=== PATIENT | male | born 1960 | race African-American/Black ===

== ENCOUNTER 2017-09-27 11:36 | Inpatient (IN) | payer OTHER ==
[2017-09-27 12:52] VITALS: BMI 23.9
--- NOTE | 2017-09-27 15:30 | HP ---
CIWA Score - CIWA Score Nausea/Vomitin Muscle Tremors: 3 Anxiety: 3 Agitation: 3 Paroxysmal Sweats: 2 Orientation: 0-Oriented Tacttile Disturbances: 1-Very Mild Itch/Numbness Auditory Disturbances: 1-Very Mild Visual Disturbances: 0-None Headache: 2-Mild CIWA-Ar Total Score: 18 Admission ROS S - [facility] Chief Complaint: i need help to stop drinking alcohol and cocaine Allergies/Adverse Reactions: Allergies Allergy/AdvReac Type Severity Reaction Status Date / Time meloxicam [From Mobic] Allergy Severe Hives Verified 09/27/17 15:20 tramadol HCl [From Ultram] Allergy Severe Rash Verified 09/27/17 15:20 chlordiazepoxide Allergy Unknown Rash Verified 09/27/17 15:20 tuna Allergy Mild scratchy Uncoded 09/27/17 15:20 throat, nausea LIVER Allergy Unknown Rash Uncoded 11/13/15 16:17 History of Present Illness: this 57 years old male with alcohol dependence and cocaine,seeking detox, withdrawal symptom,last treatment in 01/22 unknown facility asthma old injury of right knee ambulation with cane hypertension type 2 dm no med anxiety,depression,insomnia bph Exam Limitations: No Limitations - Ebola screening Have you traveled outside of the country in the last 21 days: No Have you been sick,other than usual withdrawal symptoms: No - Review of Systems Constitutional: Loss of Appetite, Malaise, Night Sweats, Changes in sleep, Weakness, Unintentional Wgt. Loss EENT: reports: Tearing, Nose Congestion, Other (hard of hearing both) Respiratory: reports: No Symptoms reported (history of asthma) Cardiac: reports: No Symptoms Reported GI: reports: Diarrhea, Nausea, Vomiting, Abdominal cramping : reports: No Symptoms Reported, Other (turp) Musculoskeletal: reports: Back Pain, Joint Pain, Muscle Pain Integumentary: reports: Dryness Neuro: reports: Headache, Tremors Endocrine: reports: No Symptoms Reported Hematology: reports: No Symptoms Reported Psychiatric: reports: Agitated, Anxious, Depressed Patient History - Patient Medical History Hx Anemia: Yes (SUPPLEMENTS IN THE PAST) Hx Asthma: Yes Hx Chronic Obstructive Pulmonary Disease (COPD): No Hx Cancer: No Hx Cardiac Disorders: No Hx Congestive Heart Failure: No Hx Hypertension: Yes (no med) Hx Hypercholesterolemia: Yes (no medication--CHOLESTEROL IS LOW NOW) Hx Pacemaker: No HX Cerebrovascular Accident: No Hx Seizures: No Hx Dementia: No Hx Diabetes: No Hx Gastrointestinal Disorders: No Hx Liver Disease: Yes (hep b) Hx Genitourinary Disorders: No Hx Sexually Transmitted Disorders: No Hx Renal Disease (ESRD): No Hx Thyroid Disease: No Hx Human Immunodeficiency Virus (HIV): No (NEGATIVE HX 2014) Hx Hepatitis C: No (postivie hep B) Hx Depression: Yes (anxiety) Hx Suicide Attempt: No Hx Bipolar Disorder: No Hx Schizophrenia: No Other Medical History: no suicidal,no homicidal - Patient Surgical History Past Surgical History: Yes Hx Neurologic Surgery: No Hx Cataract Extraction: No Hx Cardiac Surgery: No Hx Lung Surgery: No Hx Breast Surgery: No Hx Breast Biopsy: No Hx Abdominal Surgery: No Hx Appendectomy: No Hx Cholecystectomy: No Hx Genitourinary Surgery: No Hx Section: No Hx Orthopedic Surgery: No Other Surgical History: ORAL SX. TO WIRE JAW-/,EXCISIONAL BX. OF LYMPH NODE LT. SIDE OF NECK Anesthesia Reaction: No - PPD History Previous Implant?: Yes Documented Results: Positive w/o proof Implanted On Prior [facility] Admission?: No Results: hx positive PPD PPD to be Administered?: No - Smoking Cessation Smoking history: Current every day smoker Have you smoked in the past 12 months: Yes Aproximately how many cigarettes per day: 3 Cigars Per Day: 0 Hx Chewing Tobacco Use: No Initiated information on smoking cessation: Yes 'Breaking Loose' booklet given: 09/27/17 - Substance & Tx. History Hx Alcohol Use: Yes Hx Substance Use: Yes Substance Use Type: Alcohol, Cocaine Hx Substance Use Treatment: Yes (in 01/22) Family Disease History - Family Disease History Family Disease History: Heart Disease: Mother (HTN, gallstones), Other: Father ( ALCOHOLISM) Admission Physical Exam S - Vital Signs Vital Signs: Vital Signs - 24 hr 09/27/17 12:51 Temperature 97.1 F L Pulse Rate 57 L Respiratory 18 Rate Blood Pressure 118/75 - Physical General Appearance: Yes: Moderate Distress, Tremorous, Irritable, Sweating, Anxious HEENTM: Yes: Normal ENT Inspection, HELEN, Pharynx Normal, Other (hard of hearing ) Respiratory: Yes: Within Normal Limits, Lungs Clear, Normal Breath Sounds Neck: Yes: Within Normal Limits, Supple, Trachea in good position Breast: Yes: Within Normal Limits Cardiology: Yes: Within Normal Limits, Regular Rhythm, Regular Rate, S1, S2 Abdominal: Yes: Within Normal Limits, Normal Bowel Sounds, Non Tender, Flat, Soft Genitourinary: Yes: Within Normal Limits Back: Yes: Muscle Spasm Musculoskeletal: Yes: Back pain, Joint Stiffness (pain in the right knee ambulation with cane), Muscle Pain Extremities: Yes: Tremors Neurological: Yes: crepe box tender II-XII NML intact, Fully Oriented, Alert, Motor Strength 5/5 Integumentary: Yes: Dry Lymphatic: Yes: Within Normal Limits - Diagnostic (1) Alcohol dependence with uncomplicated withdrawal Current Visit: No Status: Chronic (2) BPH (benign prostatic hyperplasia) Current Visit: No Status: Chronic (3) Cocaine dependence Current Visit: No Status: Chronic (4) Nicotine dependence Current Visit: No Status: Chronic Qualifiers: Nicotine product type: cigarettes Substance use status: uncomplicated Qualified Code(s): F17.210 - Nicotine dependence, cigarettes, uncomplicated (5) PPD positive, treated Current Visit: No Status: Chronic (6) Bipolar 1 disorder Current Visit: No Status: Suspected (7) Ambulates with cane Current Visit: Yes Status: Acute Cleared for Admission [facility] - Detox or Rehab [facility] Level of Care: Medically Managed Detox Regimen/Protocol: Valium [facility] Breath Alcohol Content Breath Alcohol Content: 0 Urine Drug Screen - Results Drug Screen Negative: No Urine Drug Screen Results: ARLENE-Cocaine
[2017-09-27] MEDS ORDERED: P-EPHED 60MG/TRIPROLIDI 2.5MG TABLET PO PRN (15:42)
[2017-09-27] MEDS ORDERED: ACETAMINOPHEN 325 MG TABLET (FP) PO PRN (15:42)
[2017-09-27] MEDS ORDERED: LOPERAMIDE HCL 2 MG CAPSULE PO PRN (15:42)
[2017-09-27] MEDS ORDERED: MENTHOL/PHENOL 1 EACH UD MM PRN (15:42)
[2017-09-27] MEDS ORDERED: guaiFENesin/D-METHORPHAN HB 10 ML UNIT-DOSE CUPS PO PRN (15:42)
[2017-09-27] MEDS ORDERED: MAGNESIUM CITRATE 300 ML BOTTLE PO PRN (15:42)
[2017-09-27] MEDS ORDERED: diazePAM 5 MG TABLET PO PRN (15:42)
[2017-09-27] MEDS ORDERED: MAGNESIUM HYDROX 2400MG/30ML ORAL SUSPENSION 30 ML CUP PO PRN (15:42)
[2017-09-27] MEDS ORDERED: MAG HYDROX/AL HYDROX/SIMETH 30 ML UNIT-DOSE CUP PO PRN (15:42)
[2017-09-27] MEDS ORDERED: ALBUTEROL SO4 8 GM HFA INHALER IH PRN (15:46)
[2017-09-27] MEDS ORDERED: diazePAM 5 MG TABLET PO ONE (16:30)
[2017-09-27] MEDS ORDERED: MELATONIN 5 MG TABLETS PO PRN (22:00)
[2017-09-27] MEDS: THIAMINE HCL 100 MG TABLET (FP) PO SCH (22:09)
[2017-09-27] MEDS: diazePAM 5 MG TABLET PO SCH (22:09)
[2017-09-27 23:25] LABS: URINE APPEARANCE CLEAR; URINE BILIRUBIN NEGATIVE (<2.0 mg/dL); URINE COLOR YELLOW; URINE GLUCOSE (UA) NEGATIVE (NEGATIVE); URINE KETONE NEGATIVE (NEGATIVE); URINE LEUK ESTERASE NEGATIVE (NEGATIVE); URINE NITRITE NEGATIVE (NEGATIVE); URINE PROTEIN NEGATIVE (NEGATIVE); URINE UROBILINOGEN NEGATIVE mg/dL (0.2-1.0)
[2017-09-28] MEDS: diazePAM 5 MG TABLET PO SCH ×3 (06:02→22:07)
[2017-09-28 10:23] LABS: HEMATOCRIT 40.1 % (35.4-49); HEMOGLOBIN 13.6 GM/dL (11.7-16.9); MCH 31.8 pg (25.7-33.7); MEAN CELL VOLUME 93.5 fl (80-96); MEAN PLT VOLUME 8.7 fl (7.5-11.1); PLATELET COUNT 244 K/MM3 (134-434); RBC 4.29 M/mm3 (4.00-5.60); RDW 12.3 % (11.9-15.9); WHITE BLOOD COUNT 5.6 K/mm3 (4.0-10.0)
[2017-09-28 10:32] LABS: ALBUMIN 3.4 g/dl (3.4-5.0); ANION GAP 10 MMOL/L (8-16); BLOOD UREA NITROGEN 15 mg/dL (7-18); CALCIUM 8.4 mg/dL (8.5-10.1); CHLORIDE 105 mmol/L (98-107); CO2 27 mmol/L (21-32); GLUCOSE,RANDOM 170 mg/dL (74-106); POTASSIUM 3.9 mmol/L (3.5-5.1); SODIUM 142 mmol/L (136-145)
[2017-09-28 10:36] LABS: ALK PHOS 51 U/L (45-117); BILIRUBIN,TOTAL 0.2 mg/dL (0.2-1.0); CREATININE 1.2 mg/dL (0.7-1.3); SGOT/AST 11 U/L (15-37); SGPT/ALT 29 U/L (12-78); TOT PROT 6.3 g/dl (6.4-8.2)
[2017-09-28] MEDS: PRENATAL VITAMINS W/ FOLIC ACID TABLET (FP) PO SCH (10:41)
--- NOTE | 2017-09-28 11:00 | CONSULT ---
[facility] Psychiatric Consult - Data Date of interview: 09/28/17 Admission source: [facility] Identifying data: Patient is a 57 year old male, father of approximately 50 children, homeless, and currently not receiving financial assistance. This is one of multiple admissions for patient. Pt. admitted to for alcohol and cocaine dependence. Substance Abuse History: Smoking Cessation. Smoking history: Current every day smoker. Have you smoked in the past 12 months: Yes. Aproximately how many cigarettes per day: 3. Cigars Per Day: 0. Hx Chewing Tobacco Use: No. Initiated information on smoking cessation: Yes. 'Breaking Loose' booklet given : 09/27/17. - Substance & Tx. History. Hx Alcohol Use: Yes. Hx Substance Use : Yes. Substance Use Type: Alcohol, Cocaine. Hx Substance Use Treatment: Yes ( in 01/22) Medical History: anemia, asthma, hypertension, Hep B, hypercholesterolemia, ORAL SX. TO WIRE JAW-/,EXCISIONAL BX. OF LYMPH NODE LT. SIDE OF NECK Psychiatric History: Patient denies h/o psychiatric hospitalization. Pt. unable to provide a clear cohesive psychiatric history. Pt has received psychiatric service during his incarceration of 17 years. States he was prescribed vistaril and seroquel. Most recent [place] was [place] at [place] last year. States he continues to receive seroquel 50mg. As per pharmacy claims patient is prescribed seroquel 50mg BID + Abilify 10mg. Pt. refuses to restart abilify. Pt. denies h/o suicide attempt. Physical/Sexual Abuse/Trauma History: denies. Mental Status Exam - Mental Status Exam Alert and Oriented to: Time, Place, Person Cognitive Function: Good Patient Appearance: Well Groomed Mood: Hopeful Affect: Mood Congruent Patient Behavior: Talkative, Appropriate, Cooperative Speech Pattern: Excessive, Pressured Voice Loudness: Normal, Mildly Loud Thought Process: Goal Oriented Thought Disorder: Not Present Hallucinations: Denies Suicidal Ideation: Denies Homicidal Ideation: Denies Insight/Judgement: Poor Sleep: Poorly Appetite: Fair Muscle strength/Tone: Normal Gait/Station: Other (Pt. ambulates with a cane.) Psychiatric Findings - Problem List ([place] 1, 2,3) (1) Alcohol dependence with uncomplicated withdrawal Current Visit: Yes Status: Acute (2) Cocaine dependence Current Visit: Yes Status: Chronic (3) Bipolar disorder, current episode hypomanic Current Visit: Yes Status: Acute (4) Insomnia Current Visit: Yes Status: Acute - Initial Treatment Plan Initial Treatment Plan: Psychoeducation provided. Detoxification in progress. Seroquel 50mg qhs ordered. Benefits and side effects discussed. Verbal consent given.
--- NOTE | 2017-09-28 14:52 | PN ---
[facility] CIWA - CIWA Score Nausea/Vomitin-No Nausea/No Vomiting Muscle Tremors: None Anxiety: 4-Mod. Anxious/Guarded Agitation: 3 Paroxysmal Sweats: No Perspiration Orientation: 0-Oriented Tacttile Disturbances: 2-Mild Itch/Numbness/Burn Auditory Disturbances: 2-Mild Harshness/Frighten Visual Disturbances: 2-Mild Sensitivity Headache: 0-None Present CIWA-Ar Total Score: 13 S Progress Note (SOAP) Subjective: Fatigue, Body Aches, Interrupted Sleep. Objective: PATIENT A & O X 3, OBSERVED AMBULATING ON UNIT. NO ACUTE DISTRESS. 09/28/17 14:50 Vital Signs Temperature 97.6 F 09/28/17 10:08 Pulse Rate 62 09/28/17 10:08 Respiratory Rate 16 09/28/17 10:08 Blood Pressure 110/71 09/28/17 10:08 O2 Sat by Pulse Oximetry (%) Laboratory Tests 09/27/17 09/27/17 09/28/17 15:36 21:44 05:44 WBC RBC Hgb Hct MCV MCH MCHC RDW Plt Count MPV Sodium Potassium Chloride Carbon Dioxide Anion Gap BUN Creatinine Creat Clearance w eGFR POC Glucometer 106 124 Random Glucose Calcium Total Bilirubin AST ALT Alkaline Phosphatase Total Protein Albumin Urine Color Yellow Urine Appearance Clear Urine pH 5.0 Ur Specific [place] 1.025 Urine Protein Negative Urine Glucose (UA) Negative Urine Ketones Negative Urine Blood Negative Urine Nitrite Negative Urine Bilirubin Negative Urine Urobilinogen Negative Ur Leukocyte Esterase Negative RPR Titer 09/28/17 09/28/17 09/28/17 07:00 07:00 07:00 WBC 5.6 RBC 4.29 Hgb 13.6 Hct 40.1 MCV 93.5 MCH 31.8 MCHC 34.0 RDW 12.3 Plt Count 244 MPV 8.7 D Sodium 142 Potassium 3.9 Chloride 105 Carbon Dioxide 27 Anion Gap 10 BUN 15 Creatinine 1.2 Creat Clearance w eGFR > 60 POC Glucometer Random Glucose 170 H D Calcium 8.4 L Total Bilirubin 0.2 AST 11 L ALT 29 D Alkaline Phosphatase 51 Total Protein 6.3 L Albumin 3.4 Urine Color Urine Appearance Urine pH Ur Specific [place] Urine Protein Urine Glucose (UA) Urine Ketones Urine Blood Urine Nitrite Urine Bilirubin Urine Urobilinogen Ur Leukocyte Esterase RPR Titer Nonreactive LABS NOTED. Assessment: 09/28/17 14:51 WITHDRAWAL SYMPTOMS. Plan: CONTINUE DETOX.
--- NOTE | 2017-09-28 16:07 | EKG ---
Test Reason : Blood Pressure : / mmHG Vent. Rate : 054 BPM Atrial Rate : 054 BPM P-R Int : 178 ms QRS Dur : 090 ms QT Int : 430 ms P-R-T Axes : 057 025 030 degrees QTc Int : 407 ms SINUS BRADYCARDIA OTHERWISE NORMAL ECG NO PREVIOUS ECGS AVAILABLE Confirmed by Caridad Blake ([id number]) on 09/28/2017 4:07:07 PM Referred By: Jazlyn Tinoco Confirmed By:Caridad Blake
[2017-09-28] MEDS: LIDOCAINE 5% TOPICAL PATCH TP SCH ×2 (17:57)
[2017-09-28] MEDS ORDERED: QUEtiapine FUMARATE 50 MG TABLET PO SCH (22:00)
[2017-09-28] MEDS: THIAMINE HCL 100 MG TABLET (FP) PO SCH (22:07)
[2017-09-28] MEDS: QUEtiapine FUMARATE 50 MG TABLET PO SCH (22:07)
[2017-09-28] MEDS: LIDOCAINE PATCH REMOVAL MC SCH (22:07)
[2017-09-29] MEDS: LIDOCAINE 5% TOPICAL PATCH TP SCH ×2 (10:29)
[2017-09-29] MEDS: PRENATAL VITAMINS W/ FOLIC ACID TABLET (FP) PO SCH (10:29)
[2017-09-29] MEDS: diazePAM 5 MG TABLET PO SCH ×2 (10:29→22:06)
--- NOTE | 2017-09-29 12:48 | PN ---
[facility] CIWA - CIWA Score Nausea/Vomitin-No Nausea/No Vomiting Muscle Tremors: None Anxiety: 4-Mod. Anxious/Guarded Agitation: 2 Paroxysmal Sweats: No Perspiration Orientation: 0-Oriented Tacttile Disturbances: 2-Mild Itch/Numbness/Burn Auditory Disturbances: 1-Very Mild Visual Disturbances: 2-Mild Sensitivity Headache: 0-None Present CIWA-Ar Total Score: 11 S Progress Note (SOAP) Subjective: Body Aches, Fatigue, Anxious. Objective: PATIENT A & O X 3, OBSERVED AMBULATING ON UNIT. NO ACUTE DISTRESS. 09/29/17 12:49 Vital Signs Temperature 96.8 F L 09/29/17 09:58 Pulse Rate 74 09/29/17 09:58 Respiratory Rate 16 09/29/17 09:58 Blood Pressure 125/77 09/29/17 09:58 O2 Sat by Pulse Oximetry (%) Laboratory Tests 09/27/17 09/27/17 09/28/17 15:36 21:44 05:44 WBC RBC Hgb Hct MCV MCH MCHC RDW Plt Count MPV Sodium Potassium Chloride Carbon Dioxide Anion Gap BUN Creatinine Creat Clearance w eGFR POC Glucometer 106 124 Random Glucose Calcium Total Bilirubin AST ALT Alkaline Phosphatase Total Protein Albumin Urine Color Yellow Urine Appearance Clear Urine pH 5.0 Ur Specific [place] 1.025 Urine Protein Negative Urine Glucose (UA) Negative Urine Ketones Negative Urine Blood Negative Urine Nitrite Negative Urine Bilirubin Negative Urine Urobilinogen Negative Ur Leukocyte Esterase Negative RPR Titer 09/28/17 09/28/17 09/28/17 07:00 07:00 07:00 WBC 5.6 RBC 4.29 Hgb 13.6 Hct 40.1 MCV 93.5 MCH 31.8 MCHC 34.0 RDW 12.3 Plt Count 244 MPV 8.7 D Sodium 142 Potassium 3.9 Chloride 105 Carbon Dioxide 27 Anion Gap 10 BUN 15 Creatinine 1.2 Creat Clearance w eGFR > 60 POC Glucometer Random Glucose 170 H D Calcium 8.4 L Total Bilirubin 0.2 AST 11 L ALT 29 D Alkaline Phosphatase 51 Total Protein 6.3 L Albumin 3.4 Urine Color Urine Appearance Urine pH Ur Specific [place] Urine Protein Urine Glucose (UA) Urine Ketones Urine Blood Urine Nitrite Urine Bilirubin Urine Urobilinogen Ur Leukocyte Esterase RPR Titer Nonreactive 09/29/17 05:54 WBC RBC Hgb Hct MCV MCH MCHC RDW Plt Count MPV Sodium Potassium Chloride Carbon Dioxide Anion Gap BUN Creatinine Creat Clearance w eGFR POC Glucometer 126 Random Glucose Calcium Total Bilirubin AST ALT Alkaline Phosphatase Total Protein Albumin Urine Color Urine Appearance Urine pH Ur Specific [place] Urine Protein Urine Glucose (UA) Urine Ketones Urine Blood Urine Nitrite Urine Bilirubin Urine Urobilinogen Ur Leukocyte Esterase RPR Titer LABS NOTED. Assessment: 09/29/17 12:50 WITHDRAWAL SYMPTOMS. Plan: CONTINUE DETOX.
[2017-09-29] MEDS: QUEtiapine FUMARATE 50 MG TABLET PO SCH (22:06)
[2017-09-29] MEDS: LIDOCAINE PATCH REMOVAL MC SCH (22:06)
[2017-09-29] MEDS: THIAMINE HCL 100 MG TABLET (FP) PO SCH (22:06)
[2017-09-30] MEDS: PRENATAL VITAMINS W/ FOLIC ACID TABLET (FP) PO SCH (10:14)
[2017-09-30] MEDS: LIDOCAINE 5% TOPICAL PATCH TP SCH ×2 (10:14)
[2017-09-30] MEDS: diazePAM 5 MG TABLET PO SCH ×2 (10:14→22:12)
--- NOTE | 2017-09-30 19:42 | PN ---
[facility] Progress Note (SOAP) Subjective: Body Aches, Interrupted Sleep. Objective: PATIENT A & O X 3, OBSERVED AMBULATING ON UNIT. NO ACUTE DISTRESS. 09/30/17 19:41 Vital Signs Temperature 97.0 F L 09/30/17 18:00 Pulse Rate 76 09/30/17 18:00 Respiratory Rate 18 09/30/17 18:00 Blood Pressure 114/63 09/30/17 18:00 O2 Sat by Pulse Oximetry (%) Laboratory Tests 09/27/17 09/27/17 09/28/17 15:36 21:44 05:44 WBC RBC Hgb Hct MCV MCH MCHC RDW Plt Count MPV Sodium Potassium Chloride Carbon Dioxide Anion Gap BUN Creatinine Creat Clearance w eGFR POC Glucometer 106 124 Random Glucose Calcium Total Bilirubin AST ALT Alkaline Phosphatase Total Protein Albumin Urine Color Yellow Urine Appearance Clear Urine pH 5.0 Ur Specific [place] 1.025 Urine Protein Negative Urine Glucose (UA) Negative Urine Ketones Negative Urine Blood Negative Urine Nitrite Negative Urine Bilirubin Negative Urine Urobilinogen Negative Ur Leukocyte Esterase Negative RPR Titer 09/28/17 09/28/17 09/28/17 07:00 07:00 07:00 WBC 5.6 RBC 4.29 Hgb 13.6 Hct 40.1 MCV 93.5 MCH 31.8 MCHC 34.0 RDW 12.3 Plt Count 244 MPV 8.7 D Sodium 142 Potassium 3.9 Chloride 105 Carbon Dioxide 27 Anion Gap 10 BUN 15 Creatinine 1.2 Creat Clearance w eGFR > 60 POC Glucometer Random Glucose 170 H D Calcium 8.4 L Total Bilirubin 0.2 AST 11 L ALT 29 D Alkaline Phosphatase 51 Total Protein 6.3 L Albumin 3.4 Urine Color Urine Appearance Urine pH Ur Specific [place] Urine Protein Urine Glucose (UA) Urine Ketones Urine Blood Urine Nitrite Urine Bilirubin Urine Urobilinogen Ur Leukocyte Esterase RPR Titer Nonreactive 09/29/17 09/29/17 09/30/17 05:54 16:14 07:31 WBC RBC Hgb Hct MCV MCH MCHC RDW Plt Count MPV Sodium Potassium Chloride Carbon Dioxide Anion Gap BUN Creatinine Creat Clearance w eGFR POC Glucometer 126 118 118 Random Glucose Calcium Total Bilirubin AST ALT Alkaline Phosphatase Total Protein Albumin Urine Color Urine Appearance Urine pH Ur Specific [place] Urine Protein Urine Glucose (UA) Urine Ketones Urine Blood Urine Nitrite Urine Bilirubin Urine Urobilinogen Ur Leukocyte Esterase RPR Titer LABS NOTED. Assessment: WITHDRAWAL SYMPTOMS. 09/30/17 19:42 Plan: CONTINUE DETOX.
[2017-09-30] MEDS: THIAMINE HCL 100 MG TABLET (FP) PO SCH (22:12)
[2017-09-30] MEDS: QUEtiapine FUMARATE 50 MG TABLET PO SCH (22:12)
[2017-09-30] MEDS: LIDOCAINE PATCH REMOVAL MC SCH (22:12)
[2017-10-01 06:35] VITALS: BP 118/75; PULSE 67; TEMP 97.2
[2017-10-01] MEDS ORDERED: diazePAM 5 MG TABLET PO SCH (10:00)
--- NOTE | 2017-10-01 11:41 | DS ---
[facility] Detox Discharge Summary Admission Date: 09/27/17 Discharge Date: 10/01/17 - History Present History: Alcohol Dependence, Cocaine Dependence Pertinent Past History: PPD PPD Positive BPH - Physical Exam Results Vital Signs: Vital Signs Temperature 97.2 F L 10/01/17 06:34 Pulse Rate 67 10/01/17 06:34 Respiratory Rate 18 10/01/17 06:34 Blood Pressure 118/75 10/01/17 06:34 O2 Sat by Pulse Oximetry (%) Pertinent Admission Physical Exam Findings: Withdrawal symptoms Laboratory Tests 09/27/17 09/27/17 09/28/17 15:36 21:44 05:44 WBC RBC Hgb Hct MCV MCH MCHC RDW Plt Count MPV Sodium Potassium Chloride Carbon Dioxide Anion Gap BUN Creatinine Creat Clearance w eGFR POC Glucometer 106 124 Random Glucose Calcium Total Bilirubin AST ALT Alkaline Phosphatase Total Protein Albumin Urine Color Yellow Urine Appearance Clear Urine pH 5.0 Ur Specific [place] 1.025 Urine Protein Negative Urine Glucose (UA) Negative Urine Ketones Negative Urine Blood Negative Urine Nitrite Negative Urine Bilirubin Negative Urine Urobilinogen Negative Ur Leukocyte Esterase Negative RPR Titer 09/28/17 09/28/17 09/28/17 07:00 07:00 07:00 WBC 5.6 RBC 4.29 Hgb 13.6 Hct 40.1 MCV 93.5 MCH 31.8 MCHC 34.0 RDW 12.3 Plt Count 244 MPV 8.7 D Sodium 142 Potassium 3.9 Chloride 105 Carbon Dioxide 27 Anion Gap 10 BUN 15 Creatinine 1.2 Creat Clearance w eGFR > 60 POC Glucometer Random Glucose 170 H D Calcium 8.4 L Total Bilirubin 0.2 AST 11 L ALT 29 D Alkaline Phosphatase 51 Total Protein 6.3 L Albumin 3.4 Urine Color Urine Appearance Urine pH Ur Specific [place] Urine Protein Urine Glucose (UA) Urine Ketones Urine Blood Urine Nitrite Urine Bilirubin Urine Urobilinogen Ur Leukocyte Esterase RPR Titer Nonreactive 09/29/17 09/29/17 09/30/17 05:54 16:14 07:31 WBC RBC Hgb Hct MCV MCH MCHC RDW Plt Count MPV Sodium Potassium Chloride Carbon Dioxide Anion Gap BUN Creatinine Creat Clearance w eGFR POC Glucometer 126 118 118 Random Glucose Calcium Total Bilirubin AST ALT Alkaline Phosphatase Total Protein Albumin Urine Color Urine Appearance Urine pH Ur Specific [place] Urine Protein Urine Glucose (UA) Urine Ketones Urine Blood Urine Nitrite Urine Bilirubin Urine Urobilinogen Ur Leukocyte Esterase RPR Titer Labs reviewed - Treatment Hospital Course: Detox Protocol Followed, Detoxed Safely, Responded well - Medication Discharge Medications: Ambulatory Orders Albuterol Sulfate Inhaler - [Ventolin HFA Inhaler -] 2 inh IH Q4H PRN #1 cartridge 04/04/14 Quetiapine Fumarate [Seroquel -] 50 mg PO BID 09/27/17 - Diagnosis (1) Alcohol dependence with uncomplicated withdrawal Status: Acute (2) BPH (benign prostatic hyperplasia) Status: Chronic (3) Cocaine dependence Status: Chronic (4) Nicotine dependence Status: Chronic Qualifiers: Nicotine product type: cigarettes Substance use status: uncomplicated Qualified Code(s): F17.210 - Nicotine dependence, cigarettes, uncomplicated (5) PPD positive, treated Status: Chronic (6) Bipolar 1 disorder Status: Chronic - AMA Did Patient Leave Against Medical Advice: No (F/U with PCP within 1-2 weeks)
== END 2017-10-01 07:27 | disposition home or self-care (01) | DRG 774 ==
LOC: YASAS 11:36 → Y3N 16:04
PROVIDERS: ADMIT Surgery; ATTEND Surgery
PROC: HZ2ZZZZ Detoxification Services for Substance Abuse Treatment (ICD-10-PCS; principal; 2017-09-27)
DX: F10.230 Alcohol dependence with withdrawal, uncomplicated (principal); F14.20 Cocaine dependence, uncomplicated; F17.210 Nicotine dependence, cigarettes, uncomplicated; F31.0 Bipolar disorder, current episode hypomanic; G47.00 Insomnia, unspecified; I10 Essential (primary) hypertension; B19.10 Unspecified viral hepatitis B without hepatic coma; R76.11 Nonspecific reaction to tuberculin skin test without active tuberculosis; R26.2 Difficulty in walking, not elsewhere classified; Z99.89 Dependence on other enabling machines and devices; Z88.5 Allergy status to narcotic agent; Z91.013 Allergy to seafood; Z86.2 Personal history of diseases of the blood and blood-forming organs and certain disorders involving the immune mechanism; Z87.09 Personal history of other diseases of the respiratory system
CPT/HCPCS: 36415; 71046-TC-FY; 80053; 81003; 82962; 85027; 86593; 93005; 93010

== ENCOUNTER 2017-12-15 09:23 | Inpatient (IN) | payer OTHER ==
[2017-12-15 10:07] VITALS: BMI 23.4
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
[2017-12-15] MEDS ORDERED: IBUPROFEN 400 MG TABLET (FP) PO PRN (13:43)
[2017-12-15] MEDS ORDERED: diazePAM 5 MG TABLET PO PRN (13:43)
[2017-12-15] MEDS ORDERED: hydrOXYzine PAMOATE 25 MG CAPSULE (FP) PO PRN (13:43)
[2017-12-15] MEDS ORDERED: MENTHOL/PHENOL 1 EACH UD MM PRN (13:43)
[2017-12-15] MEDS ORDERED: LOPERAMIDE HCL 2 MG CAPSULE PO PRN (13:43)
[2017-12-15] MEDS ORDERED: MAGNESIUM HYDROX 2400MG/30ML ORAL SUSPENSION 30 ML CUP PO PRN (13:43)
[2017-12-15] MEDS ORDERED: ACETAMINOPHEN 325 MG TABLET (FP) PO PRN (13:43)
[2017-12-15] MEDS ORDERED: MAG HYDROX/AL HYDROX/SIMETH 30 ML UNIT-DOSE CUP PO PRN (13:43)
[2017-12-15] MEDS ORDERED: MAGNESIUM CITRATE 300 ML BOTTLE PO PRN (13:43)
[2017-12-15] MEDS ORDERED: guaiFENesin/D-METHORPHAN HB 10 ML UNIT-DOSE CUPS PO PRN (13:43)
[2017-12-15] MEDS ORDERED: P-EPHED 60MG/TRIPROLIDI 2.5MG TABLET PO PRN (13:43)
[2017-12-15] MEDS ORDERED: ALBUTEROL SO4 8 GM HFA INHALER IH PRN (13:46)
[2017-12-15] MEDS ORDERED: diazePAM 5 MG TABLET PO ONE (14:00)
[2017-12-15 17:06] LABS: URINE APPEARANCE CLEAR; URINE BILIRUBIN NEGATIVE (<2.0 mg/dL); URINE COLOR YELLOW; URINE GLUCOSE (UA) NEGATIVE (NEGATIVE); URINE KETONE NEGATIVE (NEGATIVE); URINE LEUK ESTERASE NEGATIVE (NEGATIVE); URINE NITRITE NEGATIVE (NEGATIVE); URINE PROTEIN NEGATIVE (NEGATIVE); URINE UROBILINOGEN NEGATIVE mg/dL (0.2-1.0)
[2017-12-15] MEDS ORDERED: MELATONIN 5 MG TABLETS PO PRN (22:00)
[2017-12-15] MEDS: THIAMINE HCL 100 MG TABLET (FP) PO SCH (22:21)
[2017-12-15] MEDS: diazePAM 5 MG TABLET PO SCH (22:21)
[2017-12-16] MEDS: diazePAM 5 MG TABLET PO SCH ×3 (05:18→22:20)
[2017-12-16] MEDS: PRENATAL VITAMINS W/ FOLIC ACID TABLET (FP) PO SCH (10:27)
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
--- NOTE | 2017-12-16 10:37 | PN ---
[facility] CIWA - CIWA Score Nausea/Vomitin-No Nausea/No Vomiting Muscle Tremors: 2 Anxiety: 3 Agitation: 2 Paroxysmal Sweats: 2 Orientation: 0-Oriented Tacttile Disturbances: 2-Mild Itch/Numbness/Burn Auditory Disturbances: 0-None Visual Disturbances: 1-Very Mild Sensitivity Headache: 0-None Present CIWA-Ar Total Score: 12 S Progress Note (SOAP) Subjective: interrupted sleep, anxious, body aches, b/l knee pain Objective: 12/16/17 10:33 Vital Signs Temperature 97.3 F L 12/16/17 06:10 Pulse Rate 58 L 12/16/17 06:10 Respiratory Rate 18 12/16/17 06:10 Blood Pressure 104/69 12/16/17 06:10 O2 Sat by Pulse Oximetry (%) Laboratory Last Values Urine Color Yellow 12/15/17 15:30 Urine Appearance Clear 12/15/17 15:30 Urine pH 5.0 (5.0-8.0) 12/15/17 15:30 Ur Specific [place] 1.021 (1.010-1.035) 12/15/17 15:30 Urine Protein Negative (NEGATIVE) 12/15/17 15:30 Urine Glucose (UA) Negative (NEGATIVE) 12/15/17 15:30 Urine Ketones Negative (NEGATIVE) 12/15/17 15:30 Urine Blood Negative (NEGATIVE) 12/15/17 15:30 Urine Nitrite Negative (NEGATIVE) 12/15/17 15:30 Urine Bilirubin Negative (<2.0 mg/dL) 12/15/17 15:30 Urine Urobilinogen Negative mg/dL (0.2-1.0) 12/15/17 15:30 Ur Leukocyte Esterase Negative (NEGATIVE) 12/15/17 15:30 additional labs pending Aox3 no distress no adventitious breath sounds full ROM ambulatory withdrawal sx continue detox continue to monitor Patient to follow up with PCP re: knee OA .
[2017-12-16 11:24] LABS: ALBUMIN 4.3 g/dl (3.4-5.0); ALK PHOS 58 U/L (45-117); ANION GAP 8 MMOL/L (8-16); BILIRUBIN,TOTAL 0.9 mg/dL (0.2-1); BLOOD UREA NITROGEN 13 mg/dL (7-18); CALCIUM 9.1 mg/dL (8.5-10.1); CHLORIDE 103 mmol/L (98-107); CO2 29 mmol/L (21-32); CREATININE 1.3 mg/dL (0.55-1.3); GLUCOSE,RANDOM 79 mg/dL (74-106); SGOT/AST 15 U/L (15-37); SGPT/ALT 21 U/L (13-61); SODIUM 140 mmol/L (136-145); TOT PROT 7.7 g/dl (6.4-8.2)
[2017-12-16 11:26] LABS: HEMATOCRIT 43.1 % (35.4-49); HEMOGLOBIN 14.2 GM/dL (11.7-16.9); MCH 30.9 pg (25.7-33.7); MCHC 33.1 g/dl (32.0-35.9); MEAN CELL VOLUME 93.4 fl (80-96); MEAN PLT VOLUME 9.1 fl (7.5-11.1); PLATELET COUNT 290 K/MM3 (134-434); RBC 4.61 M/mm3 (4.00-5.60); RDW 12.5 % (11.9-15.9); WHITE BLOOD COUNT 6.9 K/mm3 (4.0-10.0)
[2017-12-16] MEDS: THIAMINE HCL 100 MG TABLET (FP) PO SCH (22:20)
[2017-12-16] MEDS: QUEtiapine FUMARATE 100 MG TABLET (FP) PO SCH (22:20)
[2017-12-17] MEDS: diazePAM 5 MG TABLET PO SCH ×2 (10:21→22:17)
[2017-12-17] MEDS: PRENATAL VITAMINS W/ FOLIC ACID TABLET (FP) PO SCH (10:21)
--- NOTE | 2017-12-17 13:12 | PN ---
S CIWA - CIWA Score Nausea/Vomitin Muscle Tremors: 3 Anxiety: 2 Agitation: 2 Paroxysmal Sweats: 3 Orientation: 0-Oriented Tacttile Disturbances: 0-None Auditory Disturbances: 0-None Visual Disturbances: 0-None Headache: 1-Very Mild CIWA-Ar Total Score: 13 BHS Progress Note (SOAP) Subjective: Sweating, interrupted sleep Objective: 12/17/17 13:09 Last Vital Signs Temp Pulse Resp BP Pulse Ox 98.0 F 74 16 128/82 12/17/17 09:48 12/17/17 09:48 12/17/17 09:48 12/17/17 09:48 Laboratory Tests 12/15/17 12/16/17 12/16/17 15:30 05:40 05:40 WBC 6.9 RBC 4.61 Hgb 14.2 Hct 43.1 MCV 93.4 MCH 30.9 MCHC 33.1 RDW 12.5 Plt Count 290 MPV 9.1 Sodium 140 Potassium 4.0 Chloride 103 Carbon Dioxide 29 Anion Gap 8 BUN 13 Creatinine 1.3 Creat Clearance w eGFR 57.10 Random Glucose 79 Calcium 9.1 Total Bilirubin 0.9 AST 15 ALT 21 Alkaline Phosphatase 58 Total Protein 7.7 Albumin 4.3 Urine Color Yellow Urine Appearance Clear Urine pH 5.0 Ur Specific [place] 1.021 Urine Protein Negative Urine Glucose (UA) Negative Urine Ketones Negative Urine Blood Negative Urine Nitrite Negative Urine Bilirubin Negative Urine Urobilinogen Negative Ur Leukocyte Esterase Negative RPR Titer 12/16/17 05:40 WBC RBC Hgb Hct MCV MCH MCHC RDW Plt Count MPV Sodium Potassium Chloride Carbon Dioxide Anion Gap BUN Creatinine Creat Clearance w eGFR Random Glucose Calcium Total Bilirubin AST ALT Alkaline Phosphatase Total Protein Albumin Urine Color Urine Appearance Urine pH Ur Specific [place] Urine Protein Urine Glucose (UA) Urine Ketones Urine Blood Urine Nitrite Urine Bilirubin Urine Urobilinogen Ur Leukocyte Esterase RPR Titer Nonreactive Labs reviewed: prerenal azotemia Assessment: 12/17/17 13:11 Withdrawal sxs Noted with prerenal azotemia Plan: Continue detox Prerenal azotemia: encouraged PO water intake
--- NOTE | 2017-12-17 19:46 | EKG ---
Test Reason : Blood Pressure : / mmHG Vent. Rate : 071 BPM Atrial Rate : 071 BPM P-R Int : 186 ms QRS Dur : 090 ms QT Int : 398 ms P-R-T Axes : 059 019 026 degrees QTc Int : 432 ms NORMAL SINUS RHYTHM NORMAL ECG WHEN COMPARED WITH ECG OF 27-SEP-2017 16:47, NO SIGNIFICANT CHANGE WAS FOUND Confirmed by AVELINA MCGREGOR MD ([id number]) on 12/17/2017 7:46:10 PM Referred By: Confirmed By:AVELINA MCGREGOR MD
[2017-12-17] MEDS: THIAMINE HCL 100 MG TABLET (FP) PO SCH (22:17)
[2017-12-17] MEDS: QUEtiapine FUMARATE 100 MG TABLET (FP) PO SCH (22:17)
[2017-12-18] MEDS: diazePAM 5 MG TABLET PO SCH ×2 (10:25→22:22)
[2017-12-18] MEDS: PRENATAL VITAMINS W/ FOLIC ACID TABLET (FP) PO SCH (10:25)
--- NOTE | 2017-12-18 15:26 | PN ---
BHS Progress Note (SOAP) Subjective: PAIN TO B/L KNEE SWEATS Objective: 12/18/17 15:23 a & o X 3 gait steaDY NO DEFORMITY TO KNEES Vital Signs Temperature 97.3 F L 12/18/17 13:24 Pulse Rate 84 12/18/17 13:24 Respiratory Rate 20 12/18/17 13:24 Blood Pressure 135/83 12/18/17 13:24 O2 Sat by Pulse Oximetry (%) Assessment: 12/18/17 15:24 WITHDRAWAL SX CHRONIC KNEE PAIN Plan: CONTINUE DETOX PMD ON D/C FOR CHRONIC KNEE PAIN D/C IN AM
[2017-12-18] MEDS: QUEtiapine FUMARATE 100 MG TABLET (FP) PO SCH (22:21)
[2017-12-18] MEDS: THIAMINE HCL 100 MG TABLET (FP) PO SCH (22:22)
[2017-12-19 06:31] VITALS: BP 105/64; PULSE 67; TEMP 96.7
[2017-12-19] MEDS ORDERED: diazePAM 5 MG TABLET PO SCH (10:00)
--- NOTE | 2017-12-19 11:05 | DS ---
[facility] Detox Discharge Summary Admission Date: 12/15/17 Discharge Date: 12/19/17 - History Present History: Alcohol Dependence - Physical Exam Results Vital Signs: Vital Signs Temperature 96.7 F L 12/19/17 06:30 Pulse Rate 67 12/19/17 06:30 Respiratory Rate 18 12/19/17 06:30 Blood Pressure 105/64 12/19/17 06:30 O2 Sat by Pulse Oximetry (%) Pertinent Admission Physical Exam Findings: PATIENT COMPLETED DETOX WITHOUT ADVERSE EVENT. PATIENT ENCOURAGED TO ATTEND GROUP MEETINGS TO PREVENT RELAPSE, TO FOLLOW UP WITH PCP WITHIN ONE WEEK OF D/C , AND TO SEEK MEDICAL ATTENTION IF WITHDRAWAL SYMPTOMS OCCUR. D/C INSTRUCTIONS GIVEN TO PATIENT BY STAFF. - Treatment Hospital Course: Detox Protocol Followed, Detoxed Safely, Responded well, Discharged Condition Good - Medication Discharge Medications: Ambulatory Orders Albuterol Sulfate Inhaler - [Ventolin HFA Inhaler -] 2 inh IH Q4H PRN #1 cartridge 04/04/14 Quetiapine Fumarate [Seroquel -] 50 mg PO BID 09/27/17 Quetiapine Fumarate [Seroquel] 100 mg PO HS #30 tablet 12/16/17 - AMA Did Patient Leave Against Medical Advice: No
== END 2017-12-19 09:15 | disposition home or self-care (01) | DRG 774 ==
LOC: YASAS 09:23 → Y3N 13:47
PROC: HZ2ZZZZ Detoxification Services for Substance Abuse Treatment (ICD-10-PCS; principal; 2017-12-15)
DX: F10.230 Alcohol dependence with withdrawal, uncomplicated (principal); F14.20 Cocaine dependence, uncomplicated; F17.210 Nicotine dependence, cigarettes, uncomplicated; F31.9 Bipolar disorder, unspecified; G47.00 Insomnia, unspecified; M25.561 Pain in right knee; M25.562 Pain in left knee; J45.909 Unspecified asthma, uncomplicated; N40.0 Benign prostatic hyperplasia without lower urinary tract symptoms; K21.9 Gastro-esophageal reflux disease without esophagitis; R79.89 Other specified abnormal findings of blood chemistry; R76.11 Nonspecific reaction to tuberculin skin test without active tuberculosis; Z91.14 Patient's other noncompliance with medication regimen; R26.2 Difficulty in walking, not elsewhere classified; Z99.89 Dependence on other enabling machines and devices; Z87.438 Personal history of other diseases of male genital organs; Z88.8 Allergy status to other drugs, medicaments and biological substances
CPT/HCPCS: 36415; 80053; 81003; 85027; 86593; 93005; 93010

== ENCOUNTER 2018-05-04 08:42 | Inpatient (IN) | payer OTHER ==
[2018-05-04 09:32] VITALS: BMI 24.5
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
[2018-05-04] MEDS ORDERED: NICOTINE POLACRILEX 2 MG GUM BUC PRN (11:31)
[2018-05-04] MEDS ORDERED: MAGNESIUM CITRATE 300 ML BOTTLE PO PRN (11:31)
[2018-05-04] MEDS ORDERED: MAGNESIUM HYDROX 2400MG/30ML ORAL SUSPENSION 30 ML CUP PO PRN (11:31)
[2018-05-04] MEDS ORDERED: MAG HYDROX/AL HYDROX/SIMETH 30 ML UNIT-DOSE CUP PO PRN (11:31)
[2018-05-04] MEDS ORDERED: METHOCARBAMOL 500 MG TABLET PO PRN (11:31)
[2018-05-04] MEDS ORDERED: MELATONIN 5 MG TABLETS PO PRN (11:31)
[2018-05-04] MEDS ORDERED: MENTHOL/PHENOL 1 EACH UD MM PRN (11:31)
[2018-05-04] MEDS: LORazepam 1 MG TABLET PO PRN (13:13)
--- NOTE | 2018-05-04 16:34 | CONSULT ---
[facility] Psychiatric Consult - Data Date of interview: 05/04/18 Admission source: [facility] Identifying data: Readmission to [facility] for this 58 y/o AA male self- referred for detoxification (alcohol, cocaine). Examined at [address] [place] [address]. Patient is single, father of unknown number of dependents (claims more than 40 dependents) , domiciled, unemployed and reportedly deprived of any source of income. Substance Abuse History: Confirmed by patient in this interview. Details in current [facility] report as follows : Smoking history: Current every day smoker. Have you smoked in the past 12 months: Yes. Aproximately how many cigarettes per day: 4. Cigars Per Day: 0. Hx Chewing Tobacco Use: No. Initiated information on smoking cessation: No. - Substances Abused. Alcohol. Route : Oral. Frequency: Daily. Amount used: 1/2 pt. vodka, 8 beers (24 oz ). Age of first use: 13. Date of Last Use: 05/04/18. Cocaine. Route: Inhalation. Frequency: 1-2 times per week. Amount used: $30. Age of first use: 31. Date of Last Use: 05/03/18 Medical History: Remarkable for a history of hypertension, GERD, benign prostatic hyperplasia, bronchial asthma, past treatment for gonorrhea, hepatitis B, anemia, hypercholesterolemia and orthosurgery (fracture of mandible ) in + excision of lymph node (left side of neck). Psychiatric History: In this encounter, the patient denies history of psychiatric hospitalizations. Not consistent with existing records indicative of multiple psychiatric admissions to various facilities ([facility], [facility], [facility], [facility]). Patient has been diagnosed with Bipolar Disorder, MDD and Anxiety Disorder. No current contact with OPD care providers. History of sporadic psychiatric follow-up at the [facility] ([address] Used to be on seroquel + aripriprazole. Mr Santiago has been lost to follow-up for several months. His primary care physician has assiisted him in the past with medication refills (seroquel 150 mg/hs + vistaril). Patient denies history of suicide attempts. Physical/Sexual Abuse/Trauma History: Patient denies history of sexual abuse. Served in the [employer] ([id number]). No involvement in combat operations. Honorably discharged (self-report). No veterans benefits. Additional Comment: Urine Drug Screen Results: ARELNE-Cocaine, OPI-Opiates. Noted. Mental Status Exam - Mental Status Exam Alert and Oriented to: Time, Place, Person Cognitive Function: Good Patient Appearance: Well Groomed Mood: Withdrawn Affect: Appropriate, Normal Range Patient Behavior: Fatigued, Appropriate, Cooperative Speech Pattern: Clear Voice Loudness: Normal Thought Process: Goal Oriented Thought Disorder: Not Present Hallucinations: Denies Suicidal Ideation: Denies Homicidal Ideation: Denies Insight/Judgement: Poor Sleep: Well Appetite: Good Muscle strength/Tone: Normal Gait/Station: Other (not observed; patient remains in bed for duration of bedside interview) Psychiatric Findings - Problem List ([place] 1, 2,3) (1) Alcohol dependence with uncomplicated withdrawal Current Visit: Yes Status: Acute (2) Cocaine dependence Current Visit: Yes Status: Chronic (3) Nicotine dependence Current Visit: Yes Status: Chronic Qualifiers: Nicotine product type: cigarettes Substance use status: uncomplicated Qualified Code(s): F17.210 - Nicotine dependence, cigarettes, uncomplicated (4) Substance induced mood disorder Current Visit: Yes Status: Chronic (5) History of bipolar disorder Current Visit: Yes Status: Chronic (6) Non-compliant patient Current Visit: Yes Status: Chronic - Initial Treatment Plan Initial Treatment Plan: Psychoeducation. Sleep hygiene. Detoxification in progress. Patient declines psychotropic medications other than drugs for detoxification purposes. Relapse prevention : discussed with patient. Support. AA meetings. Groups. Observation.
[2018-05-04] MEDS: LORazepam 2 MG TABLET PO SCH ×2 (21:32→22:22)
[2018-05-04] MEDS ORDERED: QUEtiapine FUMARATE 100 MG TABLET (FP) PO ONE (22:00)
[2018-05-04] MEDS: THIAMINE HCL 100 MG TABLET (FP) PO SCH (22:22)
[2018-05-05] MEDS: LORazepam 2 MG TABLET PO SCH ×2 (06:06→11:09)
[2018-05-05 10:58] LABS: ALBUMIN 4.4 g/dl (3.4-5.0); ALK PHOS 65 U/L (45-117); ANION GAP 6 MMOL/L (8-16); BILIRUBIN,TOTAL 0.4 mg/dL (0.2-1); BLOOD UREA NITROGEN 19 mg/dL (7-18); CALCIUM 9.2 mg/dL (8.5-10.1); CHLORIDE 106 mmol/L (98-107); CO2 28 mmol/L (21-32); CREATININE 1.2 mg/dL (0.55-1.3); GLUCOSE,RANDOM 100 mg/dL (74-106); POTASSIUM 4.2 mmol/L (3.5-5.1); SGOT/AST 17 U/L (15-37); SGPT/ALT 29 U/L (13-61); SODIUM 139 mmol/L (136-145); TOT PROT 7.9 g/dl (6.4-8.2)
[2018-05-05 10:59] LABS: HEMOGLOBIN 14.7 GM/dL (11.7-16.9); MCH 31.3 pg (25.7-33.7); MCHC 33.3 g/dl (32.0-35.9); MEAN PLT VOLUME 9.5 fl (7.5-11.1); PLATELET COUNT 265 K/MM3 (134-434); RBC 4.69 M/mm3 (4.00-5.60); WHITE BLOOD COUNT 5.6 K/mm3 (4.0-10.0)
[2018-05-05] MEDS: LORazepam 1 MG TABLET PO PRN (11:08)
[2018-05-05] MEDS: PRENATAL VITAMINS W/ FOLIC ACID TABLET (FP) PO SCH (11:08)
--- NOTE | 2018-05-05 16:10 | PN ---
[facility] CIWA - CIWA Score Nausea/Vomitin-No Nausea/No Vomiting Muscle Tremors: 3 Anxiety: 2 Agitation: 1-Slight > Activity Paroxysmal Sweats: 3 Orientation: 0-Oriented Tacttile Disturbances: 0-None Auditory Disturbances: 0-None Visual Disturbances: 0-None Headache: 0-None Present CIWA-Ar Total Score: 9 S Progress Note (SOAP) Subjective: Sweats Loss of appetite; requesting ensure Objective: 05/05/18 16:08 A & Ox 3 ambulating steadily Vital Signs Temperature 98 F 05/05/18 14:08 Pulse Rate 80 05/05/18 14:08 Respiratory Rate 18 05/05/18 14:08 Blood Pressure 138/77 05/05/18 14:08 O2 Sat by Pulse Oximetry (%) Laboratory Last Values WBC 5.6 K/mm3 (4.0-10.0) 05/05/18 05:35 RBC 4.69 M/mm3 (4.00-5.60) 05/05/18 05:35 Hgb 14.7 GM/dL (11.7-16.9) 05/05/18 05:35 Hct 44.0 % (35.4-49) 05/05/18 05:35 MCV 94.0 fl (80-96) 05/05/18 05:35 MCH 31.3 pg (25.7-33.7) 05/05/18 05:35 MCHC 33.3 g/dl (32.0-35.9) 05/05/18 05:35 RDW 13.0 % (11.9-15.9) 05/05/18 05:35 Plt Count 265 K/MM3 (134-434) 05/05/18 05:35 MPV 9.5 fl (7.5-11.1) 05/05/18 05:35 Sodium 139 mmol/L (136-145) 05/05/18 05:35 Potassium 4.2 mmol/L (3.5-5.1) 05/05/18 05:35 Chloride 106 mmol/L (98-107) 05/05/18 05:35 Carbon Dioxide 28 mmol/L (21-32) 05/05/18 05:35 Anion Gap 6 MMOL/L (8-16) L 05/05/18 05:35 BUN 19 mg/dL (7-18) H 05/05/18 05:35 Creatinine 1.2 mg/dL (0.55-1.3) 05/05/18 05:35 Creat Clearance w eGFR 62.41 (>60) 05/05/18 05:35 Random Glucose 100 mg/dL (74-106) 05/05/18 05:35 Calcium 9.2 mg/dL (8.5-10.1) 05/05/18 05:35 Total Bilirubin 0.4 mg/dL (0.2-1) 05/05/18 05:35 AST 17 U/L (15-37) 05/05/18 05:35 ALT 29 U/L (13-61) 05/05/18 05:35 Alkaline Phosphatase 65 U/L (45-117) 05/05/18 05:35 Total Protein 7.9 g/dl (6.4-8.2) 05/05/18 05:35 Albumin 4.4 g/dl (3.4-5.0) 05/05/18 05:35 RPR Titer Nonreactive (NONREACTIVE) 05/05/18 05:35 HIV 1&2 Antibody Screen Negative 05/04/18 12:00 HIV P24 Antigen Negative 05/04/18 12:00 Assessment: 05/05/18 16:09 withdrawal sx Plan: Continue detox Ensure BID
[2018-05-05] MEDS: LORazepam 1 MG TABLET PO SCH ×2 (17:34→22:50)
[2018-05-05] MEDS: THIAMINE HCL 100 MG TABLET (FP) PO SCH (22:49)
[2018-05-05] MEDS ORDERED: QUEtiapine FUMARATE 100 MG TABLET (FP) PO ONE (22:55)
[2018-05-06] MEDS: LORazepam 1 MG TABLET PO SCH ×2 (06:25→11:01)
[2018-05-06] MEDS: PRENATAL VITAMINS W/ FOLIC ACID TABLET (FP) PO SCH (11:01)
--- NOTE | 2018-05-06 15:39 | PN ---
[facility] CIWA - CIWA Score Nausea/Vomitin-No Nausea/No Vomiting Muscle Tremors: 1-None Visible, but [place] Anxiety: 1-Mildly Anxious Agitation: 1-Slight > Activity Paroxysmal Sweats: 1-Minimal Palms Moist Orientation: 1-Uncertain about Date Tacttile Disturbances: 0-None Auditory Disturbances: 0-None Visual Disturbances: 0-None Headache: 1-Very Mild CIWA-Ar Total Score: 6 S Progress Note (SOAP) Subjective: feeling ok today wants to be seen by a pschiatrist Objective: 05/06/18 15:40 Vital Signs Temperature 97.3 F L 05/06/18 13:13 Pulse Rate 93 H 05/06/18 13:13 Respiratory Rate 18 05/06/18 13:13 Blood Pressure 133/83 05/06/18 13:13 O2 Sat by Pulse Oximetry (%) Laboratory Last Values WBC 5.6 K/mm3 (4.0-10.0) 05/05/18 05:35 RBC 4.69 M/mm3 (4.00-5.60) 05/05/18 05:35 Hgb 14.7 GM/dL (11.7-16.9) 05/05/18 05:35 Hct 44.0 % (35.4-49) 05/05/18 05:35 MCV 94.0 fl (80-96) 05/05/18 05:35 MCH 31.3 pg (25.7-33.7) 05/05/18 05:35 MCHC 33.3 g/dl (32.0-35.9) 05/05/18 05:35 RDW 13.0 % (11.9-15.9) 05/05/18 05:35 Plt Count 265 K/MM3 (134-434) 05/05/18 05:35 MPV 9.5 fl (7.5-11.1) 05/05/18 05:35 Sodium 139 mmol/L (136-145) 05/05/18 05:35 Potassium 4.2 mmol/L (3.5-5.1) 05/05/18 05:35 Chloride 106 mmol/L (98-107) 05/05/18 05:35 Carbon Dioxide 28 mmol/L (21-32) 05/05/18 05:35 Anion Gap 6 MMOL/L (8-16) L 05/05/18 05:35 BUN 19 mg/dL (7-18) H 05/05/18 05:35 Creatinine 1.2 mg/dL (0.55-1.3) 05/05/18 05:35 Creat Clearance w eGFR 62.41 (>60) 05/05/18 05:35 Random Glucose 100 mg/dL (74-106) 05/05/18 05:35 Calcium 9.2 mg/dL (8.5-10.1) 05/05/18 05:35 Total Bilirubin 0.4 mg/dL (0.2-1) 05/05/18 05:35 AST 17 U/L (15-37) 05/05/18 05:35 ALT 29 U/L (13-61) 05/05/18 05:35 Alkaline Phosphatase 65 U/L (45-117) 05/05/18 05:35 Total Protein 7.9 g/dl (6.4-8.2) 05/05/18 05:35 Albumin 4.4 g/dl (3.4-5.0) 05/05/18 05:35 RPR Titer Nonreactive (NONREACTIVE) 05/05/18 05:35 HIV 1&2 Antibody Screen Negative 05/04/18 12:00 HIV P24 Antigen Negative 05/04/18 12:00 lab noted Assessment: 05/06/18 15:40 mild withdrawal sx Plan: continue detox
[2018-05-06] MEDS ORDERED: LORazepam 0.5 MG TABLET PO PRN (17:00)
[2018-05-06] MEDS: LORazepam 0.5 MG TABLET PO SCH ×2 (17:09→22:29)
[2018-05-06] MEDS: THIAMINE HCL 100 MG TABLET (FP) PO SCH (22:29)
[2018-05-06] MEDS ORDERED: QUEtiapine FUMARATE 50 MG TABLET PO ONE (22:35)
--- NOTE | 2018-05-06 22:40 | PN ---
[facility] Progress Note Note: Patient with medical history of depression is requesting for antidepressant medications. Vital Signs Temperature 97.6 F 05/06/18 21:32 Pulse Rate 84 05/06/18 21:32 Respiratory Rate 18 05/06/18 21:32 Blood Pressure 142/78 05/06/18 21:32 O2 Sat by Pulse Oximetry (%) Action: Seroquel 50mg tablet 1 tablet oral ordered stat Psych. consult initiated
[2018-05-07] MEDS: LORazepam 0.5 MG TABLET PO SCH ×3 (05:47→17:13)
[2018-05-07] MEDS: PRENATAL VITAMINS W/ FOLIC ACID TABLET (FP) PO SCH (10:26)
[2018-05-07] MEDS ORDERED: PANTOPRAZOLE 40 MG TABLET (FP) PO SCH ×2 (10:30→18:30)
--- NOTE | 2018-05-07 14:25 | PN ---
[facility] Progress Note (SOAP) Subjective: Interrupted sleep, Body Aches, Constipation. Objective: PATIENT A & O X 3, OBSERVED AMBULATING ON UNIT. IN NO ACUTE DISTRESS. 05/07/18 14:24 Vital Signs Temperature 96.8 F L 05/07/18 13:04 Pulse Rate 101 H 05/07/18 13:04 Respiratory Rate 18 05/07/18 13:04 Blood Pressure 122/80 05/07/18 13:04 O2 Sat by Pulse Oximetry (%) Laboratory Tests 05/04/18 05/05/18 05/05/18 12:00 05:35 05:35 WBC 5.6 RBC 4.69 Hgb 14.7 Hct 44.0 MCV 94.0 MCH 31.3 MCHC 33.3 RDW 13.0 Plt Count 265 MPV 9.5 Sodium 139 Potassium 4.2 Chloride 106 Carbon Dioxide 28 Anion Gap 6 L BUN 19 H Creatinine 1.2 Creat Clearance w eGFR 62.41 Random Glucose 100 Calcium 9.2 Total Bilirubin 0.4 AST 17 ALT 29 Alkaline Phosphatase 65 Total Protein 7.9 Albumin 4.4 RPR Titer HIV 1&2 Antibody Screen Negative HIV P24 Antigen Negative 05/05/18 05:35 WBC RBC Hgb Hct MCV MCH MCHC RDW Plt Count MPV Sodium Potassium Chloride Carbon Dioxide Anion Gap BUN Creatinine Creat Clearance w eGFR Random Glucose Calcium Total Bilirubin AST ALT Alkaline Phosphatase Total Protein Albumin RPR Titer Nonreactive HIV 1&2 Antibody Screen HIV P24 Antigen LABS NOTED. Assessment: 05/07/18 14:25 WITHDRAWAL SYMPTOMS. Plan: CONTINUE DETOX. INCREASE DAILY PO FLUID INTAKE. PRN MOM FOR CONSTIPATION. PATIENT SCHEDULED FOR D/C TOMORROW.
--- NOTE | 2018-05-07 15:32 | PN ---
Psychiatric Progress Note Vital Signs: Vital Signs Period Temp Pulse Resp BP Sys/Arevalo Pulse Ox Last 24 Hr 96.4 F-98.5 F 73-101 18-18 113-142/61-80 Date of Session: 05/07/18 Chief Complaint:: " I need my seroquel. It keeps me calm. I don't sleep at night ". HPI: Called to address this patient's complaint of refractory insomnia + dysphoria. Mr Jack argues that " seroquel and abilify were my medications for months, prescribed by my primary care doctor ". Wants to get back on these formulations. Hospital course is, otherwise, unremarkable. Detoxification is well tolerated. Steady gait. ROS: Patient is ambulatory, friendly on approach, well-related and cognitively intact. Current Medications: Active Medications Generic Name Dose Route Start Last Admin Trade Name Freq PRN Reason Stop Dose Admin Al Hydroxide/Mg Hydroxide 30 ml 05/04/18 11:31 Mylanta Oral Suspension - PO Q6H PRN DYSPEPSIA Eucalyptus/Menthol/Phenol/Sorbitol 1 each 05/04/18 11:31 Cepastat Lozenge - MM 05/10/18 11:31 Q4H PRN SORE THROAT Lorazepam 0.5 mg 05/06/18 17:00 05/07/18 10:26 Ativan - PO 05/07/18 17:01 0.5 mg Q6H PHIL Administration Lorazepam 0.5 mg 05/06/18 17:00 Ativan - PO 05/07/18 17:00 Q4H PRN Symptoms of Withdrawal Magnesium Citrate 300 ml 05/04/18 11:31 Citroma - PO Q48H PRN CONSTIPATION Magnesium Hydroxide 30 ml 05/04/18 11:31 Milk Of Magnesia - PO PRN PRN CONSTIPATION Melatonin 5 mg 05/04/18 11:31 Melatonin PO HS PRN INSOMNIA Methocarbamol 500 mg 05/04/18 11:31 05/05/18 11:11 Robaxin - PO 05/10/18 11:31 500 mg Q6H PRN Administration MUSCLE SPASMS Nicotine Polacrilex 2 mg 05/04/18 11:31 Nicorette Gum - BUC Q2H PRN NICOTINE REPLACEMENT RX Pantoprazole Sodium 40 mg 05/07/18 18:30 Protonix - PO DAILY@1830 PHIL Multivit/Folic Acid/Iron 1 tab 05/05/18 10:00 05/07/18 10:26 Vitamins (Sjr) - PO 1 tab DAILY PHIL Administration Thiamine HCl 100 mg 05/04/18 22:00 05/06/18 22:29 Vitamin B1 - PO 100 mg HS PHIL Administration Medication(s) Change(s): Added to the regimen : seroquel 100 mg po hs + abilify 5 mg po daily. Side effects/benefits discussed with patient. Made aware of the risks of oversedation, accidental falls due to drowsiness, metabolic syndrome and cardiovascular adverse events. Mr Santiago denies any history of negative incidents while on seroquel and he insists on the addition of the drug to his current regimen. Pharmacy claims of 04/24/18 (provider Brynn), at [facility], are reviewed. Medications confirmed. Current Side Effect: No Lab tests ordered: No Lab tests reviewed: Yes Provider note:: Request for re-consult : aknowledged. Chart reviewed. Met with the patient at bedside. Mr Santiago is found awake, relaxed, conversant and well- related. Complains of insomnia and moderate anxiety. " I did not get my seroquel since my admission here, that's why ". Reassurance provided. Side effects/benefits of seroquel discussed in this session. Sleep hygiene principles are revisited as well. Patient responed positively to intervention. Stable mental status. Total face to face time:: 25 Mental Status Exam - Mental Status Exam Alert and Oriented to: Time, Place, Person Cognitive Function: Good Patient Appearance: Well Groomed (wearing dark eyeglasses) Mood: Anxious, Apprehensive Affect: Appropriate, Normal Range Patient Behavior: Fatigued, Cooperative Speech Pattern: Clear, Appropriate Voice Loudness: Normal Thought Process: Goal Oriented Thought Disorder: Not Present Hallucinations: Denies Suicidal Ideation: Denies Homicidal Ideation: Denies Insight/Judgement: Poor Sleep: Poorly, Difficulty falling asleep Appetite: Good Gait/Station: Normal (observed walking independently; patient uses cane infrequently) Psychiatric Treatment Plan - Problem List (1) Insomnia Current Visit: Yes Comment: . (2) Alcohol dependence with uncomplicated withdrawal Current Visit: Yes Comment: . (3) Cocaine dependence Current Visit: Yes Comment: . (4) Nicotine dependence Current Visit: Yes Qualifiers: Nicotine product type: cigarettes Substance use status: uncomplicated Qualified Code(s): F17.210 - Nicotine dependence, cigarettes, uncomplicated Comment: . (5) Substance induced mood disorder Current Visit: Yes Comment: . (6) History of bipolar disorder Current Visit: Yes Comment: . (7) Non-compliant patient Current Visit: Yes Comment: .
[2018-05-07] MEDS ORDERED: QUEtiapine FUMARATE 100 MG TABLET (FP) PO SCH (22:00)
[2018-05-07] MEDS: THIAMINE HCL 100 MG TABLET (FP) PO SCH (22:14)
[2018-05-08 09:19] VITALS: BP 114/69; PULSE 87; TEMP 97
[2018-05-08] MEDS ORDERED: ARIPiprazole 5 MG TABLET (FP) PO SCH (10:00)
[2018-05-08] MEDS: PRENATAL VITAMINS W/ FOLIC ACID TABLET (FP) PO SCH (10:17)
--- NOTE | 2018-05-08 13:01 | DS ---
[facility] Detox Discharge Summary Admission Date: 05/04/18 Discharge Date: 05/08/18 - History Present History: Alcohol Dependence, Cocaine Dependence Additional Comments: PATIENT GOING TO [facility] FOR AFTERCARE. PATIENT WAS DISCHARGED FROM DETOX UNIT TO BE TAKEN OVER TO REHAB UNIT IN STABLE MEDICAL CONDITION. Pertinent Past History: Hypercholesterolemia, History of Anemia, Asthma, Hep B, Depression, History of Bipolar Disorder, Insomnia. - Physical Exam Results Vital Signs: Vital Signs Temperature 97.0 F L 05/08/18 09:18 Pulse Rate 87 05/08/18 09:18 Respiratory Rate 18 05/08/18 09:18 Blood Pressure 114/69 05/08/18 09:18 O2 Sat by Pulse Oximetry (%) Pertinent Admission Physical Exam Findings: WITHDRAWAL SYMPTOMS. Laboratory Tests 05/04/18 05/05/18 05/05/18 12:00 05:35 05:35 WBC 5.6 RBC 4.69 Hgb 14.7 Hct 44.0 MCV 94.0 MCH 31.3 MCHC 33.3 RDW 13.0 Plt Count 265 MPV 9.5 Sodium 139 Potassium 4.2 Chloride 106 Carbon Dioxide 28 Anion Gap 6 L BUN 19 H Creatinine 1.2 Creat Clearance w eGFR 62.41 Random Glucose 100 Calcium 9.2 Total Bilirubin 0.4 AST 17 ALT 29 Alkaline Phosphatase 65 Total Protein 7.9 Albumin 4.4 RPR Titer HIV 1&2 Antibody Screen Negative HIV P24 Antigen Negative 05/05/18 05:35 WBC RBC Hgb Hct MCV MCH MCHC RDW Plt Count MPV Sodium Potassium Chloride Carbon Dioxide Anion Gap BUN Creatinine Creat Clearance w eGFR Random Glucose Calcium Total Bilirubin AST ALT Alkaline Phosphatase Total Protein Albumin RPR Titer Nonreactive HIV 1&2 Antibody Screen HIV P24 Antigen LABS NOTED. - Treatment Hospital Course: Detox Protocol Followed, Detoxed Safely, Responded well, Discharged Condition Good, Rehab Referral Accepted Patient has Accepted a Rehab Referral to: [facility] ([facility] - Medication Discharge Medications: Ambulatory Orders Albuterol Sulfate Inhaler - [Ventolin HFA Inhaler -] 2 inh IH Q4H PRN #1 cartridge 04/04/14 Quetiapine Fumarate [Seroquel -] 50 mg PO BID 09/27/17 Quetiapine Fumarate [Seroquel] 100 mg PO HS #30 tablet 12/16/17 Aripiprazole 10 mg PO DAILY 05/04/18 - Diagnosis (1) Alcohol dependence with uncomplicated withdrawal Status: Acute (2) Cocaine dependence Status: Chronic (3) Nicotine dependence Status: Chronic Qualifiers: Nicotine product type: cigarettes Substance use status: uncomplicated Qualified Code(s): F17.210 - Nicotine dependence, cigarettes, uncomplicated (4) Insomnia Status: Acute Qualifiers: Insomnia type: unspecified Qualified Code(s): G47.00 - Insomnia, unspecified (5) History of bipolar disorder Status: Chronic (6) Non-compliant patient Status: Chronic (7) Substance induced mood disorder Status: Chronic - AMA Did Patient Leave Against Medical Advice: No
== END 2018-05-08 10:58 | disposition other institution (70) | DRG 774 ==
LOC: YASAS 08:42 → Y3N 12:05
PROVIDERS: ADMIT Surgery; ATTEND Surgery
PROC: HZ2ZZZZ Detoxification Services for Substance Abuse Treatment (ICD-10-PCS; principal; 2018-05-04)
DX: F10.230 Alcohol dependence with withdrawal, uncomplicated (principal); F14.20 Cocaine dependence, uncomplicated; F17.210 Nicotine dependence, cigarettes, uncomplicated; F19.24 Other psychoactive substance dependence with psychoactive substance-induced mood disorder; G47.00 Insomnia, unspecified; K59.00 Constipation, unspecified; N40.0 Benign prostatic hyperplasia without lower urinary tract symptoms; Z86.59 Personal history of other mental and behavioral disorders; Z86.19 Personal history of other infectious and parasitic diseases; Z91.19 Patient's noncompliance with other medical treatment and regimen; Z88.8 Allergy status to other drugs, medicaments and biological substances; Z91.018 Allergy to other foods
CPT/HCPCS: 36415; 80053; 85027; 86593; 87389

== ENCOUNTER 2018-05-08 11:15 | Inpatient (IN) | payer OTHER ==
--- NOTE | 2018-05-08 13:14 | PN ---
DAVID Progress Note Note: Psychiatric nurse practitioer note: Patient transferred to 3. Patient seen in detox by Dr. Arana. Dr. Arana note read and appreciated. Will continue Abilify 5mg + Seroquel 100mg HS.
--- NOTE | 2018-05-08 13:14 | HP ---
[facility] Rehab Assess/Revision - Admission History Admitted to Rehab from: [facility] Date of Admission to Rehab: 05/08/2018 - Vital signs Vital Signs: NOTED; STABLE. - Findings Detox History & Physical reviewed: Yes Concur with findings: Yes Comments/Additional Findings: PATIENT'S MEDICAL / MEDICATION HISTORY REVIEWED PRIOR TO DISCHARGE FROM DETOX UNIT. PATIENT WAS DISCHARGED FROM DETOX UNIT TO BE TAKEN OVER TO REHAB UNIT IN STABLE MEDICAL CONDITION. Inpatient Rehab Admission - Rehab Decision to Admit Inpatient rehab admission?: Yes - Initial Determination Are CD services needed?: Yes Free of communicable disease: Yes Not in need of hospitalization: Yes - Rehab Admission Criteria Previous failed treatment: Yes Poor recovery environment: Yes Comorbidities: Yes Lacks judgement: No Patient is meeting Inpatient Rehab admission criteria:: Yes
[2018-05-08] MEDS ORDERED: MAGNESIUM HYDROX 2400MG/30ML ORAL SUSPENSION 30 ML CUP PO PRN (13:15)
[2018-05-08] MEDS ORDERED: ACETAMINOPHEN 325 MG TABLET (FP) PO PRN (13:15)
[2018-05-08] MEDS ORDERED: MAGNESIUM CITRATE 300 ML BOTTLE PO PRN (13:15)
[2018-05-08] MEDS ORDERED: P-EPHED 60MG/TRIPROLIDI 2.5MG TABLET PO PRN (13:15)
[2018-05-08] MEDS ORDERED: MENTHOL/PHENOL 1 EACH UD MM PRN (13:15)
[2018-05-08] MEDS ORDERED: LOPERAMIDE HCL 2 MG CAPSULE PO PRN (13:15)
[2018-05-08] MEDS ORDERED: NICOTINE POLACRILEX 2 MG GUM BUC PRN (13:15)
[2018-05-08] MEDS ORDERED: MAG HYDROX/AL HYDROX/SIMETH 30 ML UNIT-DOSE CUP PO PRN (13:15)
[2018-05-08] MEDS ORDERED: guaiFENesin 200 MG/10 ML 10 ML UNIT-DOSE CUPS PO PRN (13:15)
[2018-05-08] MEDS ORDERED: ALBUTEROL SO4 8 GM HFA INHALER IH PRN (13:16)
[2018-05-08] MEDS ORDERED: PANTOPRAZOLE 40 MG TABLET (FP) PO SCH ×2 (17:15→18:30)
--- NOTE | 2018-05-08 17:29 | PN ---
S Progress Note Note: nurse called, pt requesting Protonix @ 8 pm instead of 6:30 pm. Order placed
[2018-05-08] MEDS: THIAMINE HCL 100 MG TABLET (FP) PO SCH (21:49)
[2018-05-08] MEDS: PANTOPRAZOLE 40 MG TABLET (FP) PO SCH (21:50)
[2018-05-08] MEDS: QUEtiapine FUMARATE 100 MG TABLET (FP) PO SCH (21:50)
[2018-05-08] MEDS ORDERED: MELATONIN 5 MG TABLETS PO PRN (22:00)
[2018-05-09] MEDS: PRENATAL VITAMINS W/ FOLIC ACID TABLET (FP) PO SCH (10:29)
[2018-05-09] MEDS: ARIPiprazole 10 MG TABLET PO SCH (10:29)
[2018-05-09] MEDS: THIAMINE HCL 100 MG TABLET (FP) PO SCH (21:35)
[2018-05-09] MEDS: PANTOPRAZOLE 40 MG TABLET (FP) PO SCH (21:35)
[2018-05-09] MEDS: QUEtiapine FUMARATE 100 MG TABLET (FP) PO SCH (21:35)
[2018-05-10] MEDS: PRENATAL VITAMINS W/ FOLIC ACID TABLET (FP) PO SCH (10:06)
[2018-05-10] MEDS: ARIPiprazole 10 MG TABLET PO SCH (10:07)
[2018-05-10] MEDS: PANTOPRAZOLE 40 MG TABLET (FP) PO SCH (21:24)
[2018-05-10] MEDS: QUEtiapine FUMARATE 100 MG TABLET (FP) PO SCH (21:24)
[2018-05-10] MEDS: THIAMINE HCL 100 MG TABLET (FP) PO SCH (21:25)
[2018-05-11] MEDS: PRENATAL VITAMINS W/ FOLIC ACID TABLET (FP) PO SCH (09:49)
[2018-05-11] MEDS: ARIPiprazole 10 MG TABLET PO SCH (09:49)
[2018-05-11] MEDS ORDERED: QUEtiapine FUMARATE 50 MG TABLET ONE (20:12)
[2018-05-11] MEDS: THIAMINE HCL 100 MG TABLET (FP) PO SCH (21:30)
[2018-05-11] MEDS: QUEtiapine FUMARATE 100 MG TABLET (FP) PO SCH (21:30)
[2018-05-11] MEDS: PANTOPRAZOLE 40 MG TABLET (FP) PO SCH (21:31)
[2018-05-12] MEDS: ARIPiprazole 5 MG TABLET (FP) PO SCH (09:53)
[2018-05-12] MEDS: PRENATAL VITAMINS W/ FOLIC ACID TABLET (FP) PO SCH (09:53)
[2018-05-12] MEDS: THIAMINE HCL 100 MG TABLET (FP) PO SCH (21:10)
[2018-05-12] MEDS: QUEtiapine FUMARATE 100 MG TABLET (FP) PO SCH (21:11)
[2018-05-12] MEDS: PANTOPRAZOLE 40 MG TABLET (FP) PO SCH (21:11)
[2018-05-13] MEDS: ARIPiprazole 5 MG TABLET (FP) PO SCH (09:39)
[2018-05-13] MEDS: PRENATAL VITAMINS W/ FOLIC ACID TABLET (FP) PO SCH (09:39)
[2018-05-13] MEDS ORDERED: QUEtiapine FUMARATE 50 MG TABLET ONE (19:57)
[2018-05-13] MEDS: PANTOPRAZOLE 40 MG TABLET (FP) PO SCH (21:04)
[2018-05-13] MEDS: THIAMINE HCL 100 MG TABLET (FP) PO SCH (21:04)
[2018-05-13] MEDS: QUEtiapine FUMARATE 100 MG TABLET (FP) PO SCH (21:05)
[2018-05-14 07:06] VITALS: BP 109/76; PULSE 74; TEMP 97.9
[2018-05-14] MEDS ORDERED: PT OWN MED DRAWER 7, Y5N ONE (09:36)
[2018-05-14] MEDS: PRENATAL VITAMINS W/ FOLIC ACID TABLET (FP) PO SCH (10:29)
[2018-05-14] MEDS: ARIPiprazole 5 MG TABLET (FP) PO SCH (10:41)
--- NOTE | 2018-05-14 15:11 | PN ---
[facility] Progress Note Note: Notified by RN that patient requested to sign out AMA. Patient evaluated by sql report writer and stated " I have to go before I lose my apartment." Patient encouraged to complete rehab and explained risk factors of relapse with signing out AMA. Patient refused to stay in treatment despite encouragement. Patient is medically stable and denies SI/HI. Discharge instructions provided to patient by nursing staff. Vital Signs Temperature 97.9 F 05/14/18 07:05 Pulse Rate 74 05/14/18 07:05 Respiratory Rate 18 05/14/18 07:05 Blood Pressure 109/76 05/14/18 07:05 O2 Sat by Pulse Oximetry (%) Home Medications Medication Instructions Recorded Albuterol Sulfate Inhaler - 2 inh IH Q4H PRN #1 cartridge 04/04/14 [Ventolin HFA Inhaler -] Quetiapine Fumarate [Seroquel -] 50 mg PO BID 09/27/17 Quetiapine Fumarate [Seroquel] 100 mg PO HS #30 tablet 12/16/17 Aripiprazole 10 mg PO DAILY 05/04/18
== END 2018-05-14 15:20 | disposition left against medical advice (07) | DRG 770 ==
LOC: YASAS 11:15 → Y3W 11:16
PROVIDERS: ADMIT Neuromusculoskeletal Medicine & OMM; ATTEND Neuromusculoskeletal Medicine & OMM
PROC: HZ42ZZZ Group Counseling for Substance Abuse Treatment, Cognitive-Behavioral (ICD-10-PCS; principal; 2018-05-08)
DX: F10.20 Alcohol dependence, uncomplicated (principal); F17.210 Nicotine dependence, cigarettes, uncomplicated; F31.9 Bipolar disorder, unspecified

== ENCOUNTER 2018-11-02 09:11 | Inpatient (IN) | payer OTHER ==
[2018-11-02 09:22] VITALS: BMI 23.6
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
[2018-11-02] MEDS ORDERED: MAG HYDROX/AL HYDROX/SIMETH 30 ML UNIT-DOSE CUP PO PRN (10:02)
[2018-11-02] MEDS ORDERED: BISMUTH SUBSALICYLATE 262 MG/15 ML BTL PO PRN (10:02)
[2018-11-02] MEDS ORDERED: ACETAMINOPHEN 325 MG TABLET (FP) PO PRN ×2 (10:02)
[2018-11-02] MEDS ORDERED: MENTHOL/PHENOL 1 EACH UD MM PRN (10:02)
[2018-11-02] MEDS ORDERED: hydrOXYzine PAMOATE 25 MG CAPSULE (FP) PO PRN (10:02)
[2018-11-02] MEDS ORDERED: diazePAM 5 MG TABLET PO ONE (10:02)
[2018-11-02] MEDS ORDERED: MELATONIN 5 MG TABLETS PO PRN (10:02)
[2018-11-02] MEDS ORDERED: diazePAM 5 MG TABLET PO PRN (10:02)
[2018-11-02] MEDS ORDERED: METHOCARBAMOL 500 MG TABLET PO PRN (10:02)
[2018-11-02] MEDS ORDERED: MAGNESIUM CITRATE 300 ML BOTTLE PO PRN (10:02)
[2018-11-02] MEDS ORDERED: MAGNESIUM HYDROX 2400MG/30ML ORAL SUSPENSION 30 ML CUP PO PRN (10:02)
[2018-11-02] MEDS ORDERED: IBUPROFEN 400 MG TABLET (FP) PO PRN (10:02)
[2018-11-02] MEDS ORDERED: ALBUTEROL SO4 8 GM HFA INHALER IH PRN (10:04)
--- NOTE | 2018-11-02 10:13 | PN ---
Teaching Attending Note Name of Resident: Javier Donato ATTENDING PHYSICIAN STATEMENT I saw and evaluated the patient. I reviewed the resident's note and discussed the case with the resident. I agree with the resident's findings and plan as documented. SUBJECTIVE: this 58 years old male with alcohol and cocaine dependence seeking detox,has previous admission before,denied seizure,had syncope OBJECTIVE: withdrawal signs and symptom ASSESSMENT AND PLAN: this patient need inpatient detox for alcohol and cocaine,medically managed, valium regimen,plan for rehab after detox
[2018-11-02 12:10] LABS: HEMATOCRIT 46.2 % (35.4-49); HEMOGLOBIN 15.7 GM/dL (11.7-16.9); MCH 32.4 pg (25.7-33.7); MCHC 34.1 g/dl (32.0-35.9); MEAN PLT VOLUME 8.9 fl (7.5-11.1); PLATELET COUNT 260 K/MM3 (134-434); RBC 4.86 M/mm3 (4.00-5.60); RDW 12.5 % (11.9-15.9); WHITE BLOOD COUNT 6.1 K/mm3 (4.0-10.0)
[2018-11-02 12:28] LABS: ALBUMIN 4.3 g/dl (3.4-5.0); BILIRUBIN,TOTAL 0.9 mg/dL (0.2-1); BLOOD UREA NITROGEN 16.3 mg/dL (7-18); CALCIUM 9.2 mg/dL (8.5-10.1); CREATININE 1.2 mg/dL (0.55-1.3); POTASSIUM 4.2 mmol/L (3.5-5.1); TOT PROT 7.9 g/dl (6.4-8.2)
[2018-11-02] MEDS: diazePAM 5 MG TABLET PO SCH ×2 (13:21→22:16)
--- NOTE | 2018-11-02 15:25 | CONSULT ---
[facility] Psychiatric Consult - Data Date of interview: 11/02/18 Admission source: [facility] Identifying data: Readmission to [facility] for this 58 y/o AA male self- referred for detoxification (alcohol, cocaine). Examined at [address] [place] [address]. Patient is single, father of two (claimed more than 40 dependents at a previous encounter) , domiciled, unemployed and reportedly deprived of any source of income. Substance Abuse History: Discussed in this session. Details in current [facility] report as follows : Smoking history: Current some day smoker. Have you smoked in the past 12 months: Yes. Aproximately how many cigarettes per day: 4. Cigars Per Day: 0. Hx Chewing Tobacco Use: No. Initiated information on smoking cessation: Yes. 'Breaking Loose' booklet given: 11/02/18. - Substances abused. Alcohol. Substance route: Oral. Frequency: Daily. Amount used: 8-10cans beers. Age of first use: 13. Date of last use: . Cocaine. Substance route: Inhalation. Frequency: 3-6 times per week. Amount used: $40. Age of first use: 31. Date of last use: 10/31/18 Medical History: Medical profile is remarkable for a history of hypertension, GERD, benign prostatic hyperplasia, bronchial asthma, past treatment for gonorrhea, hepatitis B, anemia, hypercholesterolemia and orthosurgery (fracture of mandible) in 1985/1986 + excision of lymph node (left side of neck). Psychiatric History: Patient continues to deny history of psychiatric hospitalizations. " I get psychiatric care when I am in penitentiary." However, existing records at [facility] reveal history of multiple psychiatric admissions to various facilities ([facility], [facility], [facility], [facility]). Mr Santiago has been diagnosed with Bipolar Disorder, MDD and Anxiety Disorder. Presents with a chronic pattern of non-adherence to OPD care (usually gets scripts from his primary care physician). with OPD care providers. History of sporadic psychiatric follow-up at the [facility] ([address] Medicated in the past with seroquel + aripriprazole. Patient denies history of suicide attempts. Physical/Sexual Abuse/Trauma History: Patient denies history of sexual abuse. Served in the [email or web address] ([phone]). No involvement in combat operations. Honorably discharged (self-report). No veterans benefits. Additional Comment: Urine drug screen results: ARLENE-Cocaine. Noted. Mental Status Exam - Mental Status Exam Alert and Oriented to: Time, Place, Person Cognitive Function: Grossly Intact Patient Appearance: Well Groomed Mood: Withdrawn Affect: Appropriate, Normal Range Patient Behavior: Cooperative Speech Pattern: Clear Voice Loudness: Normal Thought Process: Goal Oriented Thought Disorder: Not Present Hallucinations: Denies Suicidal Ideation: Denies Homicidal Ideation: Denies Insight/Judgement: Poor Sleep: Poorly, Difficulty falling asleep Appetite: Good Muscle strength/Tone: Normal Gait/Station: Other (not observed; supine for entire interview) Psychiatric Findings - Problem List ([place] 1, 2,3) (1) Alcohol dependence with uncomplicated withdrawal Current Visit: Yes Status: Acute Comment: . (2) Cocaine dependence Current Visit: Yes Status: Chronic (3) Nicotine dependence Current Visit: Yes Status: Chronic Qualifiers: Nicotine product type: cigarettes Substance use status: uncomplicated Qualified Code(s): F17.210 - Nicotine dependence, cigarettes, uncomplicated Comment: . (4) Substance induced mood disorder Current Visit: Yes Status: Chronic Comment: . (5) Insomnia Current Visit: Yes Status: Chronic Qualifiers: Insomnia type: unspecified Qualified Code(s): G47.00 - Insomnia, unspecified (6) History of bipolar disorder Current Visit: Yes Status: Chronic (7) Non-compliant patient Current Visit: Yes Status: Chronic Comment: . - Initial Treatment Plan Initial Treatment Plan: Psychoeducation. Sleep hygiene. Detoxification. AA meetings. Seroquel 100 mg po hs. Side effects/benefits are discussed with the patient. Mr Santiago gave verbal consent for this plan of care. Observation.
[2018-11-02] MEDS: THIAMINE HCL 100 MG TABLET (FP) PO SCH (22:16)
[2018-11-02] MEDS: QUEtiapine FUMARATE 100 MG TABLET (FP) PO SCH (22:16)
[2018-11-03] MEDS: diazePAM 5 MG TABLET PO SCH ×3 (05:54→22:07)
[2018-11-03] MEDS: PRENATAL VITAMINS W/ FOLIC ACID TABLET (FP) PO SCH (10:13)
[2018-11-03] MEDS: LIDOCAINE 5% TOPICAL PATCH TP SCH (10:45)
--- NOTE | 2018-11-03 15:06 | PN ---
S CIWA - CIWA Score Nausea/Vomitin-No Nausea/No Vomiting Muscle Tremors: 4-Moderate,w/Arms Extend Anxiety: 4-Mod. Anxious/Guarded Agitation: 3 Paroxysmal Sweats: No Perspiration Orientation: 2-Disoriented Date<2 days Tacttile Disturbances: 0-None Auditory Disturbances: 0-None Visual Disturbances: 2-Mild Sensitivity Headache: 0-None Present CIWA-Ar Total Score: 15 BHS Progress Note (SOAP) Subjective: Anxious, Tremors, Body Aches. Objective: PATIENT A & O X 2 (UNCERTAIN ABOUT CURRENT DAY/ DATE). PATIENT OBSERVED AMBULATING ON DETOX UNIT UNASSISTED. IN NO ACUTE DISTRESS. 11/03/18 15:05 Vital Signs Temperature 97.8 F 11/03/18 13:15 Pulse Rate 78 11/03/18 13:15 Respiratory Rate 18 11/03/18 13:15 Blood Pressure 108/71 11/03/18 13:15 O2 Sat by Pulse Oximetry (%) Laboratory Tests 11/02/18 11/02/18 11/02/18 10:00 10:00 10:00 WBC 6.1 RBC 4.86 Hgb 15.7 Hct 46.2 MCV 95.0 MCH 32.4 MCHC 34.1 RDW 12.5 Plt Count 260 MPV 8.9 Sodium 141 Potassium 4.2 Chloride 105 Carbon Dioxide 30 Anion Gap 6 L BUN 16.3 Creatinine 1.2 Est GFR (CKD-EPI)AfAm 77.33 Est GFR (CKD-EPI)NonAf 66.72 Random Glucose 79 Calcium 9.2 Total Bilirubin 0.9 AST 9 L ALT 24 Alkaline Phosphatase 55 Total Protein 7.9 Albumin 4.3 RPR Titer Nonreactive labs noted. Assessment: 11/03/18 15:05 WITHDRAWAL SYMPTOMS. Plan: CONTINUE DETOX. LIDODERM PATCHES FOR BILATERAL KNEE PAIN.
[2018-11-03] MEDS: QUEtiapine FUMARATE 100 MG TABLET (FP) PO SCH (22:07)
[2018-11-03] MEDS: THIAMINE HCL 100 MG TABLET (FP) PO SCH (22:07)
[2018-11-03] MEDS: LIDOCAINE PATCH REMOVAL MC SCH (22:08)
[2018-11-04] MEDS: diazePAM 5 MG TABLET PO SCH ×2 (06:57→18:52)
[2018-11-04] MEDS: PRENATAL VITAMINS W/ FOLIC ACID TABLET (FP) PO SCH (10:08)
[2018-11-04] MEDS: LIDOCAINE 5% TOPICAL PATCH TP SCH (10:08)
--- NOTE | 2018-11-04 10:46 | PN ---
[facility] CIWA - CIWA Score Nausea/Vomitin-Mild Nausea/No Vomiting Muscle Tremors: 2 Anxiety: 2 Agitation: 2 Paroxysmal Sweats: 1-Minimal Palms Moist Orientation: 1-Uncertain about Date (date of week) Tacttile Disturbances: 1-Very Mild Itch/Numbness Auditory Disturbances: 0-None Visual Disturbances: 0-None Headache: 1-Very Mild CIWA-Ar Total Score: 11 S Progress Note (SOAP) Subjective: doing well with valium detox regimen no complication through out the detox stay seen by psychiatrist treated with seroquel tolerate well Objective: 11/04/18 10:48 Vital Signs Temperature 95.9 F L 11/04/18 09:36 Pulse Rate 81 11/04/18 09:36 Respiratory Rate 18 11/04/18 09:36 Blood Pressure 128/83 11/04/18 09:36 O2 Sat by Pulse Oximetry (%) Laboratory Last Values WBC 6.1 K/mm3 (4.0-10.0) 11/02/18 10:00 RBC 4.86 M/mm3 (4.00-5.60) 11/02/18 10:00 Hgb 15.7 GM/dL (11.7-16.9) 11/02/18 10:00 Hct 46.2 % (35.4-49) 11/02/18 10:00 MCV 95.0 fl (80-96) 11/02/18 10:00 MCH 32.4 pg (25.7-33.7) 11/02/18 10:00 MCHC 34.1 g/dl (32.0-35.9) 11/02/18 10:00 RDW 12.5 % (11.9-15.9) 11/02/18 10:00 Plt Count 260 K/MM3 (134-434) 11/02/18 10:00 MPV 8.9 fl (7.5-11.1) 11/02/18 10:00 Sodium 141 mmol/L (136-145) 11/02/18 10:00 Potassium 4.2 mmol/L (3.5-5.1) 11/02/18 10:00 Chloride 105 mmol/L (98-107) 11/02/18 10:00 Carbon Dioxide 30 mmol/L (21-32) 11/02/18 10:00 Anion Gap 6 MMOL/L (8-16) L 11/02/18 10:00 BUN 16.3 mg/dL (7-18) 11/02/18 10:00 Creatinine 1.2 mg/dL (0.55-1.3) 11/02/18 10:00 Est GFR (CKD-EPI)AfAm 77.33 11/02/18 10:00 Est GFR (CKD-EPI)NonAf 66.72 11/02/18 10:00 Random Glucose 79 mg/dL (74-106) 11/02/18 10:00 Calcium 9.2 mg/dL (8.5-10.1) 11/02/18 10:00 Total Bilirubin 0.9 mg/dL (0.2-1) 11/02/18 10:00 AST 9 U/L (15-37) L 11/02/18 10:00 ALT 24 U/L (13-61) 11/02/18 10:00 Alkaline Phosphatase 55 U/L (45-117) 11/02/18 10:00 Total Protein 7.9 g/dl (6.4-8.2) 11/02/18 10:00 Albumin 4.3 g/dl (3.4-5.0) 11/02/18 10:00 RPR Titer Nonreactive (NONREACTIVE) 11/02/18 10:00 lab noted Assessment: 11/04/18 10:48 alcohol withdrawal sx Plan: continue valium detox regimen
[2018-11-04] MEDS: THIAMINE HCL 100 MG TABLET (FP) PO SCH (22:17)
[2018-11-04] MEDS: QUEtiapine FUMARATE 100 MG TABLET (FP) PO SCH (22:17)
[2018-11-04] MEDS: LIDOCAINE PATCH REMOVAL MC SCH (22:17)
[2018-11-05] MEDS ORDERED: diazePAM 5 MG TABLET PO ONE (06:00)
[2018-11-05 09:14] VITALS: BP 103/72; PULSE 86; TEMP 98.4
--- NOTE | 2018-11-05 10:22 | DS ---
[facility] Detox Discharge Summary Admission Date: 11/02/18 Discharge Date: 11/05/18 - History Present History: Alcohol Dependence Additional Comments: did well with valium detox regimen alert oriented x 3 ambulating with cane steady gait speech clearly coherently - Physical Exam Results Vital Signs: Vital Signs Temperature 98.4 F 11/05/18 09:13 Pulse Rate 86 11/05/18 09:13 Respiratory Rate 18 11/05/18 09:13 Blood Pressure 103/72 11/05/18 09:13 O2 Sat by Pulse Oximetry (%) Pertinent Admission Physical Exam Findings: alcohol withdrawal sx Laboratory Last Values WBC 6.1 K/mm3 (4.0-10.0) 11/02/18 10:00 RBC 4.86 M/mm3 (4.00-5.60) 11/02/18 10:00 Hgb 15.7 GM/dL (11.7-16.9) 11/02/18 10:00 Hct 46.2 % (35.4-49) 11/02/18 10:00 MCV 95.0 fl (80-96) 11/02/18 10:00 MCH 32.4 pg (25.7-33.7) 11/02/18 10:00 MCHC 34.1 g/dl (32.0-35.9) 11/02/18 10:00 RDW 12.5 % (11.9-15.9) 11/02/18 10:00 Plt Count 260 K/MM3 (134-434) 11/02/18 10:00 MPV 8.9 fl (7.5-11.1) 11/02/18 10:00 Sodium 141 mmol/L (136-145) 11/02/18 10:00 Potassium 4.2 mmol/L (3.5-5.1) 11/02/18 10:00 Chloride 105 mmol/L (98-107) 11/02/18 10:00 Carbon Dioxide 30 mmol/L (21-32) 11/02/18 10:00 Anion Gap 6 MMOL/L (8-16) L 11/02/18 10:00 BUN 16.3 mg/dL (7-18) 11/02/18 10:00 Creatinine 1.2 mg/dL (0.55-1.3) 11/02/18 10:00 Est GFR (CKD-EPI)AfAm 77.33 11/02/18 10:00 Est GFR (CKD-EPI)NonAf 66.72 11/02/18 10:00 Random Glucose 79 mg/dL (74-106) 11/02/18 10:00 Calcium 9.2 mg/dL (8.5-10.1) 11/02/18 10:00 Total Bilirubin 0.9 mg/dL (0.2-1) 11/02/18 10:00 AST 9 U/L (15-37) L 11/02/18 10:00 ALT 24 U/L (13-61) 11/02/18 10:00 Alkaline Phosphatase 55 U/L (45-117) 11/02/18 10:00 Total Protein 7.9 g/dl (6.4-8.2) 11/02/18 10:00 Albumin 4.3 g/dl (3.4-5.0) 11/02/18 10:00 RPR Titer Nonreactive (NONREACTIVE) 11/02/18 10:00 lab noted - Treatment Hospital Course: Detox Protocol Followed, Detoxed Safely, Responded well, Discharged Condition Good, Rehab Referral Accepted Patient [facility] - Medication Discharge Medications: Ambulatory Orders Albuterol Sulfate Inhaler - [Ventolin HFA Inhaler -] 2 inh IH Q4H PRN #1 cartridge 04/04/14 Quetiapine Fumarate [Seroquel -] 50 mg PO DAILY 09/27/17 Quetiapine Fumarate [Seroquel -] 100 mg PO HS #30 tablet 12/16/17 Aripiprazole 10 mg PO DAILY 05/04/18 - Diagnosis (1) Alcohol dependence with uncomplicated withdrawal Current Visit: Yes Status: Acute (2) Nicotine dependence Current Visit: Yes Status: Acute Qualifiers: Nicotine product type: cigarettes Substance use status: in withdrawal Qualified Code(s): F17.213 - Nicotine dependence, cigarettes, with withdrawal (3) Substance induced mood disorder Current Visit: Yes Status: Suspected (4) Ambulates with cane Current Visit: Yes Status: Chronic (5) Asthma Current Visit: Yes Status: Chronic (6) BPH (benign prostatic hyperplasia) Current Visit: Yes Status: Chronic (7) Nicotine dependence Current Visit: Yes Status: Acute Qualifiers: Nicotine product type: cigarettes Substance use status: in withdrawal Qualified Code(s): F17.213 - Nicotine dependence, cigarettes, with withdrawal (8) PPD positive, treated Current Visit: Yes Status: Resolved - AMA Did Patient Leave Against Medical Advice: No CIWA Score - CIWA Score Nausea/Vomitin-No Nausea/No Vomiting Muscle Tremors: 1-None Visible, but [place] Anxiety: 1-Mildly Anxious Agitation: 1-Slight > Activity Paroxysmal Sweats: 1-Minimal Palms Moist Orientation: 0-Oriented (date of week) Tacttile Disturbances: 1-Very Mild Itch/Numbness Auditory Disturbances: 0-None Visual Disturbances: 0-None Headache: 1-Very Mild CIWA-Ar Total Score: 6
[2018-11-05] MEDS: PRENATAL VITAMINS W/ FOLIC ACID TABLET (FP) PO SCH (10:31)
[2018-11-05] MEDS: LIDOCAINE 5% TOPICAL PATCH TP SCH (10:31)
== END 2018-11-05 12:45 | disposition other institution (70) | DRG 774 ==
LOC: YASAS 09:11 → Y3N 10:17
PROVIDERS: ADMIT Surgery; ATTEND Surgery
PROC: HZ2ZZZZ Detoxification Services for Substance Abuse Treatment (ICD-10-PCS; principal; 2018-11-02)
DX: F10.230 Alcohol dependence with withdrawal, uncomplicated (principal); F14.20 Cocaine dependence, uncomplicated; F17.213 Nicotine dependence, cigarettes, with withdrawal; F19.24 Other psychoactive substance dependence with psychoactive substance-induced mood disorder; I10 Essential (primary) hypertension; J45.909 Unspecified asthma, uncomplicated; N40.0 Benign prostatic hyperplasia without lower urinary tract symptoms; R76.11 Nonspecific reaction to tuberculin skin test without active tuberculosis; G47.00 Insomnia, unspecified; K21.9 Gastro-esophageal reflux disease without esophagitis; R26.2 Difficulty in walking, not elsewhere classified; Z99.89 Dependence on other enabling machines and devices; Z91.018 Allergy to other foods; Z88.8 Allergy status to other drugs, medicaments and biological substances; Z86.19 Personal history of other infectious and parasitic diseases; Z87.438 Personal history of other diseases of male genital organs; Z91.19 Patient's noncompliance with other medical treatment and regimen
CPT/HCPCS: 36415; 71046-TC-FY; 80053; 85027; 86593

== ENCOUNTER 2018-11-05 12:54 | Inpatient (IN) | payer OTHER ==
--- NOTE | 2018-11-05 10:28 | HP ---
[facility] Rehab Assess/Revision - Admission History Admitted to Rehab from: [facility] Date of Admission to Rehab: 11/05/18 - Findings Detox History & Physical reviewed: Yes Concur with findings: Yes Comments/Additional Findings: transferred from detox to rehab admission as per protocol Inpatient Rehab Admission - Rehab Decision to Admit Inpatient rehab admission?: Yes - Initial Determination Are CD services needed?: Yes Free of communicable disease: Yes Not in need of hospitalization: Yes - Rehab Admission Criteria Previous failed treatment: Yes Poor recovery environment: Yes Comorbidities: Yes Lacks judgement: Yes Patient is meeting Inpatient Rehab admission criteria:: Yes
[~2018-11-05 12:54] MED LIST: ACETAMINOPHEN 325 MG TABLET (FP) PO PRN; ALBUTEROL SO4 8 GM HFA INHALER IH PRN; IBUPROFEN 400 MG TABLET (FP) PO PRN; LOPERAMIDE HCL 2 MG CAPSULE PO PRN; MAG HYDROX/AL HYDROX/SIMETH 30 ML UNIT-DOSE CUP PO PRN; MAGNESIUM CITRATE 300 ML BOTTLE PO PRN; MAGNESIUM HYDROX 2400MG/30ML ORAL SUSPENSION 30 ML CUP PO PRN; MENTHOL/PHENOL 1 EACH UD MM PRN; P-EPHED 60MG/TRIPROLIDI 2.5MG TABLET PO PRN; guaiFENesin 200 MG/10 ML 10 ML UNIT-DOSE CUPS PO PRN
[2018-11-05] MEDS: QUEtiapine FUMARATE 100 MG TABLET (FP) PO SCH (21:40)
[2018-11-05] MEDS: THIAMINE HCL 100 MG TABLET (FP) PO SCH (21:41)
[2018-11-05] MEDS: MELATONIN 5 MG TABLETS PO PRN (21:41)
[2018-11-06] MEDS: PRENATAL VITAMINS W/ FOLIC ACID TABLET (FP) PO SCH (09:57)
[2018-11-06] MEDS: LIDOCAINE 5% TOPICAL PATCH TP SCH (09:57)
[2018-11-06] MEDS ORDERED: PANTOPRAZOLE 20 MG TABLET (FP) PO SCH (10:00)
[2018-11-06] MEDS ORDERED: ARTIFICIAL TEARS (POLYVINYL ALCOHOL) OPTH DROPS OU PRN (13:36)
[2018-11-06] MEDS: THIAMINE HCL 100 MG TABLET (FP) PO SCH (21:05)
[2018-11-06] MEDS: LIDOCAINE PATCH REMOVAL MC SCH (21:05)
[2018-11-06] MEDS: QUEtiapine FUMARATE 100 MG TABLET (FP) PO SCH (21:05)
[2018-11-06] MEDS: MELATONIN 5 MG TABLETS PO PRN (21:06)
[2018-11-06] MEDS: PANTOPRAZOLE 20 MG TABLET (FP) PO SCH (21:06)
[2018-11-07] MEDS: PRENATAL VITAMINS W/ FOLIC ACID TABLET (FP) PO SCH (09:48)
[2018-11-07] MEDS: LIDOCAINE 5% TOPICAL PATCH TP SCH (09:48)
--- NOTE | 2018-11-07 13:56 | CONSULT ---
[facility] Psychiatric Consult - Data Date of interview: 11/07/18 Admission source: Self-referred Identifying data: Mr Santiago is a 58 years old single Black male, father of 10 children, unemployed with no source of income, domiciled admitted from inpatient detox on 11/05/18 Substance Abuse History: Reports history of alcohol and cocaine use. Refer to addiction counselor's summary for further information Medical History: Significant for hypertension, dyslipidemia, GERD, benign prostatic hyperplasia, bronchial asthma, history of anemia, treatment for gonorrhea, hepatitis B, and orthosurgery (fracture of mandible) in 1985/1986 + excision of lymph node (left side of neck). Smokes 4 cigarettes daily Psychiatric History: Patient has had multiple admissions for detox/rehab to this facility. He was referred from detox where he was seen by Dr Arana on 11/02. Following is from Dr Arana's summary: Patient continues to deny history of psychiatric hospitalizations. " I get psychiatric care when I am in alf." However, existing records at [facility] reveal history of multiple psychiatric admissions to various facilities ([facility], [facility], [facility], [facility]). Mr Santiago has been diagnosed with Bipolar Disorder, MDD and Anxiety Disorder. Presents with a chronic pattern of non-adherence to OPD care (usually gets scripts from his primary care physician) . with OPD care providers. History of sporadic psychiatric follow-up at the [facility] ([address] Medicated in the past with seroquel + aripriprazole. Patient denies history of suicide attempts. Patient told public relations writer that he was most recently on Seroquel 50 mg/day & 100 mg/hs which he was getting while in detox. Patient at this time is very very talkative, manicky like , denying having mental illness Physical/Sexual Abuse/Trauma History: Patient denies history of sexual abuse. Served in the [place] [employer] ([id number]). No involvement in combat operations. Honorably discharged (self-report). No veterans benefits. Mental Status Exam - Mental Status Exam Alert and Oriented to: Time, Place, Person Cognitive Function: Fair Patient Appearance: Well Groomed Mood: Depressed, Elated Patient Behavior: Talkative, Cooperative Speech Pattern: Clear Voice Loudness: Normal Thought Process: Intact, Goal Oriented Thought Disorder: Not Present Hallucinations: Denies Suicidal Ideation: Denies Homicidal Ideation: Denies Insight/Judgement: Poor Sleep: Poorly Appetite: Poor Muscle strength/Tone: Normal Gait/Station: Normal Psychiatric Findings - Problem List ([place] 1, 2,3) (1) Bipolar disorder Current Visit: Yes Status: Chronic (2) Substance induced mood disorder Current Visit: Yes Status: Acute (3) Substance-induced sleep disorder Current Visit: Yes Status: Acute (4) Alcohol dependence Current Visit: Yes Status: Acute (5) Cocaine dependence Current Visit: No Status: Acute Comment: . (6) Nicotine dependence Current Visit: No Status: Chronic Qualifiers: Nicotine product type: cigarettes Substance use status: in withdrawal Qualified Code(s): F17.213 - Nicotine dependence, cigarettes, with withdrawal Comment: . (7) Arthralgia Current Visit: No Status: Chronic Qualifiers: Joint pain location: knee Laterality: bilateral Qualified Code(s): M25.561 - Pain in right knee; M25.562 - Pain in left knee (8) Asthma Current Visit: No Status: Chronic (9) BPH (benign prostatic hyperplasia) Current Visit: No Status: Chronic (10) Gastroesophageal reflux disease Current Visit: No Status: Chronic (11) PPD positive, treated Current Visit: No Status: Resolved - Initial Treatment Plan Initial Treatment Plan: 1) Continue Seroquel 50 mg po daily and 100 mg po HS. 2 ) Continue inpatient rehabilitation
[2018-11-07] MEDS: MELATONIN 5 MG TABLETS PO PRN (21:32)
[2018-11-07] MEDS: PANTOPRAZOLE 20 MG TABLET (FP) PO SCH (21:32)
[2018-11-07] MEDS: LIDOCAINE PATCH REMOVAL MC SCH (21:32)
[2018-11-07] MEDS: THIAMINE HCL 100 MG TABLET (FP) PO SCH (21:32)
[2018-11-07] MEDS: QUEtiapine FUMARATE 100 MG TABLET (FP) PO SCH (21:32)
--- NOTE | 2018-11-08 10:01 | PN ---
[facility] Progress Note Note: Knee pain: pt fell on sidewalk 2015. Now with knee pain. Applying for benefits. Pt states he had MRI and xrays in the past in [place], but needs new xrays and MRI for SSI/SSD. O: Vital Signs - 24 hr 11/08/18 11/08/18 11/08/18 00:30 03:30 06:16 Temperature 97.4 F L Pulse Rate 76 Respiratory 18 18 18 Rate Blood Pressure 122/81 pt is fully mobile, FROM of both knees ambulatory- uses cane prn a/p: No acute injury. d/w pt that he needs to f/u PCP to get the xrays and MRI that he needs for SSI/SSD.
[2018-11-08] MEDS: QUEtiapine FUMARATE 50 MG TABLET PO SCH (10:08)
[2018-11-08] MEDS: PRENATAL VITAMINS W/ FOLIC ACID TABLET (FP) PO SCH (10:08)
[2018-11-08] MEDS: LIDOCAINE 5% TOPICAL PATCH TP SCH (10:11)
[2018-11-08] MEDS: QUEtiapine FUMARATE 100 MG TABLET (FP) PO SCH (21:06)
[2018-11-08] MEDS: PANTOPRAZOLE 20 MG TABLET (FP) PO SCH (21:06)
[2018-11-08] MEDS: THIAMINE HCL 100 MG TABLET (FP) PO SCH (21:07)
[2018-11-08] MEDS: LIDOCAINE PATCH REMOVAL MC SCH (22:04)
[2018-11-09] MEDS: PRENATAL VITAMINS W/ FOLIC ACID TABLET (FP) PO SCH (09:56)
[2018-11-09] MEDS: QUEtiapine FUMARATE 50 MG TABLET PO SCH (09:56)
[2018-11-09] MEDS: LIDOCAINE 5% TOPICAL PATCH TP SCH (09:57)
[2018-11-09] MEDS: THIAMINE HCL 100 MG TABLET (FP) PO SCH (21:34)
[2018-11-09] MEDS: QUEtiapine FUMARATE 100 MG TABLET (FP) PO SCH (21:34)
[2018-11-09] MEDS: PANTOPRAZOLE 20 MG TABLET (FP) PO SCH (21:34)
[2018-11-09] MEDS: MELATONIN 5 MG TABLETS PO PRN (21:34)
[2018-11-09] MEDS: LIDOCAINE PATCH REMOVAL MC SCH (21:34)
[2018-11-10] MEDS: PRENATAL VITAMINS W/ FOLIC ACID TABLET (FP) PO SCH (09:47)
[2018-11-10] MEDS: LIDOCAINE 5% TOPICAL PATCH TP SCH (09:47)
[2018-11-10] MEDS: QUEtiapine FUMARATE 50 MG TABLET PO SCH (09:47)
[2018-11-10] MEDS: LIDOCAINE PATCH REMOVAL MC SCH (21:07)
[2018-11-10] MEDS: THIAMINE HCL 100 MG TABLET (FP) PO SCH (21:07)
[2018-11-10] MEDS: QUEtiapine FUMARATE 100 MG TABLET (FP) PO SCH (21:07)
[2018-11-10] MEDS: PANTOPRAZOLE 20 MG TABLET (FP) PO SCH (21:07)
[2018-11-11] MEDS: PRENATAL VITAMINS W/ FOLIC ACID TABLET (FP) PO SCH (09:53)
[2018-11-11] MEDS: QUEtiapine FUMARATE 50 MG TABLET PO SCH (09:53)
[2018-11-11] MEDS: LIDOCAINE 5% TOPICAL PATCH TP SCH (09:53)
[2018-11-11] MEDS: QUEtiapine FUMARATE 100 MG TABLET (FP) PO SCH (21:30)
[2018-11-11] MEDS: THIAMINE HCL 100 MG TABLET (FP) PO SCH (21:30)
[2018-11-11] MEDS: PANTOPRAZOLE 20 MG TABLET (FP) PO SCH (21:30)
[2018-11-11] MEDS: LIDOCAINE PATCH REMOVAL MC SCH (21:30)
[2018-11-12] MEDS: PRENATAL VITAMINS W/ FOLIC ACID TABLET (FP) PO SCH (10:03)
[2018-11-12] MEDS: QUEtiapine FUMARATE 50 MG TABLET PO SCH (10:03)
[2018-11-12] MEDS: LIDOCAINE 5% TOPICAL PATCH TP SCH (10:05)
[2018-11-12] MEDS: THIAMINE HCL 100 MG TABLET (FP) PO SCH (21:02)
[2018-11-12] MEDS: QUEtiapine FUMARATE 100 MG TABLET (FP) PO SCH (21:03)
[2018-11-12] MEDS: PANTOPRAZOLE 20 MG TABLET (FP) PO SCH (21:03)
[2018-11-12] MEDS: LIDOCAINE PATCH REMOVAL MC SCH (21:54)
[2018-11-13] MEDS: LIDOCAINE 5% TOPICAL PATCH TP SCH (09:48)
[2018-11-13] MEDS: QUEtiapine FUMARATE 50 MG TABLET PO SCH (09:48)
[2018-11-13] MEDS: PRENATAL VITAMINS W/ FOLIC ACID TABLET (FP) PO SCH (09:48)
[2018-11-13] MEDS: PANTOPRAZOLE 20 MG TABLET (FP) PO SCH (21:27)
[2018-11-13] MEDS: LIDOCAINE PATCH REMOVAL MC SCH (21:27)
[2018-11-13] MEDS: THIAMINE HCL 100 MG TABLET (FP) PO SCH (21:28)
[2018-11-13] MEDS: QUEtiapine FUMARATE 100 MG TABLET (FP) PO SCH (21:28)
[2018-11-14 06:50] VITALS: PULSE 84
[2018-11-14] MEDS: LIDOCAINE 5% TOPICAL PATCH TP SCH (09:55)
[2018-11-14] MEDS: QUEtiapine FUMARATE 50 MG TABLET PO SCH (09:55)
[2018-11-14] MEDS: PRENATAL VITAMINS W/ FOLIC ACID TABLET (FP) PO SCH (09:55)
[2018-11-14] MEDS: QUEtiapine FUMARATE 100 MG TABLET (FP) PO SCH (21:02)
[2018-11-14] MEDS: LIDOCAINE PATCH REMOVAL MC SCH (21:02)
[2018-11-14] MEDS: THIAMINE HCL 100 MG TABLET (FP) PO SCH (21:02)
[2018-11-14] MEDS: PANTOPRAZOLE 20 MG TABLET (FP) PO SCH (21:02)
[2018-11-15] MEDS: PRENATAL VITAMINS W/ FOLIC ACID TABLET (FP) PO SCH (09:48)
[2018-11-15] MEDS: LIDOCAINE 5% TOPICAL PATCH TP SCH (09:48)
[2018-11-15] MEDS: QUEtiapine FUMARATE 50 MG TABLET PO SCH (09:48)
--- NOTE | 2018-11-15 11:51 | PN ---
[facility] Progress Note Note: is scheduled for discharge tomorrow. Scripts for 30 days supply of medications( Seroquel 50 mg/day & 100 mg/hs) will be electronically transmitted to [facility] at [address] [place], [place] [id number]
[2018-11-15] MEDS: QUEtiapine FUMARATE 100 MG TABLET (FP) PO SCH (21:27)
[2018-11-15] MEDS: PANTOPRAZOLE 20 MG TABLET (FP) PO SCH (21:27)
[2018-11-15] MEDS: THIAMINE HCL 100 MG TABLET (FP) PO SCH (21:27)
[2018-11-15] MEDS: LIDOCAINE PATCH REMOVAL MC SCH (21:27)
[2018-11-16 06:58] VITALS: BP 117/80; TEMP 97.9
--- NOTE | 2018-11-16 08:51 | DS ---
[facility] Rehab Discharge Summary - [facility] Rehab Discharge Summary Admission Date: 11/05/18 Discharge Date: 11/16/18 - History Present History: Alcohol dependence - Discharge Physical Exam Vital Signs: Vital Signs Temperature 97.9 F 11/16/18 06:57 Pulse Rate 84 11/16/18 06:57 Respiratory Rate 18 11/16/18 06:57 Blood Pressure 117/80 11/16/18 06:57 O2 Sat by Pulse Oximetry (%) Pertinent Admission Physical Exam Findings: ROS: denies etoh cravings, sweating, chest pain, sob and dizziness. PE: alert and oriented x 3 skin warm and dry +perrla eoms intact bl car s1s2 resp cta bl, no wheezing,rales ext no tremors, amb ad junior - Treatment Discharge Condition: Discharge condition good Hospital Course: Patient completed rehab today for etoh dependence. Patient medically stable and denies SI/HI. Aftercare arranged for 12 steps and patient encouraged to complete group meetings to prevent relapse. Patient also advised to follow up with PCP within one week of discharge to continue medical management. - Medication Discharge Medications: Ambulatory Orders Quetiapine Fumarate [Seroquel -] 50 mg PO DAILY 09/27/17 Albuterol Sulfate Inhaler - [Ventolin HFA Inhaler -] 2 inh IH Q4H PRN #1 cartridge 11/15/18 Quetiapine Fumarate [Seroquel -] 50 mg PO DAILY #30 tablet 11/15/18 Quetiapine Fumarate [Seroquel -] 100 mg PO HS #30 tablet 11/15/18 - Medication-Assisted Treatment (MAT) Medication-Assisted Treatment (MAT): No - Discharge Instructions Diet, activity, other medical instructions: Diet: regular as directed Activity: as tolerated Other medical instructions: follow up with pcp within 1 week of discharge - Follow-up Referral Minutes to complete discharge: 30 - AMA Did Patient Leave Against Medical Advice: No
[2018-11-16] MEDS: LIDOCAINE 5% TOPICAL PATCH TP SCH (09:09)
[2018-11-16] MEDS: QUEtiapine FUMARATE 50 MG TABLET PO SCH (09:09)
[2018-11-16] MEDS: PRENATAL VITAMINS W/ FOLIC ACID TABLET (FP) PO SCH (09:09)
== END 2018-11-16 09:15 | disposition home or self-care (01) | DRG 772 ==
LOC: YASAS 12:54 → Y3W 12:58
PROVIDERS: ADMIT Neuromusculoskeletal Medicine & OMM; ATTEND Neuromusculoskeletal Medicine & OMM
PROC: HZ42ZZZ Group Counseling for Substance Abuse Treatment, Cognitive-Behavioral (ICD-10-PCS; principal; 2018-11-05)
DX: F10.20 Alcohol dependence, uncomplicated (principal); F14.20 Cocaine dependence, uncomplicated; F17.210 Nicotine dependence, cigarettes, uncomplicated; F19.282 Other psychoactive substance dependence with psychoactive substance-induced sleep disorder; F19.24 Other psychoactive substance dependence with psychoactive substance-induced mood disorder; F31.9 Bipolar disorder, unspecified; K21.9 Gastro-esophageal reflux disease without esophagitis; J45.909 Unspecified asthma, uncomplicated; M25.561 Pain in right knee; M25.562 Pain in left knee; N40.0 Benign prostatic hyperplasia without lower urinary tract symptoms; R76.11 Nonspecific reaction to tuberculin skin test without active tuberculosis
CPT/HCPCS: 36415; 82962; 87389

== ENCOUNTER 2019-04-10 08:08 | Inpatient (IN) | payer OTHER ==
--- NOTE | 2019-04-10 08:45 | BHS.RME ---
Substance Use & Tx History - Substance Use History Alcohol Substance amount: 6-10 cans beer, 24 ounce Frequency of use: Daily Substance route: Oral Date of Last Use: 04/09/19 Cocaine (Powder) Substance amount: $40 Frequency of use: More than 3 times per week Substance route: Inhalation (ex: sniffing or snorting), Smoking Date of Last Use: 04/09/19 Nicotine Substance amount: 4 or 5 cigs Frequency of use: Daily Substance route: Smoking Date of Last Use: 04/10/19 Physical/Psych/Mental Status - Behavior General Behavior: Decreased activity Eye Contact: Normal - Cooperativeness Cooperativeness: Cooperative - Thinking Thought Processes: Tight Thought content: Future oriented - Physical Health Problems Is patient presently having any pain?: Yes (chronic knee pain bilateral) Does patient presently have any injuries (include location): Yes (fell last night on knees and hands) Does patient currently have a fever: No Is patient : No CIWA Nausea/Vomitin-Mild Nausea/No Vomiting (meets admission criteria: comorbid medical and psychiatric diagnoses, poor recovery environment, high risk relapse) Muscle Tremors: None Anxiety: 1-Mildly Anxious Agitation: 1-Slight > Activity Paroxysmal Sweats: No Perspiration Orientation: 0-Oriented Tacttile Disturbances: 0-None Auditory Disturbances: 2-Mild Harshness/Frighten Visual Disturbances: 0-None Headache: 1-Very Mild CIWA-Ar Total Score: 6
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
[2019-04-10 09:21] VITALS: BMI 25.1
[2019-04-10] MEDS ORDERED: MAGNESIUM HYDROX 2400MG/30ML ORAL SUSPENSION 30 ML CUP PO PRN (09:27)
[2019-04-10] MEDS ORDERED: MENTHOL/PHENOL 1 EACH UD MM PRN (09:27)
[2019-04-10] MEDS ORDERED: METHOCARBAMOL 500 MG TABLET PO PRN (09:27)
[2019-04-10] MEDS ORDERED: diazePAM 5 MG TABLET PO PRN (09:27)
[2019-04-10] MEDS ORDERED: MAG HYDROX/AL HYDROX/SIMETH 30 ML UNIT-DOSE CUP PO PRN (09:27)
[2019-04-10] MEDS ORDERED: BISMUTH SUBSALICYLATE 262 MG/15 ML BTL PO PRN (09:27)
[2019-04-10] MEDS ORDERED: IBUPROFEN 400 MG TABLET (FP) PO PRN (09:27)
[2019-04-10] MEDS ORDERED: NICOTINE POLACRILEX 2 MG GUM BUC PRN (09:27)
[2019-04-10] MEDS ORDERED: ACETAMINOPHEN 325 MG TABLET (FP) PO PRN ×2 (09:27)
[2019-04-10] MEDS ORDERED: MAGNESIUM CITRATE 300 ML BOTTLE PO PRN (09:27)
[2019-04-10] MEDS ORDERED: ALBUTEROL SO4 HFA INHALER IH PRN (09:30)
[2019-04-10] MEDS ORDERED: ONDANSETRON *ODT* 4 MG TABLET SL ONE (10:00)
[2019-04-10] MEDS: PRENATAL VITAMINS W/ FOLIC ACID TABLET (FP) PO SCH (11:02)
[2019-04-10] MEDS: NICOTINE 7 MG/24 HOURS TOPICAL PATCH TD SCH (11:02)
[2019-04-10] MEDS: hydrOXYzine PAMOATE 25 MG CAPSULE (FP) PO SCH ×4 (11:02→22:12)
--- NOTE | 2019-04-10 11:02 | CONSULT ---
[facility] Psychiatric Consult - Data Date of interview: 04/10/19 Admission source: [facility] Identifying data: Revisit to [facility] and admission to [address] [place] [address] for this 59 y/o AA male self-referred for detoxification treatment. VIKTORIYA issues : alcohol, cocaine, nicotine. Patient is single, father of an undetermined number of dependents (claims more than 40), homeless, unemployed and reportedly supported on food stamps. Substance Abuse History: Discussed with patiuent in this interview. VIKTORIYA profile as follows : Smoking history: Current some day smoker. Have you smoked in the past 12 months: Yes. Aproximately how many cigarettes per day: 1. Cigars Per Day: 0. Hx Chewing Tobacco Use: No. Initiated information on smoking cessation: Yes. 'Breaking Loose' booklet given: 04/10/19. - Substances abused. Alcohol. Substance route: Oral. Frequency: Daily. Amount used: 6-10 24 oz beers. Age of first use: 13. Date of last use: 04/09/19. Cocaine. Substance route: Inhalation. Frequency: Daily. Amount used: $40. Age of first use: 31. Date of last use: 04/09/19 Medical History: Medical history is remarkable for osteoarthritis, hypertension, GERD, benign prostatic hyperplasia, bronchial asthma, past treatment for gonorrhea, hepatitis B, anemia, hypercholesterolemia and orthosurgery (fracture of mandible) in 1985/1986 + excision of lymph node (left side of neck). Psychiatric History: Patient remains a questionable, casual and unreliable historian. He denies history of psychiatric hospitalizations, OPD care or suicide attempts. Current records ([facility]) indicate a history of multiple p sychiatric admissions ([facility], [facility], [facility], [facility]), diagnoses of Bipolar Disorder, MDD and Anxiety Disorder. Patient is known for chronic, enduring pattern of non-adherence to OPD care (usually gets scripts from his primary care physician). No follow-up for months. " I used to take seroquel and vistaril. Nothing else." Patient denies history of suicide attempts. Physical/Sexual Abuse/Trauma History: Patient denies history of sexual abuse. Served in the [employer] ([id number]). No involvement in combat operations. Honorably discharged (self-report). No veterans benefits. Additional Comment: Urine drug screen results: ARLENE-Cocaine. Noted. Mental Status Exam - Mental Status Exam Cognitive Function: Good Patient Appearance: Well Groomed Mood: Expansive Affect: Inappropriate, Mood Congruent Patient Behavior: Cooperative Speech Pattern: Clear Voice Loudness: Normal Thought Process: Goal Oriented Thought Disorder: Bizarre Hallucinations: Denies Suicidal Ideation: Denies Homicidal Ideation: Denies Insight/Judgement: Poor Sleep: Poorly, Difficulty falling asleep Appetite: Good Gait/Station: Other (walks with a limp) Psychiatric Findings - Problem List ([place] 1, 2,3) (1) Alcohol dependence with uncomplicated withdrawal Current Visit: Yes Status: Acute Comment: . (2) Cocaine dependence Current Visit: Yes Status: Chronic Comment: . (3) Nicotine dependence Current Visit: Yes Status: Chronic Qualifiers: Nicotine product type: cigarettes Substance use status: in withdrawal Qualified Code(s): F17.213 - Nicotine dependence, cigarettes, with withdrawal (4) Substance induced mood disorder Current Visit: Yes Status: Chronic (5) History of bipolar disorder Current Visit: Yes Status: Chronic (6) Insomnia Current Visit: Yes Status: Chronic (7) Non-compliant patient Current Visit: Yes Status: Chronic Comment: Lost to psychiatric OPD care for several months. - Initial Treatment Plan Initial Treatment Plan: Psychoeducation. Sleep hygiene. Detoxification. Resumed : seroquel 100 mg po hs. Side effecst/benefits discussed with patient. Informed consent given to . MELLO meetings. Groups. Observation.
[2019-04-10 12:55] LABS: HEMATOCRIT 41.9 % (35.4-49); HEMOGLOBIN 14.2 GM/dL (11.7-16.9); MCH 31.8 pg (25.7-33.7); MCHC 33.9 g/dl (32.0-35.9); MEAN PLT VOLUME 8.9 fl (7.5-11.1); PLATELET COUNT 256 K/MM3 (134-434); RBC 4.46 M/mm3 (4.00-5.60); RDW 12.4 % (11.9-15.9); WHITE BLOOD COUNT 6.7 K/mm3 (4.0-10.0)
[2019-04-10 13:09] LABS: ALBUMIN 3.8 g/dl (3.4-5.0); BILIRUBIN,TOTAL 0.6 mg/dL (0.2-1); BLOOD UREA NITROGEN 13.5 mg/dL (7-18); CALCIUM 8.8 mg/dL (8.5-10.1); CREATININE 1.1 mg/dL (0.55-1.3); POTASSIUM 3.7 mmol/L (3.5-5.1); TOT PROT 7.2 g/dl (6.4-8.2)
[2019-04-10] MEDS: diazePAM 5 MG TABLET PO SCH ×2 (13:54→22:12)
--- NOTE | 2019-04-10 14:28 | PN ---
[facility] Progress Note Note: patient is allergic to meloxicam discontinue motrin
[2019-04-10] MEDS: THIAMINE HCL 100 MG TABLET (FP) PO SCH (22:12)
[2019-04-10] MEDS: QUEtiapine FUMARATE 100 MG TABLET (FP) PO SCH (22:12)
[2019-04-10] MEDS: MELATONIN 5 MG TABLETS PO SCH (22:13)
[2019-04-11] MEDS: diazePAM 5 MG TABLET PO SCH ×3 (05:46→22:13)
[2019-04-11] MEDS: hydrOXYzine PAMOATE 25 MG CAPSULE (FP) PO SCH ×5 (05:46→22:13)
[2019-04-11] MEDS: PRENATAL VITAMINS W/ FOLIC ACID TABLET (FP) PO SCH (10:34)
[2019-04-11] MEDS: NICOTINE 7 MG/24 HOURS TOPICAL PATCH TD SCH (10:34)
--- NOTE | 2019-04-11 12:27 | PN ---
S CIWA - CIWA Score Nausea/Vomitin-No Nausea/No Vomiting Muscle Tremors: 1-None Visible, but [place] Anxiety: 1-Mildly Anxious Agitation: 0-Normal Activity Paroxysmal Sweats: No Perspiration Orientation: 0-Oriented Tacttile Disturbances: 0-None Auditory Disturbances: 0-None Visual Disturbances: 1-Very Mild Sensitivity Headache: 0-None Present CIWA-Ar Total Score: 3 [facility] Progress Note (SOAP) Subjective: 59 years old male admitted on 04/10/19 for alcohol withdrawal sx management treating with valium detox regiment tremor sweating restlessness Objective: 04/11/19 12:39 Vital Signs Temperature 96.5 F L 04/11/19 09:15 Pulse Rate 73 04/11/19 09:15 Respiratory Rate 16 04/11/19 09:15 Blood Pressure 103/58 L 04/11/19 09:15 O2 Sat by Pulse Oximetry (%) Laboratory Last Values WBC 6.7 K/mm3 (4.0-10.0) 04/10/19 09:40 RBC 4.46 M/mm3 (4.00-5.60) 04/10/19 09:40 Hgb 14.2 GM/dL (11.7-16.9) 04/10/19 09:40 Hct 41.9 % (35.4-49) 04/10/19 09:40 MCV 94.0 fl (80-96) 04/10/19 09:40 MCH 31.8 pg (25.7-33.7) 04/10/19 09:40 MCHC 33.9 g/dl (32.0-35.9) 04/10/19 09:40 RDW 12.4 % (11.9-15.9) 04/10/19 09:40 Plt Count 256 K/MM3 (134-434) 04/10/19 09:40 MPV 8.9 fl (7.5-11.1) 04/10/19 09:40 Sodium 144 mmol/L (136-145) 04/10/19 09:40 Potassium 3.7 mmol/L (3.5-5.1) 04/10/19 09:40 Chloride 110 mmol/L (98-107) H 04/10/19 09:40 Carbon Dioxide 26 mmol/L (21-32) 04/10/19 09:40 Anion Gap 8 MMOL/L (8-16) 04/10/19 09:40 BUN 13.5 mg/dL (7-18) 04/10/19 09:40 Creatinine 1.1 mg/dL (0.55-1.3) 04/10/19 09:40 Est GFR (CKD-EPI)AfAm 85.31 04/10/19 09:40 Est GFR (CKD-EPI)NonAf 73.61 04/10/19 09:40 Random Glucose 106 mg/dL (74-106) 04/10/19 09:40 Calcium 8.8 mg/dL (8.5-10.1) 04/10/19 09:40 Total Bilirubin 0.6 mg/dL (0.2-1) 04/10/19 09:40 AST 25 U/L (15-37) 04/10/19 09:40 ALT 45 U/L (13-61) 04/10/19 09:40 Alkaline Phosphatase 56 U/L (45-117) 04/10/19 09:40 Total Protein 7.2 g/dl (6.4-8.2) 04/10/19 09:40 Albumin 3.8 g/dl (3.4-5.0) 04/10/19 09:40 RPR Titer Nonreactive (NONREACTIVE) 04/10/19 09:40 lab note Assessment: 04/11/19 12:40 alcohol withdrawal Plan: valium regiment
[2019-04-11] MEDS: THIAMINE HCL 100 MG TABLET (FP) PO SCH (22:13)
[2019-04-11] MEDS: MELATONIN 5 MG TABLETS PO SCH (22:13)
[2019-04-11] MEDS: QUEtiapine FUMARATE 100 MG TABLET (FP) PO SCH (22:13)
[2019-04-12] MEDS: hydrOXYzine PAMOATE 25 MG CAPSULE (FP) PO SCH ×5 (05:47→22:10)
[2019-04-12] MEDS: diazePAM 5 MG TABLET PO SCH ×2 (05:48→18:40)
[2019-04-12] MEDS: NICOTINE 7 MG/24 HOURS TOPICAL PATCH TD SCH (10:08)
[2019-04-12] MEDS: PRENATAL VITAMINS W/ FOLIC ACID TABLET (FP) PO SCH (10:08)
--- NOTE | 2019-04-12 11:13 | PN ---
S CIWA - CIWA Score Nausea/Vomitin-No Nausea/No Vomiting Muscle Tremors: None Anxiety: 0-No Anxiety, at Ease Agitation: 0-Normal Activity Paroxysmal Sweats: 1-Minimal Palms Moist Orientation: 0-Oriented Tacttile Disturbances: 0-None Auditory Disturbances: 0-None Visual Disturbances: 0-None Headache: 1-Very Mild (hx of migraine) CIWA-Ar Total Score: 2 BHS Progress Note (SOAP) Subjective: Headache, hx of migrines in past tx effectively with NSAIDs. Objective: 04/12/19 11:12 Laboratory Tests 04/10/19 04/10/19 04/10/19 09:40 09:40 09:40 WBC 6.7 RBC 4.46 Hgb 14.2 Hct 41.9 MCV 94.0 MCH 31.8 MCHC 33.9 RDW 12.4 Plt Count 256 MPV 8.9 Sodium 144 Potassium 3.7 Chloride 110 H Carbon Dioxide 26 Anion Gap 8 BUN 13.5 Creatinine 1.1 Est GFR (CKD-EPI)AfAm 85.31 Est GFR (CKD-EPI)NonAf 73.61 Random Glucose 106 Calcium 8.8 Total Bilirubin 0.6 AST 25 ALT 45 Alkaline Phosphatase 56 Total Protein 7.2 Albumin 3.8 RPR Titer Nonreactive Vital Signs - 24 hr 04/11/19 04/11/19 04/11/19 12:31 16:41 20:32 Temperature 98.0 F 98.1 F 98.6 F Pulse Rate 88 66 75 Respiratory 18 18 18 Rate Blood Pressure 126/77 122/79 132/83 04/12/19 04/12/19 04/12/19 00:38 03:33 06:20 Temperature 98.2 F Pulse Rate 67 Respiratory 20 20 18 Rate Blood Pressure 102/69 04/12/19 08:35 Temperature 97.4 F L Pulse Rate 87 Respiratory 18 Rate Blood Pressure 129/82 PE Gnl: WDWN, in no distress Mental status: nl Coord: nl Assessment: 04/12/19 11:12 1. Alcohol use disorder Plan: 1. Valium detox protocol 2. pending discharge in am
[2019-04-12] MEDS: QUEtiapine FUMARATE 100 MG TABLET (FP) PO SCH (22:11)
[2019-04-12] MEDS: MELATONIN 5 MG TABLETS PO SCH (22:11)
[2019-04-12] MEDS: THIAMINE HCL 100 MG TABLET (FP) PO SCH (22:11)
[2019-04-13] MEDS ORDERED: diazePAM 5 MG TABLET PO ONE (06:00)
[2019-04-13] MEDS: hydrOXYzine PAMOATE 25 MG CAPSULE (FP) PO SCH (06:27)
[2019-04-13 06:28] VITALS: BP 131/87; PULSE 90; TEMP 97.2
--- NOTE | 2019-04-13 14:35 | DS ---
[facility] Detox Discharge Summary Admission Date: 04/10/19 Discharge Date: 04/13/19 - History Present History: Alcohol Dependence, Cocaine Dependence Additional Comments: As per H&P: "59 year old male with history of alcohol use with withdrawals. He is seeking detox from alcohol as he's had multiple failures to remain abstinent. He was last here at [facility] 11/02-11/17/19 and completed detox and rehab, but relapsed 6-8 weeks later". Pt is medically cleared and discharged today. Pt completed the detox protocol. Pt is encouraged to follow-up with an outpatient CD program and also to follow- up with his pmd. Pt verbalized understanding of the information given. Pt is alert and oriented x3 and in no acute respiratory distress. Pertinent Past History: h/o asthma, alcohol, and cocaine use disorder. - Physical Exam Results Vital Signs: Vital Signs Temperature 97.2 F L 04/13/19 06:27 Pulse Rate 90 04/13/19 06:27 Respiratory Rate 16 04/13/19 06:30 Blood Pressure 131/87 04/13/19 06:27 O2 Sat by Pulse Oximetry (%) Laboratory Last Values WBC 6.7 K/mm3 (4.0-10.0) 04/10/19 09:40 RBC 4.46 M/mm3 (4.00-5.60) 04/10/19 09:40 Hgb 14.2 GM/dL (11.7-16.9) 04/10/19 09:40 Hct 41.9 % (35.4-49) 04/10/19 09:40 MCV 94.0 fl (80-96) 04/10/19 09:40 MCH 31.8 pg (25.7-33.7) 04/10/19 09:40 MCHC 33.9 g/dl (32.0-35.9) 04/10/19 09:40 RDW 12.4 % (11.9-15.9) 04/10/19 09:40 Plt Count 256 K/MM3 (134-434) 04/10/19 09:40 MPV 8.9 fl (7.5-11.1) 04/10/19 09:40 Sodium 144 mmol/L (136-145) 04/10/19 09:40 Potassium 3.7 mmol/L (3.5-5.1) 04/10/19 09:40 Chloride 110 mmol/L (98-107) H 04/10/19 09:40 Carbon Dioxide 26 mmol/L (21-32) 04/10/19 09:40 Anion Gap 8 MMOL/L (8-16) 04/10/19 09:40 BUN 13.5 mg/dL (7-18) 04/10/19 09:40 Creatinine 1.1 mg/dL (0.55-1.3) 04/10/19 09:40 Est GFR (CKD-EPI)AfAm 85.31 04/10/19 09:40 Est GFR (CKD-EPI)NonAf 73.61 04/10/19 09:40 Random Glucose 106 mg/dL (74-106) 04/10/19 09:40 Calcium 8.8 mg/dL (8.5-10.1) 04/10/19 09:40 Total Bilirubin 0.6 mg/dL (0.2-1) 04/10/19 09:40 AST 25 U/L (15-37) 04/10/19 09:40 ALT 45 U/L (13-61) 04/10/19 09:40 Alkaline Phosphatase 56 U/L (45-117) 04/10/19 09:40 Total Protein 7.2 g/dl (6.4-8.2) 04/10/19 09:40 Albumin 3.8 g/dl (3.4-5.0) 04/10/19 09:40 RPR Titer Nonreactive (NONREACTIVE) 04/10/19 09:40 Labs noted. Pertinent Admission Physical Exam Findings: withdrawal symptoms. - Treatment Hospital Course: Detox Protocol Followed, Detoxed Safely, Responded well, Discharged Condition Good - Medication Discharge Medications: Ambulatory Orders Quetiapine Fumarate [Seroquel -] 50 mg PO DAILY #30 tablet 11/15/18 Quetiapine Fumarate [Seroquel -] 100 mg PO HS #30 tablet 11/15/18 Albuterol Sulfate Inhaler - [Ventolin HFA Inhaler -] 2 inh IH Q4H PRN #1 cartridge 04/13/19 - Diagnosis (1) Alcohol dependence Status: Chronic (2) Alcohol dependence with uncomplicated withdrawal Status: Acute (3) Cocaine dependence Status: Chronic (4) Gastroesophageal reflux disease Status: Chronic (5) Nicotine dependence Status: Chronic Qualifiers: Nicotine product type: cigarettes Substance use status: in withdrawal Qualified Code(s): F17.213 - Nicotine dependence, cigarettes, with withdrawal - AMA Did Patient Leave Against Medical Advice: No
== END 2019-04-13 10:05 | disposition other institution (70) | DRG 774 ==
LOC: YASAS 08:08 → Y3N 09:45
PROVIDERS: ADMIT Allergy & Immunology; ATTEND Allergy & Immunology
PROC: HZ2ZZZZ Detoxification Services for Substance Abuse Treatment (ICD-10-PCS; principal; 2019-04-10)
DX: F10.230 Alcohol dependence with withdrawal, uncomplicated (principal); F14.20 Cocaine dependence, uncomplicated; F17.210 Nicotine dependence, cigarettes, uncomplicated; F31.9 Bipolar disorder, unspecified; F19.24 Other psychoactive substance dependence with psychoactive substance-induced mood disorder; D64.9 Anemia, unspecified; I10 Essential (primary) hypertension; J45.909 Unspecified asthma, uncomplicated; K21.9 Gastro-esophageal reflux disease without esophagitis; N40.0 Benign prostatic hyperplasia without lower urinary tract symptoms; B19.20 Unspecified viral hepatitis C without hepatic coma; M19.90 Unspecified osteoarthritis, unspecified site; Z86.19 Personal history of other infectious and parasitic diseases; Z56.0 Unemployment, unspecified; Z59.0 Homelessness; Z91.013 Allergy to seafood; Z91.018 Allergy to other foods; Z88.0 Allergy status to penicillin; Z91.19 Patient's noncompliance with other medical treatment and regimen
CPT/HCPCS: 36415; 80053; 85027; 86593

== ENCOUNTER 2019-08-02 13:20 | Inpatient (IN) | payer OTHER ==
--- NOTE | 2019-08-02 13:56 | BHS.RME ---
Substance Use & Tx History - Substance Use History Alcohol Substance amount: 10 x 24 ounce beer, 1/2 pint vodka Frequency of use: Daily Substance route: Oral Date of Last Use: 08/01/19 (First use age 13 y. No seizures. Blackouts, last was 8 mos ago. 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) Cocaine- Powder Substance amount: $20 Frequency of use: Daily Substance route: Inhalation (ex: sniffing or snorting), Smoking Date of Last Use: 08/01/19 (First use in his 30s) Nicotine Substance amount: 2-3 cigs Frequency of use: Daily Substance route: Smoking Date of Last Use: 08/02/19 (First use age 46 y) - Last Treatment Treatment type: Substance Use Disorder (VIKTORIYA) (04/09 to 04/13/19) Where was last treatment: Detox Physical/Psych/Mental Status - Behavior General Behavior: Increased activity (restlessness, agitation) Eye Contact: Normal - Cooperativeness Cooperativeness: Cooperative - Thinking Thought Processes: Tight Thought content: Future oriented - Physical Health Problems Is patient presently having any pain?: Yes (chronic joint pain/arthritis) Does patient presently have any injuries (include location): No Does patient currently have a fever: No CIWA Nausea/Vomitin-Mild Nausea/No Vomiting Muscle Tremors: 1-None Visible, but [place] Anxiety: 1-Mildly Anxious Agitation: 1-Slight > Activity Paroxysmal Sweats: 2 Orientation: 2-Disoriented Date<2 days Tacttile Disturbances: 0-None Auditory Disturbances: 2-Mild Harshness/Frighten Visual Disturbances: 2-Mild Sensitivity Headache: 0-None Present CIWA-Ar Total Score: 12
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
[2019-08-02] MEDS ORDERED: MAGNESIUM HYDROX 2400MG/30ML ORAL SUSPENSION 30 ML CUP PO PRN (15:12)
[2019-08-02] MEDS ORDERED: BISMUTH SUBSALICYLATE 524 MG/30 ML UD PO PRN (15:12)
[2019-08-02] MEDS ORDERED: MAGNESIUM CITRATE 300 ML BOTTLE PO PRN (15:12)
[2019-08-02] MEDS ORDERED: IBUPROFEN 400 MG TABLET (FP) PO PRN (15:12)
[2019-08-02] MEDS ORDERED: ACETAMINOPHEN 325 MG TABLET (FP) PO PRN ×2 (15:12)
[2019-08-02] MEDS ORDERED: METHOCARBAMOL 500 MG TABLET PO PRN (15:12)
[2019-08-02] MEDS ORDERED: diazePAM 5 MG TABLET PO PRN (15:12)
[2019-08-02] MEDS ORDERED: MENTHOL/PHENOL 1 EACH UD MM PRN (15:12)
[2019-08-02] MEDS ORDERED: ONDANSETRON *ODT* 4 MG TABLET SL ONE (15:12)
[2019-08-02] MEDS ORDERED: MAG HYDROX/AL HYDROX/SIMETH 30 ML UNIT-DOSE CUP PO PRN (15:12)
[2019-08-02] MEDS ORDERED: ALBUTEROL SO4 HFA INHALER IH PRN (16:08)
[2019-08-02 16:23] VITALS: BMI 24.7
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
[2019-08-02 17:01] LABS: HEMATOCRIT 43.8 % (35.4-49); HEMOGLOBIN 14.8 GM/dL (11.7-16.9); MCH 32.1 pg (25.7-33.7); MCHC 33.8 g/dl (32.0-35.9); MEAN PLT VOLUME 9.1 fl (7.5-11.1); PLATELET COUNT 260 K/MM3 (134-434); RBC 4.61 M/mm3 (4.00-5.60); RDW 12.9 % (11.9-15.9)
[2019-08-02 17:22] LABS: ALBUMIN 4.1 g/dl (3.4-5.0); BILIRUBIN,TOTAL 0.9 mg/dL (0.2-1); BLOOD UREA NITROGEN 13.7 mg/dL (7-18); CALCIUM 9.2 mg/dL (8.5-10.1); CREATININE 1.2 mg/dL (0.55-1.3); POTASSIUM 4.1 mmol/L (3.5-5.1); TOT PROT 7.6 g/dl (6.4-8.2)
[2019-08-02] MEDS: hydrOXYzine PAMOATE 25 MG CAPSULE (FP) PO SCH ×2 (17:52→22:18)
[2019-08-02] MEDS: diazePAM 5 MG TABLET PO SCH (22:18)
[2019-08-02] MEDS: MELATONIN 5 MG TABLETS PO SCH (22:18)
[2019-08-02] MEDS: THIAMINE HCL 100 MG TABLET (FP) PO SCH (22:18)
[2019-08-03] MEDS: hydrOXYzine PAMOATE 25 MG CAPSULE (FP) PO SCH ×5 (06:27→22:06)
[2019-08-03] MEDS: diazePAM 5 MG TABLET PO SCH ×3 (06:27→22:05)
[2019-08-03] MEDS: PRENATAL VITAMINS W/ FOLIC ACID TABLET (FP) PO SCH (10:10)
[2019-08-03] MEDS: NICOTINE 7 MG/24 HOURS TOPICAL PATCH TD SCH (10:10)
[2019-08-03] MEDS: NICOTINE POLACRILEX 2 MG GUM BUC PRN (10:12)
--- NOTE | 2019-08-03 14:50 | PN ---
S CIWA - CIWA Score Nausea/Vomitin-No Nausea/No Vomiting Muscle Tremors: 2 Anxiety: 4-Mod. Anxious/Guarded Agitation: 1-Slight > Activity Paroxysmal Sweats: No Perspiration Orientation: 0-Oriented Tacttile Disturbances: 0-None Auditory Disturbances: 2-Mild Harshness/Frighten Visual Disturbances: 1-Very Mild Sensitivity Headache: 0-None Present CIWA-Ar Total Score: 10 BHS Progress Note (SOAP) Subjective: Anxious, Fatigue, Interrupted Sleep. Objective: Patient A & O X 3; In No Acute Distress. 08/03/19 14:47 Vital Signs Temperature 98.4 F 08/03/19 13:10 Pulse Rate 71 08/03/19 13:10 Respiratory Rate 18 08/03/19 13:10 Blood Pressure 151/93 08/03/19 13:10 O2 Sat by Pulse Oximetry (%) 95 08/03/19 13:10 Laboratory Tests 08/02/19 08/02/19 08/02/19 15:00 15:00 15:00 WBC RBC Hgb Hct MCV MCH MCHC RDW Plt Count MPV Sodium 141 Potassium 4.1 Chloride 108 H Carbon Dioxide 27 Anion Gap 7 L BUN 13.7 Creatinine 1.2 Est GFR (CKD-EPI)AfAm 76.79 Est GFR (CKD-EPI)NonAf 66.26 Random Glucose 110 H Calcium 9.2 Total Bilirubin 0.9 AST 15 ALT 28 Alkaline Phosphatase 51 Total Protein 7.6 Albumin 4.1 Syphilis Serology Non-reactive HIV Ag/Ab Combo Qual Negative 08/02/19 15:00 WBC 6.0 RBC 4.61 Hgb 14.8 Hct 43.8 MCV 95.0 MCH 32.1 MCHC 33.8 RDW 12.9 Plt Count 260 MPV 9.1 Sodium Potassium Chloride Carbon Dioxide Anion Gap BUN Creatinine Est GFR (CKD-EPI)AfAm Est GFR (CKD-EPI)NonAf Random Glucose Calcium Total Bilirubin AST ALT Alkaline Phosphatase Total Protein Albumin Syphilis Serology HIV Ag/Ab Combo Qual LABS NOTED. Assessment: 08/03/19 14:49 WITHDRAWAL SYMPTOMS. Plan: CONTINUE DETOX. PSYCHIATRIC CONSULTATION ORDERED FOR EVALUATION FOR PATIENT'S REPORT OF INSOMNIA.
[2019-08-03 18:28] LABS: URINE APPEARANCE Clear; URINE BILIRUBIN Negative (NEGATIVE); URINE COLOR Yellow; URINE GLUCOSE (UA) Negative (NEGATIVE); URINE KETONE Negative (NEGATIVE); URINE LEUK ESTERASE Negative (NEGATIVE); URINE NITRITE Negative (NEGATIVE); URINE PROTEIN Negative (NEGATIVE); URINE UROBILINOGEN 0.2 mg/dL (0.2-1.0)
[2019-08-03] MEDS: MELATONIN 5 MG TABLETS PO SCH (22:05)
[2019-08-03] MEDS: THIAMINE HCL 100 MG TABLET (FP) PO SCH (22:05)
[2019-08-04] MEDS: diazePAM 5 MG TABLET PO SCH ×2 (07:13→17:54)
[2019-08-04] MEDS: hydrOXYzine PAMOATE 25 MG CAPSULE (FP) PO SCH ×5 (07:13→22:30)
[2019-08-04] MEDS: NICOTINE 7 MG/24 HOURS TOPICAL PATCH TD SCH (10:19)
[2019-08-04] MEDS: PRENATAL VITAMINS W/ FOLIC ACID TABLET (FP) PO SCH (10:19)
[2019-08-04] MEDS ORDERED: IBUPROFEN 400 MG TABLET (FP) PO ONE (13:41)
--- NOTE | 2019-08-04 13:45 | PN ---
S CIWA - CIWA Score Nausea/Vomitin-Mild Nausea/No Vomiting Muscle Tremors: 2 Anxiety: 1-Mildly Anxious Agitation: 1-Slight > Activity Paroxysmal Sweats: 1-Minimal Palms Moist Orientation: 0-Oriented Tacttile Disturbances: 1-Very Mild Itch/Numbness Auditory Disturbances: 0-None Visual Disturbances: 0-None Headache: 1-Very Mild CIWA-Ar Total Score: 8 BHS Progress Note (SOAP) Subjective: 59 years old male admitted on 08/02/19 for alcohol withdrawal sx management treating with valium detox regiment feeling better today ambulating with cane steady gaits reports muscle sore taking motrin at home for muscle aches motrin 400mg po x 1 Objective: 08/04/19 13:44 Vital Signs - 24 hr 08/03/19 08/03/19 08/04/19 17:08 20:40 00:30 Temperature 98 F 98.2 F Pulse Rate 66 75 Respiratory 17 18 18 Rate Blood Pressure 124/77 139/80 O2 Sat by Pulse 96 Oximetry (%) 08/04/19 08/04/19 08/04/19 03:30 07:00 09:00 Temperature 98.2 F 97.9 F Pulse Rate 60 62 Respiratory 18 18 18 Rate Blood Pressure 126/77 112/61 O2 Sat by Pulse 96 Oximetry (%) 08/04/19 11:14 Temperature Pulse Rate Respiratory Rate Blood Pressure O2 Sat by Pulse 96 Oximetry (%) Laboratory Tests 08/02/19 08/02/19 08/02/19 15:00 15:00 15:00 WBC RBC Hgb Hct MCV MCH MCHC RDW Plt Count MPV Sodium 141 Potassium 4.1 Chloride 108 H Carbon Dioxide 27 Anion Gap 7 L BUN 13.7 Creatinine 1.2 Est GFR (CKD-EPI)AfAm 76.79 Est GFR (CKD-EPI)NonAf 66.26 POC Glucometer Random Glucose 110 H Calcium 9.2 Total Bilirubin 0.9 AST 15 ALT 28 Alkaline Phosphatase 51 Total Protein 7.6 Albumin 4.1 Urine Color Urine Appearance Urine pH Ur Specific [place] Urine Protein Urine Glucose (UA) Urine Ketones Urine Blood Urine Nitrite Urine Bilirubin Urine Urobilinogen Ur Leukocyte Esterase Syphilis Serology Non-reactive HIV Ag/Ab Combo Qual Negative 08/02/19 08/03/19 08/03/19 15:00 15:30 16:40 WBC 6.0 RBC 4.61 Hgb 14.8 Hct 43.8 MCV 95.0 MCH 32.1 MCHC 33.8 RDW 12.9 Plt Count 260 MPV 9.1 Sodium Potassium Chloride Carbon Dioxide Anion Gap BUN Creatinine Est GFR (CKD-EPI)AfAm Est GFR (CKD-EPI)NonAf POC Glucometer 117 Random Glucose Calcium Total Bilirubin AST ALT Alkaline Phosphatase Total Protein Albumin Urine Color Yellow Urine Appearance Clear Urine pH 5.0 Ur Specific [place] >= 1.030 Urine Protein Negative Urine Glucose (UA) Negative Urine Ketones Negative Urine Blood Negative Urine Nitrite Negative Urine Bilirubin Negative Urine Urobilinogen 0.2 Ur Leukocyte Esterase Negative Syphilis Serology HIV Ag/Ab Combo Qual Assessment: 08/04/19 13:45 alcohol withdrawal Plan: valium regiment
[2019-08-04] MEDS: THIAMINE HCL 100 MG TABLET (FP) PO SCH (22:30)
[2019-08-04] MEDS: MELATONIN 5 MG TABLETS PO SCH (22:30)
[2019-08-05] MEDS ORDERED: diazePAM 5 MG TABLET PO ONE (06:00)
[2019-08-05 06:59] VITALS: BP 144/78; PULSE 60; TEMP 98
[2019-08-05] MEDS: hydrOXYzine PAMOATE 25 MG CAPSULE (FP) PO SCH ×2 (06:59→10:15)
--- NOTE | 2019-08-05 09:28 | DS ---
[facility] Detox Discharge Summary Admission Date: 08/02/19 Discharge Date: 08/05/19 - History Present History: Alcohol Dependence, Cocaine Dependence Pertinent Past History: Asthma HTN(no meds) Borderline DM(no meds) Anemia GERD Mood disorder - Physical Exam Results Vital Signs: Vital Signs Temperature 98.0 F 08/05/19 05:30 Pulse Rate 60 08/05/19 05:30 Respiratory Rate 20 08/05/19 05:30 Blood Pressure 144/78 08/05/19 05:30 O2 Sat by Pulse Oximetry (%) 97 08/05/19 05:30 Alert o x 3 nad oob ambulating with steady gait with cane cardiac:s1 s2,rrr abdomen:soft,+bs,nt,nd extremities;no edema,skin intact Pertinent Admission Physical Exam Findings: Laboratory Tests 08/02/19 08/02/19 08/02/19 15:00 15:00 15:00 WBC RBC Hgb Hct MCV MCH MCHC RDW Plt Count MPV Sodium 141 Potassium 4.1 Chloride 108 H Carbon Dioxide 27 Anion Gap 7 L BUN 13.7 Creatinine 1.2 Est GFR (CKD-EPI)AfAm 76.79 Est GFR (CKD-EPI)NonAf 66.26 POC Glucometer Random Glucose 110 H Calcium 9.2 Total Bilirubin 0.9 AST 15 ALT 28 Alkaline Phosphatase 51 Total Protein 7.6 Albumin 4.1 Urine Color Urine Appearance Urine pH Ur Specific [place] Urine Protein Urine Glucose (UA) Urine Ketones Urine Blood Urine Nitrite Urine Bilirubin Urine Urobilinogen Ur Leukocyte Esterase Syphilis Serology Non-reactive COVID-19 (JULIO) HIV Ag/Ab Combo Qual Negative 08/02/19 08/02/19 08/03/19 15:00 16:40 15:30 WBC 6.0 RBC 4.61 Hgb 14.8 Hct 43.8 MCV 95.0 MCH 32.1 MCHC 33.8 RDW 12.9 Plt Count 260 MPV 9.1 Sodium Potassium Chloride Carbon Dioxide Anion Gap BUN Creatinine Est GFR (CKD-EPI)AfAm Est GFR (CKD-EPI)NonAf POC Glucometer Random Glucose Calcium Total Bilirubin AST ALT Alkaline Phosphatase Total Protein Albumin Urine Color Yellow Urine Appearance Clear Urine pH 5.0 Ur Specific [place] >= 1.030 Urine Protein Negative Urine Glucose (UA) Negative Urine Ketones Negative Urine Blood Negative Urine Nitrite Negative Urine Bilirubin Negative Urine Urobilinogen 0.2 Ur Leukocyte Esterase Negative Syphilis Serology COVID-19 (JULIO) Not detected HIV Ag/Ab Combo Qual 08/03/19 08/04/19 08/05/19 16:40 16:52 07:25 WBC RBC Hgb Hct MCV MCH MCHC RDW Plt Count MPV Sodium Potassium Chloride Carbon Dioxide Anion Gap BUN Creatinine Est GFR (CKD-EPI)AfAm Est GFR (CKD-EPI)NonAf POC Glucometer 117 110 126 Random Glucose Calcium Total Bilirubin AST ALT Alkaline Phosphatase Total Protein Albumin Urine Color Urine Appearance Urine pH Ur Specific [place] Urine Protein Urine Glucose (UA) Urine Ketones Urine Blood Urine Nitrite Urine Bilirubin Urine Urobilinogen Ur Leukocyte Esterase Syphilis Serology COVID-19 (JULIO) HIV Ag/Ab Combo Qual Covid-19 not detected - Treatment Hospital Course: Detox Protocol Followed, Detoxed Safely, Responded well, Discharged Condition Good, Rehab Referral Accepted Patient has Accepted a Rehab Referral to: [facility] - Medication Discharge Medications: Ambulatory Orders Quetiapine Fumarate [Seroquel -] 50 mg PO DAILY #30 tablet 11/15/18 Quetiapine Fumarate [Seroquel -] 100 mg PO HS #30 tablet 11/15/18 Albuterol Sulfate Inhaler - [Ventolin HFA Inhaler -] 2 inh IH Q4H PRN #1 cartridge 04/13/19 - Diagnosis (1) Cocaine dependence Current Visit: Yes Status: Acute (2) Nicotine dependence Current Visit: Yes Status: Acute Qualifiers: Nicotine product type: cigarettes Substance use status: in withdrawal Qualified Code(s): F17.213 - Nicotine dependence, cigarettes, with withdrawal (3) Alcohol dependence with uncomplicated withdrawal Current Visit: Yes Status: Acute (4) Use of cane as ambulatory aid Current Visit: Yes Status: Chronic (5) Arthritis of right knee Current Visit: Yes Status: Chronic (6) Hypertension Current Visit: Yes Status: Chronic Qualifiers: Hypertension type: essential hypertension Qualified Code(s): I10 - Essential (primary) hypertension (7) Borderline diabetes mellitus Current Visit: Yes Status: Suspected - AMA Did Patient Leave Against Medical Advice: No
[2019-08-05] MEDS: NICOTINE 7 MG/24 HOURS TOPICAL PATCH TD SCH (10:15)
[2019-08-05] MEDS: PRENATAL VITAMINS W/ FOLIC ACID TABLET (FP) PO SCH (10:15)
[2019-08-05] MEDS: NICOTINE POLACRILEX 2 MG GUM BUC PRN (10:16)
== END 2019-08-05 11:33 | disposition other institution (70) | DRG 774 ==
LOC: YASAS 13:20 → Y5N DETOX 16:39
PROVIDERS: ADMIT Allergy & Immunology; ATTEND Allergy & Immunology
PROC: HZ2ZZZZ Detoxification Services for Substance Abuse Treatment (ICD-10-PCS; principal; 2019-08-02)
DX: F10.230 Alcohol dependence with withdrawal, uncomplicated (principal); F14.20 Cocaine dependence, uncomplicated; F17.213 Nicotine dependence, cigarettes, with withdrawal; F31.9 Bipolar disorder, unspecified; I10 Essential (primary) hypertension; R73.03 Prediabetes; M17.11 Unilateral primary osteoarthritis, right knee; J45.909 Unspecified asthma, uncomplicated; K21.9 Gastro-esophageal reflux disease without esophagitis; G47.00 Insomnia, unspecified; R26.2 Difficulty in walking, not elsewhere classified; Z99.89 Dependence on other enabling machines and devices; Z88.8 Allergy status to other drugs, medicaments and biological substances; Z87.438 Personal history of other diseases of male genital organs; Z91.013 Allergy to seafood; Z91.018 Allergy to other foods; Z86.19 Personal history of other infectious and parasitic diseases
CPT/HCPCS: 36415; 80053; 81003; 82962; 85027; 86780; 87389; U0003

== ENCOUNTER 2019-08-05 11:13 | Inpatient (IN) | payer OTHER ==
[2019-08-05] MEDS ORDERED: IBUPROFEN 400 MG TABLET (FP) PO PRN (12:23)
[2019-08-05] MEDS ORDERED: MAGNESIUM CITRATE 300 ML BOTTLE PO PRN (12:23)
[2019-08-05] MEDS ORDERED: MENTHOL/PHENOL 1 EACH UD MM PRN (12:23)
[2019-08-05] MEDS ORDERED: ACETAMINOPHEN 325 MG TABLET (FP) PO PRN (12:23)
[2019-08-05] MEDS ORDERED: P-EPHED 60MG/TRIPROLIDI 2.5MG TABLET PO PRN (12:23)
[2019-08-05] MEDS ORDERED: guaiFENesin 200 MG/10 ML 10 ML UNIT-DOSE CUPS PO PRN (12:23)
[2019-08-05] MEDS ORDERED: MAGNESIUM HYDROX 2400MG/30ML ORAL SUSPENSION 30 ML CUP PO PRN (12:23)
[2019-08-05] MEDS ORDERED: LOPERAMIDE HCL 2 MG CAPSULE PO PRN (12:23)
[2019-08-05] MEDS ORDERED: MAG HYDROX/AL HYDROX/SIMETH 30 ML UNIT-DOSE CUP PO PRN (12:23)
--- NOTE | 2019-08-05 12:23 | HP ---
[facility] Rehab Assess/Revision - Vital signs Vital Signs: Vital Signs Period Temp Pulse Resp BP Sys/Arevalo Pulse Ox Last 24 Hr 98.7 F 68 18 147/74 - Findings Detox History & Physical reviewed: Yes Concur with findings: Yes Comments/Additional Findings: pt referred to [facility]hab from [address] [place] [address] detox. Alert o x 3. nad. oob ambulating with steady gait Inpatient Rehab Admission - Rehab Decision to Admit Inpatient rehab admission?: Yes - Initial Determination Are CD services needed?: Yes Free of communicable disease: Yes Not in need of hospitalization: Yes - Rehab Admission Criteria Previous failed treatment: Yes Poor recovery environment: Yes Comorbidities: Yes Lacks judgement: Yes Patient is meeting Inpatient Rehab admission criteria:: Yes
--- NOTE | 2019-08-05 15:43 | CONSULT ---
[facility] Psychiatric Consult - Data Date of interview: 08/05/19 Admission source: Transfer from [address] [place] [address] (detoxification unit). Identifying data: Discharged today to [address] for rehabilitation (from the detoxification unit at [address] [place] [address]) for this 59 y/o AA male seeking continuity of care to safeguard sobriety (VIKTORIYA issues : alcohol, cocaine, nicotine) and address his psychiatric co-morbidities (mood disorder + insomnia). Patient is single, father of an undetermined number of dependents (claims more than 20 in this interview), homeless, unemployed and reportedly supported on welfare. Substance Abuse History: Discussed with the patient. VIKTORIYA profile as follows : Smoking history: Current some day smoker. Have you smoked in the past 12 months: Yes. Aproximately how many cigarettes per day: 4. Cigars Per Day: 0. Hx Chewing Tobacco Use: No. Initiated information on smoking cessation: Yes. 'Breaking Loose' booklet given: 08/02/19. - Substance & Tx. History. Hx Alcohol Use: Yes. Hx Substance Use: Yes. Substance Use Type: Alcohol, Cocaine. Hx Substance Use Treatment: Yes ([facility] 04/10/19 to 04/13/19). - Substances abused. Alcohol. Substance route: Oral. Frequency: Daily. Amount used: 1 pint of vodka/8 to 10 cans 24 ozs of beer. Age of first use: 13. Date of last use: 08/01/19. Crack. Substance route: Smoking. Frequency: 3-6 times per week. Amount used: 40$. Age of first use: 37. Date of last use: 08/01/19 Medical History: Medical history is remarkable for osteoarthritis, hypertension, GERD, benign prostatic hyperplasia, bronchial asthma, past treatment for gonorrhea, hepatitis B, anemia, hypercholesterolemia and orthosurgery for fracture of mandible (1985/1986) + excision of lymph node (left side of neck). Patient uses a cane for ambulation. Psychiatric History: Patient denies history of psychiatric hospitalizations, OPD care or suicide attempts. " I used to see a psychiatrist years ago for anxiety. I have stopped going to any program. However, I want to get back on my seroquel 50 mg in the morning and 100 mg at night. It helps me stay calm and sleep well." Patient is not a reliable historian as evidenced by current records ([facility]) indicative of a history of multiple psychiatric admissions ([facility], [facility], [facility], [facility]), diagnoses of Bipolar Disorder, MDD and Anxiety Disorder, enduring pattern of non-adherence to OPD care (usually gets scripts from his primary care physician) and frequent utilization of VIKTORIYA services at various institutions. Physical/Sexual Abuse/Trauma History: Patient denies history of sexual abuse. According to [facility] records, the patient had served in the [employer] (1978- 1983). No involvement in combat operations. Honorably discharged (self-report). No veterans benefits. Additional Comment: Urine drug screen results: ARLENE-Cocaine. Noted. Mental Status Exam - Mental Status Exam Alert and Oriented to: Time, Place, Person Cognitive Function: Good Patient Appearance: Well Groomed Mood: Hopeful, Euthymic Affect: Appropriate, Normal Range Patient Behavior: Cooperative Speech Pattern: Clear, Appropriate Voice Loudness: Normal Thought Process: Intact, Goal Oriented Thought Disorder: Not Present Hallucinations: Denies Suicidal Ideation: Denies Homicidal Ideation: Denies Insight/Judgement: Poor Sleep: Poorly, Difficulty falling asleep Appetite: Good Gait/Station: Other (ambulates with a cane) Psychiatric Findings - Problem List ([place] 1, 2,3) (1) Alcohol dependence Current Visit: Yes Status: Chronic Qualifiers: Substance use status: uncomplicated Qualified Code(s): F10.20 - Alcohol dependence, uncomplicated (2) Cocaine dependence Current Visit: Yes Status: Chronic Comment: . (3) Nicotine dependence Current Visit: Yes Status: Chronic Qualifiers: Nicotine product type: cigarettes Substance use status: in withdrawal Qualified Code(s): F17.213 - Nicotine dependence, cigarettes, with withdrawal Comment: . (4) History of bipolar disorder Current Visit: Yes Status: Chronic Comment: . (5) Insomnia Current Visit: Yes Status: Chronic Qualifiers: Insomnia type: unspecified Qualified Code(s): G47.00 - Insomnia, unspecified - Initial Treatment Plan Initial Treatment Plan: Psychoeducation. Sleep hygiene. Support. Motivational counseling. Resumed, at the patient's request seroquel 50 mg po bid. Side effects/benefits are discussed with patient. Mr Santiago gave his informed consent (verbal) to MD. Benton.
[2019-08-05] MEDS: MELATONIN 5 MG TABLETS PO SCH (21:19)
[2019-08-05] MEDS: THIAMINE HCL 100 MG TABLET (FP) PO SCH (21:19)
[2019-08-05] MEDS ORDERED: QUEtiapine FUMARATE 50 MG TABLET PO SCH (22:00)
[2019-08-06] MEDS: NICOTINE 7 MG/24 HOURS TOPICAL PATCH TD SCH (09:36)
[2019-08-06] MEDS: PRENATAL VITAMINS W/ FOLIC ACID TABLET (FP) PO SCH (09:37)
[2019-08-06] MEDS: QUEtiapine FUMARATE 50 MG TABLET PO SCH (09:37)
--- NOTE | 2019-08-06 11:57 | PN ---
[facility] Progress Note Note: patient states that he is "pre-diabetic" and this is included in his problem list. Requested glucerna. Random Fs was 126m, random glucose on admission, 110 Vital Signs Period Temp Pulse Resp BP Sys/Arevalo Pulse Ox Last 24 Hr 97.8 F-98.7 F 62-68 16-20 105-147/70-77 95-96 P/E; General: no apparent distress neuro: No cognitive deficits, Skin- dry, warm, good turgor Resp: unlabored Cardiac; a1 s2 ABD+BS A/P elevated blood glucose A1c ordered, BGM x3 ordered Continue to monitor.
--- NOTE | 2019-08-06 16:11 | PN ---
[facility] Progress Note Note: Psychiatry Attending's note (follow-up) : Reminder, via telephone, by RN Boom. Issue : optimization of the evening dose of seroquel. As discussed, on 08/05/19, with the patient. See my note. Chart reviewed. Vitals checked. Normal. Medication well tolerated. Intervention : seroquel 100 mg po hs (with the patient's verbal consent).
[2019-08-06] MEDS: QUEtiapine FUMARATE 100 MG TABLET (FP) PO SCH (21:51)
[2019-08-06] MEDS: MELATONIN 5 MG TABLETS PO SCH (21:51)
[2019-08-06] MEDS: THIAMINE HCL 100 MG TABLET (FP) PO SCH (21:51)
[2019-08-07] MEDS: PRENATAL VITAMINS W/ FOLIC ACID TABLET (FP) PO SCH (09:45)
[2019-08-07] MEDS: QUEtiapine FUMARATE 50 MG TABLET PO SCH (09:46)
[2019-08-07] MEDS: NICOTINE 7 MG/24 HOURS TOPICAL PATCH TD SCH (09:46)
--- NOTE | 2019-08-07 14:12 | PN ---
[facility] Progress Note Note: Patient reported that he was pre-diabetic. FS were WNL. Hemoglobin A1c drawn, it was 5. FS discontinued. Laboratory Last Values POC Glucometer 107 UNITS (80-120) 08/07/19 07:00 Hemoglobin A1c % 5.0 % (4.2-6.3) 08/07/19 07:50
[2019-08-07] MEDS: THIAMINE HCL 100 MG TABLET (FP) PO SCH (21:28)
[2019-08-07] MEDS: QUEtiapine FUMARATE 100 MG TABLET (FP) PO SCH (21:28)
[2019-08-07] MEDS: hydrOXYzine PAMOATE 25 MG CAPSULE (FP) PO PRN (21:28)
[2019-08-07] MEDS: MELATONIN 5 MG TABLETS PO SCH (21:28)
[2019-08-08] MEDS: QUEtiapine FUMARATE 50 MG TABLET PO SCH (09:40)
[2019-08-08] MEDS: PRENATAL VITAMINS W/ FOLIC ACID TABLET (FP) PO SCH (09:40)
[2019-08-08] MEDS: NICOTINE 7 MG/24 HOURS TOPICAL PATCH TD SCH (09:40)
[2019-08-08] MEDS: MELATONIN 5 MG TABLETS PO SCH (21:38)
[2019-08-08] MEDS: QUEtiapine FUMARATE 100 MG TABLET (FP) PO SCH (21:38)
[2019-08-08] MEDS: THIAMINE HCL 100 MG TABLET (FP) PO SCH (21:38)
[2019-08-09] MEDS: QUEtiapine FUMARATE 50 MG TABLET PO SCH (09:52)
[2019-08-09] MEDS: NICOTINE 7 MG/24 HOURS TOPICAL PATCH TD SCH (09:52)
[2019-08-09] MEDS: PRENATAL VITAMINS W/ FOLIC ACID TABLET (FP) PO SCH (09:52)
[2019-08-09] MEDS: MELATONIN 5 MG TABLETS PO SCH (21:45)
[2019-08-09] MEDS: THIAMINE HCL 100 MG TABLET (FP) PO SCH (21:45)
[2019-08-09] MEDS: QUEtiapine FUMARATE 100 MG TABLET (FP) PO SCH (21:45)
[2019-08-10] MEDS: PRENATAL VITAMINS W/ FOLIC ACID TABLET (FP) PO SCH (09:44)
[2019-08-10] MEDS: NICOTINE 7 MG/24 HOURS TOPICAL PATCH TD SCH (09:44)
[2019-08-10] MEDS: NICOTINE POLACRILEX 2 MG GUM BUC PRN (09:45)
[2019-08-10] MEDS: QUEtiapine FUMARATE 50 MG TABLET PO SCH (09:45)
[2019-08-10] MEDS: QUEtiapine FUMARATE 100 MG TABLET (FP) PO SCH (21:16)
[2019-08-10] MEDS: THIAMINE HCL 100 MG TABLET (FP) PO SCH (21:16)
[2019-08-10] MEDS: MELATONIN 5 MG TABLETS PO SCH (21:16)
[2019-08-11] MEDS: PRENATAL VITAMINS W/ FOLIC ACID TABLET (FP) PO SCH (09:57)
[2019-08-11] MEDS: NICOTINE 7 MG/24 HOURS TOPICAL PATCH TD SCH (09:57)
[2019-08-11] MEDS: QUEtiapine FUMARATE 50 MG TABLET PO SCH (09:57)
[2019-08-11] MEDS: THIAMINE HCL 100 MG TABLET (FP) PO SCH (21:29)
[2019-08-11] MEDS: MELATONIN 5 MG TABLETS PO SCH (21:29)
[2019-08-11] MEDS: QUEtiapine FUMARATE 100 MG TABLET (FP) PO SCH (21:29)
[2019-08-12] MEDS: NICOTINE 7 MG/24 HOURS TOPICAL PATCH TD SCH (09:48)
[2019-08-12] MEDS: QUEtiapine FUMARATE 50 MG TABLET PO SCH (09:48)
[2019-08-12] MEDS: PRENATAL VITAMINS W/ FOLIC ACID TABLET (FP) PO SCH (09:48)
[2019-08-12] MEDS: MELATONIN 5 MG TABLETS PO SCH (21:14)
[2019-08-12] MEDS: THIAMINE HCL 100 MG TABLET (FP) PO SCH (21:14)
[2019-08-12] MEDS: QUEtiapine FUMARATE 100 MG TABLET (FP) PO SCH (21:14)
[2019-08-13] MEDS: QUEtiapine FUMARATE 50 MG TABLET PO SCH (09:34)
[2019-08-13] MEDS: NICOTINE 7 MG/24 HOURS TOPICAL PATCH TD SCH (09:34)
[2019-08-13] MEDS: PRENATAL VITAMINS W/ FOLIC ACID TABLET (FP) PO SCH (09:35)
[2019-08-13] MEDS: MELATONIN 5 MG TABLETS PO SCH (21:14)
[2019-08-13] MEDS: THIAMINE HCL 100 MG TABLET (FP) PO SCH (21:15)
[2019-08-13] MEDS: QUEtiapine FUMARATE 100 MG TABLET (FP) PO SCH (21:15)
[2019-08-13] MEDS: hydrOXYzine PAMOATE 25 MG CAPSULE (FP) PO PRN (21:17)
[2019-08-14] MEDS ORDERED: BENZOCAINE 20 % GEL TUBE MM PRN (08:13)
[2019-08-14] MEDS: NICOTINE 7 MG/24 HOURS TOPICAL PATCH TD SCH (09:22)
[2019-08-14] MEDS: NICOTINE POLACRILEX 2 MG GUM BUC PRN (09:22)
[2019-08-14] MEDS: QUEtiapine FUMARATE 50 MG TABLET PO SCH (09:22)
[2019-08-14] MEDS: PRENATAL VITAMINS W/ FOLIC ACID TABLET (FP) PO SCH (09:22)
[2019-08-14] MEDS: QUEtiapine FUMARATE 100 MG TABLET (FP) PO SCH (21:19)
[2019-08-14] MEDS: THIAMINE HCL 100 MG TABLET (FP) PO SCH (21:19)
[2019-08-14] MEDS: hydrOXYzine PAMOATE 25 MG CAPSULE (FP) PO PRN (21:19)
[2019-08-14] MEDS: MELATONIN 5 MG TABLETS PO SCH (21:19)
[2019-08-15] MEDS: NICOTINE 7 MG/24 HOURS TOPICAL PATCH TD SCH (09:24)
[2019-08-15] MEDS: NICOTINE POLACRILEX 2 MG GUM BUC PRN (09:25)
[2019-08-15] MEDS: PRENATAL VITAMINS W/ FOLIC ACID TABLET (FP) PO SCH (09:25)
[2019-08-15] MEDS: QUEtiapine FUMARATE 50 MG TABLET PO SCH (09:25)
[2019-08-15] MEDS: hydrOXYzine PAMOATE 25 MG CAPSULE (FP) PO PRN (21:20)
[2019-08-15] MEDS: MELATONIN 5 MG TABLETS PO SCH (21:20)
[2019-08-15] MEDS: QUEtiapine FUMARATE 100 MG TABLET (FP) PO SCH (21:20)
[2019-08-15] MEDS: THIAMINE HCL 100 MG TABLET (FP) PO SCH (21:20)
[2019-08-16] MEDS: NICOTINE 7 MG/24 HOURS TOPICAL PATCH TD SCH (09:28)
[2019-08-16] MEDS: PRENATAL VITAMINS W/ FOLIC ACID TABLET (FP) PO SCH (09:28)
[2019-08-16] MEDS: QUEtiapine FUMARATE 50 MG TABLET PO SCH (09:28)
[2019-08-16] MEDS: hydrOXYzine PAMOATE 25 MG CAPSULE (FP) PO PRN (21:40)
[2019-08-16] MEDS: QUEtiapine FUMARATE 100 MG TABLET (FP) PO SCH (21:40)
[2019-08-16] MEDS: THIAMINE HCL 100 MG TABLET (FP) PO SCH (21:40)
[2019-08-16] MEDS: MELATONIN 5 MG TABLETS PO SCH (21:41)
[2019-08-17] MEDS: PRENATAL VITAMINS W/ FOLIC ACID TABLET (FP) PO SCH (09:33)
[2019-08-17] MEDS: QUEtiapine FUMARATE 50 MG TABLET PO SCH (09:33)
[2019-08-17] MEDS: NICOTINE 7 MG/24 HOURS TOPICAL PATCH TD SCH (09:34)
[2019-08-17] MEDS: QUEtiapine FUMARATE 100 MG TABLET (FP) PO SCH (21:41)
[2019-08-17] MEDS: MELATONIN 5 MG TABLETS PO SCH (21:41)
[2019-08-17] MEDS: THIAMINE HCL 100 MG TABLET (FP) PO SCH (21:41)
[2019-08-17] MEDS: hydrOXYzine PAMOATE 25 MG CAPSULE (FP) PO PRN (21:42)
[2019-08-18] MEDS: QUEtiapine FUMARATE 50 MG TABLET PO SCH (09:44)
[2019-08-18] MEDS: PRENATAL VITAMINS W/ FOLIC ACID TABLET (FP) PO SCH (09:45)
[2019-08-18] MEDS: NICOTINE 7 MG/24 HOURS TOPICAL PATCH TD SCH (09:45)
--- NOTE | 2019-08-18 11:50 | PN ---
[facility] Progress Note Note: Patient is scheduled for discharge tomorrow. Script for 30 days supply of Seroquel 50 mg/day & 100 mg/hs will be electronically transmitted to [facility], [address] [place] [id number]
[2019-08-18] MEDS: MELATONIN 5 MG TABLETS PO SCH (21:11)
[2019-08-18] MEDS: QUEtiapine FUMARATE 100 MG TABLET (FP) PO SCH (21:11)
[2019-08-18] MEDS: THIAMINE HCL 100 MG TABLET (FP) PO SCH (21:12)
[2019-08-19 06:56] VITALS: BP 129/87; PULSE 79; TEMP 97.7
--- NOTE | 2019-08-19 09:14 | DS ---
[facility] Rehab Discharge Summary - [facility] Rehab Discharge Summary Admission Date: 08/05/19 Discharge Date: 08/19/19 - History Present History: Alcohol dependence, Cocaine dependence Pertinent Past History: Asthma GERD(no current med) BPH(no current med) HTN(no current meds) Borderline DM(no current med) Use of cane as Ambulatory Aid Arthritis Right Knee Hx Bipolar Disorder - Discharge Physical Exam Vital Signs: Vital Signs Temperature 97.7 F 08/19/19 06:13 Pulse Rate 79 08/19/19 06:13 Respiratory Rate 18 08/19/19 06:13 Blood Pressure 129/87 08/19/19 06:13 O2 Sat by Pulse Oximetry (%) 96 08/19/19 06:13 Alert o x 3 nad oob ambulating with steady gait with cane cardiac:s1 s2,rrr lungs:ctab abdomen:soft,+bs,nt,nd extremities:no edema, skin intact. Pertinent Admission Physical Exam Findings: Laboratory Tests 08/07/19 08/07/19 07:00 07:50 POC Glucometer 107 Hemoglobin A1c % 5.0 - Treatment Discharge Condition: Discharge condition good Hospital Course: Rehabilitated safely Cd accepted to [facility] CD program - Medication Discharge Medications: Ambulatory Orders Quetiapine Fumarate [Seroquel -] 50 mg PO DAILY #30 tablet 11/15/18 Quetiapine Fumarate [Seroquel -] 100 mg PO HS #30 tablet 11/15/18 Ventolin HFA Inhaler - 2 inh PO PRN 08/05/19 Quetiapine Fumarate [Seroquel -] 50 mg PO DAILY #30 tablet 08/18/19 Quetiapine Fumarate [Seroquel -] 100 mg PO HS #30 tablet 08/18/19 Albuterol Sulfate Inhaler - [Ventolin HFA Inhaler -] 2 inh IH Q4H PRN #1 cartridge 08/19/19 - Medication-Assisted Treatment (MAT) Medication-Assisted Treatment (MAT): No - Discharge Instructions Diet, activity, other medical instructions: Diet: Activity: Other medical instructions: - Diagnosis (1) Cocaine dependence Current Visit: Yes Status: Chronic (2) Asthma Current Visit: Yes Status: Chronic (3) Gastroesophageal reflux disease Current Visit: Yes Status: Chronic (4) BPH (benign prostatic hyperplasia) Current Visit: Yes Status: Chronic (5) Nicotine dependence Current Visit: Yes Status: Chronic Qualifiers: Nicotine product type: cigarettes Substance use status: in withdrawal Qualified Code(s): F17.213 - Nicotine dependence, cigarettes, with withdrawal (6) Alcohol dependence Current Visit: Yes Status: Chronic Qualifiers: Substance use status: uncomplicated Qualified Code(s): F10.20 - Alcohol dependence, uncomplicated (7) Use of cane as ambulatory aid Current Visit: Yes Status: Chronic (8) Arthritis of right knee Current Visit: Yes Status: Chronic (9) Hypertension Current Visit: Yes Status: Chronic Qualifiers: Hypertension type: essential hypertension Qualified Code(s): I10 - Essential (primary) hypertension - Follow-up Referral Minutes to complete discharge: 30 - AMA Did Patient Leave Against Medical Advice: No Additional Comments: Pt reports he is able to follow up with primary care at [facility] for medical management.
[2019-08-19] MEDS: PRENATAL VITAMINS W/ FOLIC ACID TABLET (FP) PO SCH (09:46)
[2019-08-19] MEDS: NICOTINE 7 MG/24 HOURS TOPICAL PATCH TD SCH (09:47)
[2019-08-19] MEDS: QUEtiapine FUMARATE 50 MG TABLET PO SCH (09:47)
== END 2019-08-19 10:05 | disposition home or self-care (01) | DRG 772 ==
LOC: YASAS 11:13 → Y3E 11:16
PROVIDERS: ADMIT Allergy & Immunology; ATTEND Allergy & Immunology
PROC: HZ42ZZZ Group Counseling for Substance Abuse Treatment, Cognitive-Behavioral (ICD-10-PCS; principal; 2019-08-05)
DX: F10.20 Alcohol dependence, uncomplicated (principal); F14.20 Cocaine dependence, uncomplicated; F17.210 Nicotine dependence, cigarettes, uncomplicated; F31.9 Bipolar disorder, unspecified; G47.00 Insomnia, unspecified; I10 Essential (primary) hypertension; E78.00 Pure hypercholesterolemia, unspecified; J45.909 Unspecified asthma, uncomplicated; K21.9 Gastro-esophageal reflux disease without esophagitis; M17.11 Unilateral primary osteoarthritis, right knee; N40.0 Benign prostatic hyperplasia without lower urinary tract symptoms; D64.9 Anemia, unspecified; B19.10 Unspecified viral hepatitis B without hepatic coma; R73.03 Prediabetes; Z86.19 Personal history of other infectious and parasitic diseases; Z98.890 Other specified postprocedural states; Z99.89 Dependence on other enabling machines and devices; Z56.0 Unemployment, unspecified; Z59.0 Homelessness; Z88.8 Allergy status to other drugs, medicaments and biological substances; Z91.018 Allergy to other foods; Z91.013 Allergy to seafood
CPT/HCPCS: 82962; 83036

== ENCOUNTER 2021-06-03 13:33 | Inpatient (IN) | payer OTHER ==
[2021-06-03] MEDS ORDERED: METHOCARBAMOL 500 MG TABLET PO PRN (15:06)
[2021-06-03] MEDS ORDERED: NICOTINE 10 MG CARTRIDGE (INHALER) IH PRN (15:06)
[2021-06-03] MEDS ORDERED: ONDANSETRON *ODT* 4 MG TABLET SL PRN (15:06)
[2021-06-03] MEDS ORDERED: LOPERAMIDE HCL 2 MG CAPSULE PO PRN (15:06)
[2021-06-03] MEDS ORDERED: MAGNESIUM CITRATE 300 ML BOTTLE PO PRN (15:06)
[2021-06-03] MEDS ORDERED: MAG HYDROX/AL HYDROX/SIMETH 30 ML UNIT-DOSE CUP PO PRN (15:06)
[2021-06-03] MEDS ORDERED: DICYCLOMINE HCL 10 MG CAPSULE PO PRN (15:06)
[2021-06-03] MEDS ORDERED: MAGNESIUM HYDROX 2400MG/30ML ORAL SUSPENSION 30 ML CUP PO PRN (15:06)
[2021-06-03] MEDS ORDERED: ACETAMINOPHEN 325 MG TABLET (FP) PO PRN ×2 (15:06)
[2021-06-03] MEDS ORDERED: BISMUTH SUBSALICYLATE 262 MG/15 ML BTL PO PRN (15:06)
[2021-06-03] MEDS ORDERED: IBUPROFEN 400 MG TABLET (FP) PO PRN (15:06)
[2021-06-03] MEDS ORDERED: LORazepam 1 MG TABLET PO PRN (15:06)
[2021-06-03] MEDS ORDERED: BENZOCAINE/MENTHOL (CHLORASEPTIC ) LOZENGE MM PRN (15:06)
[2021-06-03] MEDS ORDERED: ALBUTEROL SO4 HFA INHALER IH PRN (15:11)
[2021-06-03 15:28] VITALS: BMI 22.8
[2021-06-03] MEDS ORDERED: PNEUMOC 13-VAL CONJ-DIP CRM/PF 0.5 ML DISP.SYRIN IM ONE (17:49)
[2021-06-03] MEDS: LORazepam 2 MG TABLET PO SCH ×2 (19:24→22:44)
[2021-06-03] MEDS: PRENATAL VITAMINS W/ FOLIC ACID TABLET (FP) PO SCH (19:29)
[2021-06-03] MEDS: hydrOXYzine PAMOATE 25 MG CAPSULE (FP) PO SCH ×2 (19:29→23:44)
[2021-06-03] MEDS: THIAMINE HCL 100 MG TABLET (FP) PO SCH (22:44)
[2021-06-03] MEDS: MELATONIN 5 MG TABLETS PO SCH (22:45)
[2021-06-04] MEDS: hydrOXYzine PAMOATE 25 MG CAPSULE (FP) PO SCH ×5 (05:27→22:27)
[2021-06-04] MEDS: LORazepam 2 MG TABLET PO SCH ×4 (05:27→22:15)
[2021-06-04] MEDS: PRENATAL VITAMINS W/ FOLIC ACID TABLET (FP) PO SCH (10:59)
[2021-06-04 11:07] LABS: HEMATOCRIT 40.1 % (35.4-49); HEMOGLOBIN 13.5 GM/dL (11.7-16.9); MCH 31.6 pg (25.7-33.7); MCHC 33.8 g/dl (32.0-35.9); MEAN CELL VOLUME 93.7 fl (80-96); MEAN PLT VOLUME 8.6 fl (7.5-11.1); PLATELET COUNT 250 10^3/uL (134-434); RBC 4.28 M/mm3 (4.00-5.60); RDW 12.6 % (11.9-15.9); WHITE BLOOD COUNT 5.9 K/mm3 (4.0-10.0)
[2021-06-04 11:31] LABS: ALBUMIN 3.2 g/dl (3.4-5.0); BLOOD UREA NITROGEN 11.5 mg/dL (7-18); CALCIUM 8.4 mg/dL (8.5-10.1)
[2021-06-04 11:34] LABS: CREATININE 0.9 mg/dL (0.55-1.3)
[2021-06-04 11:35] LABS: BILIRUBIN,TOTAL 0.5 mg/dL (0.2-1); TOT PROT 5.8 g/dl (6.4-8.2)
[2021-06-04] MEDS: QUEtiapine FUMARATE 100 MG TABLET (FP) PO SCH (22:14)
[2021-06-04] MEDS: THIAMINE HCL 100 MG TABLET (FP) PO SCH (22:14)
[2021-06-04] MEDS: MELATONIN 5 MG TABLETS PO SCH (22:27)
[2021-06-05] MEDS: hydrOXYzine PAMOATE 25 MG CAPSULE (FP) PO SCH ×5 (05:13→22:07)
[2021-06-05] MEDS: LORazepam 1 MG TABLET PO SCH ×4 (05:13→22:08)
[2021-06-05] MEDS: PRENATAL VITAMINS W/ FOLIC ACID TABLET (FP) PO SCH (10:40)
[2021-06-05 17:06] LABS: SARS-CoV-2 NAA Not Detected (Not Detected)
[2021-06-05] MEDS ORDERED: PANTOPRAZOLE 20 MG TABLET PO ONE (19:15)
[2021-06-05] MEDS: THIAMINE HCL 100 MG TABLET (FP) PO SCH (22:06)
[2021-06-05] MEDS: MELATONIN 5 MG TABLETS PO SCH (22:06)
[2021-06-05] MEDS: QUEtiapine FUMARATE 100 MG TABLET (FP) PO SCH (22:06)
[2021-06-06] MEDS ORDERED: LORazepam 0.5 MG TABLET PO PRN
[2021-06-06] MEDS: hydrOXYzine PAMOATE 25 MG CAPSULE (FP) PO SCH ×6 (05:48→22:18)
[2021-06-06] MEDS: LORazepam 0.5 MG TABLET PO SCH ×4 (05:49→22:13)
[2021-06-06] MEDS: PANTOPRAZOLE 20 MG TABLET PO SCH (10:47)
[2021-06-06] MEDS: PRENATAL VITAMINS W/ FOLIC ACID TABLET (FP) PO SCH (10:47)
[2021-06-06] MEDS: QUEtiapine FUMARATE 100 MG TABLET (FP) PO SCH (22:13)
[2021-06-06] MEDS: THIAMINE HCL 100 MG TABLET (FP) PO SCH (22:13)
[2021-06-06] MEDS: MELATONIN 5 MG TABLETS PO SCH (22:14)
[2021-06-07] MEDS ORDERED: LORazepam 0.5 MG TABLET PO ONE (05:00)
[2021-06-07] MEDS: hydrOXYzine PAMOATE 25 MG CAPSULE (FP) PO SCH ×2 (05:12→10:35)
[2021-06-07 09:06] VITALS: BP 144/89; PULSE 85; TEMP 97.5
[2021-06-07] MEDS: PRENATAL VITAMINS W/ FOLIC ACID TABLET (FP) PO SCH (10:35)
[2021-06-07] MEDS: PANTOPRAZOLE 20 MG TABLET PO SCH (10:35)
== END 2021-06-07 12:25 | disposition other institution (70) | DRG 774 ==
LOC: YASAS 13:33 → Y6N 16:38
PROVIDERS: ADMIT Allergy & Immunology; ATTEND Allergy & Immunology
PROC: HZ2ZZZZ Detoxification Services for Substance Abuse Treatment (ICD-10-PCS; principal; 2021-06-03)
DX: F10.230 Alcohol dependence with withdrawal, uncomplicated (principal); F14.20 Cocaine dependence, uncomplicated; F17.210 Nicotine dependence, cigarettes, uncomplicated; F19.282 Other psychoactive substance dependence with psychoactive substance-induced sleep disorder; F19.24 Other psychoactive substance dependence with psychoactive substance-induced mood disorder; F31.9 Bipolar disorder, unspecified; F41.9 Anxiety disorder, unspecified; I10 Essential (primary) hypertension; B18.1 Chronic viral hepatitis B without delta-agent; N40.0 Benign prostatic hyperplasia without lower urinary tract symptoms; R63.4 Abnormal weight loss; Z68.22 Body mass index [BMI] 22.0-22.9, adult; Z28.310 Unvaccinated for COVID-19; Z86.19 Personal history of other infectious and parasitic diseases; Z99.89 Dependence on other enabling machines and devices; Z88.8 Allergy status to other drugs, medicaments and biological substances; Z91.018 Allergy to other foods
CPT/HCPCS: 36415; 71046-TC-FY; 80053; 82947; 83036; 85027; 86780; C9803-CS; U0003; U0005

== ENCOUNTER 2021-06-07 12:26 | Inpatient (IN) | payer OTHER ==
[2021-06-07] MEDS ORDERED: P-EPHED 60MG/TRIPROLIDI 2.5MG TABLET PO PRN (13:12)
[2021-06-07] MEDS ORDERED: LOPERAMIDE HCL 2 MG CAPSULE PO PRN (13:12)
[2021-06-07] MEDS ORDERED: MAGNESIUM CITRATE 300 ML BOTTLE PO PRN (13:12)
[2021-06-07] MEDS ORDERED: MAG HYDROX/AL HYDROX/SIMETH 30 ML UNIT-DOSE CUP PO PRN (13:12)
[2021-06-07] MEDS ORDERED: MAGNESIUM HYDROX 2400MG/30ML ORAL SUSPENSION 30 ML CUP PO PRN (13:12)
[2021-06-07] MEDS ORDERED: hydrOXYzine PAMOATE 25 MG CAPSULE (FP) PO PRN (13:12)
[2021-06-07] MEDS ORDERED: BENZOCAINE/MENTHOL (CHLORASEPTIC ) LOZENGE MM PRN (13:12)
[2021-06-07] MEDS ORDERED: IBUPROFEN 400 MG TABLET (FP) PO PRN (13:12)
[2021-06-07] MEDS ORDERED: ACETAMINOPHEN 325 MG TABLET (FP) PO PRN (13:12)
[2021-06-07] MEDS ORDERED: guaiFENesin 200 MG/10 ML 10 ML UNIT-DOSE CUPS PO PRN (13:12)
[2021-06-07] MEDS ORDERED: NICOTINE POLACRILEX 2 MG GUM BUC PRN (13:12)
[2021-06-07] MEDS ORDERED: ALBUTEROL SO4 HFA INHALER IH PRN (13:14)
[2021-06-07] MEDS: THIAMINE HCL 100 MG TABLET (FP) PO SCH (21:20)
[2021-06-07] MEDS: QUEtiapine FUMARATE 100 MG TABLET (FP) PO SCH (21:21)
[2021-06-07] MEDS: MELATONIN 5 MG TABLETS PO SCH (21:21)
[2021-06-08] MEDS: PRENATAL VITAMINS W/ FOLIC ACID TABLET (FP) PO SCH (09:48)
[2021-06-08] MEDS ORDERED: PANTOPRAZOLE 20 MG TABLET PO SCH (10:00)
[2021-06-08] MEDS: THIAMINE HCL 100 MG TABLET (FP) PO SCH (21:19)
[2021-06-08] MEDS: QUEtiapine FUMARATE 100 MG TABLET (FP) PO SCH (21:19)
[2021-06-08] MEDS: PANTOPRAZOLE 20 MG TABLET PO SCH (21:19)
[2021-06-08] MEDS: MELATONIN 5 MG TABLETS PO SCH (21:19)
[2021-06-09] MEDS: PRENATAL VITAMINS W/ FOLIC ACID TABLET (FP) PO SCH (09:34)
[2021-06-09] MEDS: MELATONIN 5 MG TABLETS PO SCH (21:01)
[2021-06-09] MEDS: THIAMINE HCL 100 MG TABLET (FP) PO SCH (21:01)
[2021-06-09] MEDS: PANTOPRAZOLE 20 MG TABLET PO SCH (21:01)
[2021-06-09] MEDS: QUEtiapine FUMARATE 100 MG TABLET (FP) PO SCH (21:02)
[2021-06-10] MEDS: PRENATAL VITAMINS W/ FOLIC ACID TABLET (FP) PO SCH (09:33)
[2021-06-10] MEDS: PANTOPRAZOLE 20 MG TABLET PO SCH (21:14)
[2021-06-10] MEDS: THIAMINE HCL 100 MG TABLET (FP) PO SCH (21:14)
[2021-06-10] MEDS: MELATONIN 5 MG TABLETS PO SCH (21:14)
[2021-06-10] MEDS: QUEtiapine FUMARATE 100 MG TABLET (FP) PO SCH (21:14)
[2021-06-11] MEDS: PRENATAL VITAMINS W/ FOLIC ACID TABLET (FP) PO SCH (09:56)
[2021-06-11 10:08] LABS: SARS-CoV-2 NAA Not Detected (Not Detected)
[2021-06-11] MEDS: THIAMINE HCL 100 MG TABLET (FP) PO SCH (21:20)
[2021-06-11] MEDS: MELATONIN 5 MG TABLETS PO SCH (21:20)
[2021-06-11] MEDS: PANTOPRAZOLE 20 MG TABLET PO SCH (21:20)
[2021-06-11] MEDS: QUEtiapine FUMARATE 100 MG TABLET (FP) PO SCH (21:21)
[2021-06-12] MEDS: PRENATAL VITAMINS W/ FOLIC ACID TABLET (FP) PO SCH (10:02)
[2021-06-12] MEDS ORDERED: QUEtiapine FUMARATE 50 MG TABLET PO SCH (12:45)
[2021-06-12] MEDS: THIAMINE HCL 100 MG TABLET (FP) PO SCH (21:40)
[2021-06-12] MEDS: MELATONIN 5 MG TABLETS PO SCH (21:40)
[2021-06-12] MEDS: PANTOPRAZOLE 20 MG TABLET PO SCH (21:41)
[2021-06-12] MEDS: QUEtiapine FUMARATE 50 MG TABLET PO PRN (21:41)
[2021-06-12] MEDS: QUEtiapine FUMARATE 100 MG TABLET (FP) PO SCH (21:42)
[2021-06-13] MEDS: PRENATAL VITAMINS W/ FOLIC ACID TABLET (FP) PO SCH (09:36)
[2021-06-13] MEDS: QUEtiapine FUMARATE 50 MG TABLET PO PRN (09:37)
[2021-06-13] MEDS: THIAMINE HCL 100 MG TABLET (FP) PO SCH (21:09)
[2021-06-13] MEDS: MELATONIN 5 MG TABLETS PO SCH (21:09)
[2021-06-13] MEDS: PANTOPRAZOLE 20 MG TABLET PO SCH (21:10)
[2021-06-13] MEDS: QUEtiapine FUMARATE 100 MG TABLET (FP) PO SCH (21:10)
[2021-06-14] MEDS: PRENATAL VITAMINS W/ FOLIC ACID TABLET (FP) PO SCH (09:42)
[2021-06-14] MEDS: QUEtiapine FUMARATE 50 MG TABLET PO PRN (09:43)
[2021-06-14] MEDS: MELATONIN 5 MG TABLETS PO SCH (21:30)
[2021-06-14] MEDS: PANTOPRAZOLE 20 MG TABLET PO SCH (21:30)
[2021-06-14] MEDS: THIAMINE HCL 100 MG TABLET (FP) PO SCH (21:30)
[2021-06-14] MEDS: QUEtiapine FUMARATE 100 MG TABLET (FP) PO SCH (21:30)
[2021-06-15] MEDS: QUEtiapine FUMARATE 50 MG TABLET PO PRN (10:07)
[2021-06-15] MEDS: PRENATAL VITAMINS W/ FOLIC ACID TABLET (FP) PO SCH (11:01)
[2021-06-15] MEDS: THIAMINE HCL 100 MG TABLET (FP) PO SCH (21:30)
[2021-06-15] MEDS: MELATONIN 5 MG TABLETS PO SCH (21:30)
[2021-06-15] MEDS: QUEtiapine FUMARATE 100 MG TABLET (FP) PO SCH (21:30)
[2021-06-15] MEDS: PANTOPRAZOLE 20 MG TABLET PO SCH (21:30)
[2021-06-16] MEDS: PRENATAL VITAMINS W/ FOLIC ACID TABLET (FP) PO SCH (09:34)
[2021-06-16] MEDS: QUEtiapine FUMARATE 100 MG TABLET (FP) PO SCH (21:25)
[2021-06-16] MEDS: THIAMINE HCL 100 MG TABLET (FP) PO SCH (21:25)
[2021-06-16] MEDS: PANTOPRAZOLE 20 MG TABLET PO SCH (21:25)
[2021-06-16] MEDS: MELATONIN 5 MG TABLETS PO SCH (21:26)
[2021-06-17] MEDS: PRENATAL VITAMINS W/ FOLIC ACID TABLET (FP) PO SCH (09:44)
[2021-06-17] MEDS: THIAMINE HCL 100 MG TABLET (FP) PO SCH (21:29)
[2021-06-17] MEDS: QUEtiapine FUMARATE 100 MG TABLET (FP) PO SCH (21:29)
[2021-06-17] MEDS: MELATONIN 5 MG TABLETS PO SCH (21:29)
[2021-06-17] MEDS: PANTOPRAZOLE 20 MG TABLET PO SCH (21:29)
[2021-06-18] MEDS: PRENATAL VITAMINS W/ FOLIC ACID TABLET (FP) PO SCH (10:03)
[2021-06-18] MEDS: MELATONIN 5 MG TABLETS PO SCH (21:09)
[2021-06-18] MEDS: THIAMINE HCL 100 MG TABLET (FP) PO SCH (21:09)
[2021-06-18] MEDS: QUEtiapine FUMARATE 100 MG TABLET (FP) PO SCH (21:09)
[2021-06-18] MEDS: PANTOPRAZOLE 20 MG TABLET PO SCH (21:09)
[2021-06-19] MEDS: PRENATAL VITAMINS W/ FOLIC ACID TABLET (FP) PO SCH (09:08)
[2021-06-19] MEDS: PANTOPRAZOLE 20 MG TABLET PO SCH (21:18)
[2021-06-19] MEDS: MELATONIN 5 MG TABLETS PO SCH (21:18)
[2021-06-19] MEDS: QUEtiapine FUMARATE 100 MG TABLET (FP) PO SCH (21:18)
[2021-06-19] MEDS: THIAMINE HCL 100 MG TABLET (FP) PO SCH (21:18)
[2021-06-20] MEDS: PRENATAL VITAMINS W/ FOLIC ACID TABLET (FP) PO SCH (09:37)
[2021-06-20] MEDS: THIAMINE HCL 100 MG TABLET (FP) PO SCH (21:22)
[2021-06-20] MEDS: MELATONIN 5 MG TABLETS PO SCH (21:22)
[2021-06-20] MEDS: PANTOPRAZOLE 20 MG TABLET PO SCH (21:22)
[2021-06-20] MEDS: QUEtiapine FUMARATE 100 MG TABLET (FP) PO SCH (21:22)
[2021-06-21 09:20] VITALS: BP 138/75; PULSE 107; TEMP 97.5
[2021-06-21] MEDS: PRENATAL VITAMINS W/ FOLIC ACID TABLET (FP) PO SCH (10:21)
== END 2021-06-21 10:23 | disposition home or self-care (01) | DRG 774 ==
LOC: YASAS 12:26 → Y3E 12:27
PROVIDERS: ADMIT Allergy & Immunology; ATTEND Allergy & Immunology
PROC: HZ2ZZZZ Detoxification Services for Substance Abuse Treatment (ICD-10-PCS; principal; 2021-06-07)
DX: F10.20 Alcohol dependence, uncomplicated (principal); F14.20 Cocaine dependence, uncomplicated; F17.210 Nicotine dependence, cigarettes, uncomplicated; I10 Essential (primary) hypertension; J45.909 Unspecified asthma, uncomplicated; K21.9 Gastro-esophageal reflux disease without esophagitis; R73.03 Prediabetes; Z20.822 Contact with and (suspected) exposure to COVID-19; Z28.310 Unvaccinated for COVID-19; Z88.8 Allergy status to other drugs, medicaments and biological substances; Z91.018 Allergy to other foods
CPT/HCPCS: C9803-CS; U0003; U0005

== ENCOUNTER 2022-08-25 13:55 | Inpatient (IN) | payer OTHER ==
[2022-08-25 14:57] VITALS: BMI 21.4
[2022-08-25] MEDS ORDERED: POLYETHYLENE GLYCOL (HEALTHYLAX) 3350 17 GM PACKET PO PRN (16:51)
[2022-08-25] MEDS ORDERED: hydrOXYzine PAMOATE 25 MG CAPSULE (FP) PO PRN (16:51)
[2022-08-25] MEDS ORDERED: COLLOIDAL OATMEAL 1 BAR EACH TP PRN (16:51)
[2022-08-25] MEDS ORDERED: LOPERAMIDE HCL 2 MG CAPSULE PO PRN (16:51)
[2022-08-25] MEDS ORDERED: MAGNESIUM HYDROX 2400MG/30ML ORAL SUSPENSION 30 ML CUP PO PRN (16:51)
[2022-08-25] MEDS ORDERED: guaiFENesin 600 MG TABLET.ER (FP) PO PRN (16:51)
[2022-08-25] MEDS ORDERED: NALOXONE HCL 0.4 MG/ML VIAL IM PRN (16:51)
[2022-08-25] MEDS ORDERED: MAG HYDROX/AL HYDROX/SIMETH 30 ML UNIT-DOSE CUP PO PRN (16:51)
[2022-08-25] MEDS ORDERED: IBUPROFEN 600 MG TABLET (FP) PO PRN (16:51)
[2022-08-25] MEDS ORDERED: ACETAMINOPHEN 325 MG TABLET (FP) PO PRN (16:51)
[2022-08-25] MEDS ORDERED: BENZOCAINE/MENTHOL (CHLORASEPTIC ) LOZENGE MM PRN (16:51)
[2022-08-25] MEDS ORDERED: BENZONATATE 200 MG CAPSULE PO PRN (16:51)
[2022-08-25] MEDS ORDERED: IBUPROFEN 400 MG TABLET (FP) PO PRN (16:51)
[2022-08-25] MEDS ORDERED: AMMONIUM LACTATE 12% LOTION 225 GM BOTTLE TP PRN (16:51)
[2022-08-25] MEDS ORDERED: NALOXONE HCL (KLOXXADO) 8 MG SPRAY NS PRN (16:51)
[2022-08-25] MEDS ORDERED: ALBUTEROL SO4 HFA INHALER IH PRN (18:43)
[2022-08-25] MEDS: MELATONIN 5 MG TABLETS PO SCH (21:34)
[2022-08-25] MEDS: THIAMINE HCL 100 MG TABLET (FP) PO SCH (21:34)
[2022-08-25] MEDS ORDERED: MELATONIN 5 MG TABLETS PO SCH (22:00)
[2022-08-26 09:02] LABS: HEMATOCRIT 43.5 % (35.4-49); HEMOGLOBIN 14.7 GM/dL (11.7-16.9); MCH 31.9 pg (25.7-33.7); MCHC 33.6 g/dl (32.0-35.9); MEAN CELL VOLUME 94.8 fl (80-96); MEAN PLT VOLUME 9.9 fl (7.5-11.1); PLATELET COUNT 274 10^3/uL (134-434); RBC 4.59 M/mm3 (4.00-5.60); RDW 12.2 % (11.9-15.9); WHITE BLOOD COUNT 7.9 K/mm3 (4.0-10.0)
[2022-08-26 09:31] LABS: POTASSIUM 4.2 mmol/L (3.5-5.1)
[2022-08-26 09:34] LABS: ALBUMIN 3.6 g/dl (3.4-5.0); BLOOD UREA NITROGEN 11.8 mg/dL (7-18)
[2022-08-26] MEDS: QUEtiapine FUMARATE 50 MG TABLET PO SCH (09:35)
[2022-08-26] MEDS: PRENATAL VITAMINS W/ FOLIC ACID TABLET (FP) PO SCH (09:35)
[2022-08-26 09:36] LABS: CREATININE 0.9 mg/dL (0.55-1.3)
[2022-08-26 09:38] LABS: BILIRUBIN,TOTAL 0.4 mg/dL (0.2-1); TOT PROT 6.7 g/dl (6.4-8.2)
[2022-08-26 11:32] LABS: SYPHILIS W/ RPR CONF NON-REACTIVE (NONREACTIVE)
[2022-08-26 13:56] LABS: PH,URINE 5.5 (5.0-8.0); URINE APPEARANCE CLEAR; URINE BILIRUBIN NEGATIVE (NEGATIVE); URINE COLOR YELLOW; URINE GLUCOSE (UA) NEGATIVE (NEGATIVE); URINE KETONE NEGATIVE (NEGATIVE); URINE LEUK ESTERASE NEGATIVE (NEGATIVE); URINE NITRITE NEGATIVE (NEGATIVE); URINE PROTEIN NEGATIVE (NEGATIVE); URINE UROBILINOGEN 0.2 mg/dL (0.2-1.0)
[2022-08-26] MEDS: THIAMINE HCL 100 MG TABLET (FP) PO SCH (21:24)
[2022-08-26] MEDS: PANTOPRAZOLE 20 MG TABLET PO SCH (21:25)
[2022-08-26] MEDS: QUEtiapine FUMARATE 100 MG TABLET (FP) PO SCH (21:25)
[2022-08-26] MEDS: MELATONIN 5 MG TABLETS PO SCH (21:26)
[2022-08-27] MEDS: QUEtiapine FUMARATE 50 MG TABLET PO SCH (10:01)
[2022-08-27] MEDS: PRENATAL VITAMINS W/ FOLIC ACID TABLET (FP) PO SCH (10:01)
[2022-08-27] MEDS: PANTOPRAZOLE 20 MG TABLET PO SCH (21:56)
[2022-08-27] MEDS: THIAMINE HCL 100 MG TABLET (FP) PO SCH (21:56)
[2022-08-27] MEDS: QUEtiapine FUMARATE 100 MG TABLET (FP) PO SCH (21:56)
[2022-08-27] MEDS: MELATONIN 5 MG TABLETS PO SCH (21:56)
[2022-08-28] MEDS: PRENATAL VITAMINS W/ FOLIC ACID TABLET (FP) PO SCH (10:11)
[2022-08-28] MEDS: QUEtiapine FUMARATE 50 MG TABLET PO SCH (10:11)
[2022-08-28] MEDS: MELATONIN 5 MG TABLETS PO SCH (21:39)
[2022-08-28] MEDS: QUEtiapine FUMARATE 100 MG TABLET (FP) PO SCH (21:40)
[2022-08-28] MEDS: THIAMINE HCL 100 MG TABLET (FP) PO SCH (21:40)
[2022-08-28] MEDS: PANTOPRAZOLE 20 MG TABLET PO SCH (21:40)
[2022-08-29] MEDS: PRENATAL VITAMINS W/ FOLIC ACID TABLET (FP) PO SCH (09:55)
[2022-08-29] MEDS: QUEtiapine FUMARATE 50 MG TABLET PO SCH (09:55)
[2022-08-29] MEDS: PANTOPRAZOLE 20 MG TABLET PO SCH (21:21)
[2022-08-29] MEDS: THIAMINE HCL 100 MG TABLET (FP) PO SCH (21:21)
[2022-08-29] MEDS: MELATONIN 5 MG TABLETS PO SCH (21:21)
[2022-08-29] MEDS: QUEtiapine FUMARATE 100 MG TABLET (FP) PO SCH (21:21)
[2022-08-30] MEDS: PRENATAL VITAMINS W/ FOLIC ACID TABLET (FP) PO SCH (09:49)
[2022-08-30] MEDS: QUEtiapine FUMARATE 50 MG TABLET PO SCH (09:49)
[2022-08-30] MEDS: PANTOPRAZOLE 20 MG TABLET PO SCH (21:23)
[2022-08-30] MEDS: MELATONIN 5 MG TABLETS PO SCH (21:23)
[2022-08-30] MEDS: QUEtiapine FUMARATE 100 MG TABLET (FP) PO SCH (21:23)
[2022-08-30] MEDS: THIAMINE HCL 100 MG TABLET (FP) PO SCH (21:24)
[2022-08-31] MEDS: PRENATAL VITAMINS W/ FOLIC ACID TABLET (FP) PO SCH (09:26)
[2022-08-31] MEDS: QUEtiapine FUMARATE 50 MG TABLET PO SCH (09:27)
[2022-08-31] MEDS: QUEtiapine FUMARATE 100 MG TABLET (FP) PO SCH (21:19)
[2022-08-31] MEDS: MELATONIN 5 MG TABLETS PO SCH (21:19)
[2022-08-31] MEDS: PANTOPRAZOLE 20 MG TABLET PO SCH (21:20)
[2022-08-31] MEDS: THIAMINE HCL 100 MG TABLET (FP) PO SCH (21:20)
[2022-09-01] MEDS: PRENATAL VITAMINS W/ FOLIC ACID TABLET (FP) PO SCH (09:31)
[2022-09-01] MEDS: QUEtiapine FUMARATE 50 MG TABLET PO SCH ×2 (09:32→21:45)
[2022-09-01] MEDS: PANTOPRAZOLE 20 MG TABLET PO SCH (21:43)
[2022-09-01] MEDS: MELATONIN 5 MG TABLETS PO SCH (21:44)
[2022-09-01] MEDS: THIAMINE HCL 100 MG TABLET (FP) PO SCH (21:44)
[2022-09-02] MEDS: QUEtiapine FUMARATE 50 MG TABLET PO SCH ×2 (09:40→21:12)
[2022-09-02] MEDS: PRENATAL VITAMINS W/ FOLIC ACID TABLET (FP) PO SCH (09:40)
[2022-09-02] MEDS: MELATONIN 5 MG TABLETS PO SCH (21:12)
[2022-09-02] MEDS: PANTOPRAZOLE 20 MG TABLET PO SCH (21:13)
[2022-09-02] MEDS: THIAMINE HCL 100 MG TABLET (FP) PO SCH (21:13)
[2022-09-03] MEDS: PRENATAL VITAMINS W/ FOLIC ACID TABLET (FP) PO SCH ×2 (09:37→10:17)
[2022-09-03] MEDS: QUEtiapine FUMARATE 50 MG TABLET PO SCH ×2 (09:37→21:11)
[2022-09-03] MEDS: MELATONIN 5 MG TABLETS PO SCH (21:11)
[2022-09-03] MEDS: PANTOPRAZOLE 20 MG TABLET PO SCH (21:11)
[2022-09-03] MEDS: THIAMINE HCL 100 MG TABLET (FP) PO SCH (21:11)
[2022-09-04] MEDS: QUEtiapine FUMARATE 50 MG TABLET PO SCH ×2 (09:24→21:35)
[2022-09-04] MEDS: PRENATAL VITAMINS W/ FOLIC ACID TABLET (FP) PO SCH (09:24)
[2022-09-04] MEDS: THIAMINE HCL 100 MG TABLET (FP) PO SCH ×2 (21:07→21:35)
[2022-09-04] MEDS: PANTOPRAZOLE 20 MG TABLET PO SCH (21:35)
[2022-09-04] MEDS: MELATONIN 5 MG TABLETS PO SCH (21:35)
[2022-09-05 07:22] VITALS: PULSE 68
[2022-09-05] MEDS: QUEtiapine FUMARATE 50 MG TABLET PO SCH ×2 (09:42→21:05)
[2022-09-05] MEDS: PRENATAL VITAMINS W/ FOLIC ACID TABLET (FP) PO SCH (09:43)
[2022-09-05] MEDS: MELATONIN 5 MG TABLETS PO SCH (21:05)
[2022-09-05] MEDS: THIAMINE HCL 100 MG TABLET (FP) PO SCH (21:06)
[2022-09-05] MEDS: PANTOPRAZOLE 20 MG TABLET PO SCH (21:06)
[2022-09-06 07:22] VITALS: BP 99/60; RESP 16; TEMP 96.8
[2022-09-06] MEDS: PRENATAL VITAMINS W/ FOLIC ACID TABLET (FP) PO SCH (09:36)
[2022-09-06] MEDS: QUEtiapine FUMARATE 50 MG TABLET PO SCH (09:36)
== END 2022-09-06 14:15 | disposition home or self-care (01) | DRG 772 ==
LOC: YASAS 13:55 → Y5N 18:00
PROVIDERS: ADMIT Allergy & Immunology; ATTEND Psychiatry & Neurology Pain Medicine
PROC: HZ42ZZZ Group Counseling for Substance Abuse Treatment, Cognitive-Behavioral (ICD-10-PCS; principal; 2022-08-25)
DX: F10.20 Alcohol dependence, uncomplicated (principal); F14.20 Cocaine dependence, uncomplicated; F17.210 Nicotine dependence, cigarettes, uncomplicated; F31.9 Bipolar disorder, unspecified; F19.282 Other psychoactive substance dependence with psychoactive substance-induced sleep disorder; F19.24 Other psychoactive substance dependence with psychoactive substance-induced mood disorder; F41.9 Anxiety disorder, unspecified; I10 Essential (primary) hypertension; J45.909 Unspecified asthma, uncomplicated; K21.9 Gastro-esophageal reflux disease without esophagitis; N40.0 Benign prostatic hyperplasia without lower urinary tract symptoms; R73.03 Prediabetes; Z86.19 Personal history of other infectious and parasitic diseases; Z86.11 Personal history of tuberculosis; Z87.19 Personal history of other diseases of the digestive system; Z28.310 Unvaccinated for COVID-19; Z28.9 Immunization not carried out for unspecified reason; Z88.8 Allergy status to other drugs, medicaments and biological substances
CPT/HCPCS: 36415; 71046-TC-FY; 80053; 81003; 82962; 85027; 86780; 86803; 87635; 87811

== ENCOUNTER 2023-02-23 15:36 | Inpatient (IN) | payer OTHER ==
[2023-02-23 16:08] VITALS: BMI 19.2
[2023-02-23] MEDS ORDERED: BENZOCAINE/MENTHOL (CHLORASEPTIC ) LOZENGE MM PRN (17:02)
[2023-02-23] MEDS ORDERED: ONDANSETRON *ODT* 4 MG TABLET SL PRN (17:02)
[2023-02-23] MEDS ORDERED: ACETAMINOPHEN 325 MG TABLET (FP) PO PRN ×2 (17:02→17:04)
[2023-02-23] MEDS ORDERED: LOPERAMIDE HCL 2 MG CAPSULE PO PRN (17:02)
[2023-02-23] MEDS ORDERED: POLYETHYLENE GLYCOL (HEALTHYLAX) 3350 17 GM PACKET PO PRN (17:02)
[2023-02-23] MEDS ORDERED: MAG HYDROX/AL HYDROX/SIMETH 30 ML UNIT-DOSE CUP PO PRN (17:02)
[2023-02-23] MEDS ORDERED: guaiFENesin 600 MG TABLET.ER (FP) PO PRN (17:02)
[2023-02-23] MEDS ORDERED: MAGNESIUM HYDROX 2400MG/30ML ORAL SUSPENSION 30 ML CUP PO PRN (17:02)
[2023-02-23] MEDS ORDERED: DICYCLOMINE HCL 10 MG CAPSULE PO PRN (17:02)
[2023-02-23] MEDS ORDERED: P-EPHED 60MG/TRIPROLIDI 2.5MG TABLET PO PRN (17:02)
[2023-02-23] MEDS ORDERED: BENZONATATE 200 MG CAPSULE PO PRN (17:02)
[2023-02-23] MEDS ORDERED: METHOCARBAMOL 500 MG TABLET PO PRN (17:02)
[2023-02-23] MEDS: THIAMINE HCL 100 MG TABLET (FP) PO SCH (22:14)
[2023-02-23] MEDS: MELATONIN 5 MG TABLETS PO SCH (22:14)
[2023-02-24] MEDS ORDERED: LORazepam 1 MG TABLET PO PRN (09:44)
[2023-02-24] MEDS: PRENATAL VITAMINS W/ FOLIC ACID TABLET (FP) PO SCH (10:11)
[2023-02-24 10:56] LABS: HEMATOCRIT 39.9 % (35.4-49); HEMOGLOBIN 13.6 GM/dL (11.7-16.9); MCH 31.8 pg (25.7-33.7); MCHC 34.2 g/dl (32.0-35.9); MEAN CELL VOLUME 93.1 fl (80-96); PLATELET COUNT 246 10^3/uL (134-434); RBC 4.28 M/mm3 (4.00-5.60); RDW 12.7 % (11.9-15.9); WHITE BLOOD COUNT 6.5 K/mm3 (4.0-10.0)
[2023-02-24 11:00] LABS: CHLORIDE 106 mmol/L (98-107); POTASSIUM 3.9 mmol/L (3.5-5.1); SODIUM 139 mmol/L (136-145)
[2023-02-24] MEDS: LORazepam 2 MG TABLET PO SCH ×3 (11:03→22:09)
[2023-02-24 11:24] LABS: GLUCOSE,RANDOM 119 mg/dL (74-106)
[2023-02-24 11:30] LABS: CALCIUM 8.5 mg/dL (8.5-10.1)
[2023-02-24 11:31] LABS: ALBUMIN 3.1 g/dl (3.4-5.0); ANION GAP 7 mmol/L (4-13); CO2 26 mmol/L (21-32)
[2023-02-24 11:34] LABS: CREATININE 0.8 mg/dL (0.55-1.3); SGOT/AST 8 U/L (15-37); SGPT/ALT 17 U/L (13-61)
[2023-02-24 11:35] LABS: BILIRUBIN,TOTAL 0.4 mg/dL (0.2-1)
[2023-02-24 11:36] LABS: ALK PHOS 64 U/L (45-117)
[2023-02-24 11:37] LABS: TOT PROT 5.8 g/dl (6.4-8.2)
[2023-02-24] MEDS ORDERED: QUEtiapine FUMARATE 100 MG TABLET (FP) PO SCH (22:00)
[2023-02-24] MEDS: MELATONIN 5 MG TABLETS PO SCH (22:10)
[2023-02-24] MEDS: THIAMINE HCL 100 MG TABLET (FP) PO SCH (22:10)
[2023-02-25] MEDS: LORazepam 2 MG TABLET PO SCH ×2 (05:34→11:33)
[2023-02-25] MEDS: PRENATAL VITAMINS W/ FOLIC ACID TABLET (FP) PO SCH (10:55)
[2023-02-25] MEDS: LACTULOSE 20 GM/30 ML UDC (FOR ORAL USE ONLY) PO SCH ×2 (15:42→22:51)
[2023-02-25] MEDS: MELATONIN 5 MG TABLETS PO SCH (22:51)
[2023-02-25] MEDS: THIAMINE HCL 100 MG TABLET (FP) PO SCH (22:52)
[2023-02-26] MEDS ORDERED: LORazepam 1 MG TABLET PO SCH (05:00)
[2023-02-26] MEDS: LACTULOSE 20 GM/30 ML UDC (FOR ORAL USE ONLY) PO SCH ×3 (06:09→22:34)
[2023-02-26] MEDS: PRENATAL VITAMINS W/ FOLIC ACID TABLET (FP) PO SCH (10:20)
[2023-02-26] MEDS: MELATONIN 5 MG TABLETS PO SCH (22:34)
[2023-02-26] MEDS: THIAMINE HCL 100 MG TABLET (FP) PO SCH (22:34)
[2023-02-27] MEDS ORDERED: LORazepam 0.5 MG TABLET PO PRN
[2023-02-27] MEDS ORDERED: LORazepam 0.5 MG TABLET PO SCH (05:00)
[2023-02-27] MEDS: LACTULOSE 20 GM/30 ML UDC (FOR ORAL USE ONLY) PO SCH ×4 (05:53→21:41)
[2023-02-27] MEDS: PRENATAL VITAMINS W/ FOLIC ACID TABLET (FP) PO SCH (10:08)
[2023-02-27] MEDS: THIAMINE HCL 100 MG TABLET (FP) PO SCH (21:43)
[2023-02-27] MEDS: MELATONIN 5 MG TABLETS PO SCH (21:43)
[2023-02-27] MEDS ORDERED: MELATONIN 5 MG TABLETS PO ONE (21:50)
[2023-02-28] MEDS ORDERED: LORazepam 0.5 MG TABLET PO ONE (05:00)
[2023-02-28] MEDS: LACTULOSE 20 GM/30 ML UDC (FOR ORAL USE ONLY) PO SCH (05:43)
[2023-02-28 06:07] VITALS: RESP 16
[2023-02-28 09:49] VITALS: BP 116/74; PULSE 89; TEMP 97.9
[2023-02-28] MEDS: PRENATAL VITAMINS W/ FOLIC ACID TABLET (FP) PO SCH (10:48)
== END 2023-02-28 11:32 | disposition other institution (70) | DRG 774 ==
LOC: YASAS 15:36 → Y3N 17:48
PROVIDERS: ADMIT Allergy & Immunology; ATTEND Allergy & Immunology
PROC: HZ2ZZZZ Detoxification Services for Substance Abuse Treatment (ICD-10-PCS; principal; 2023-02-23)
DX: F10.230 Alcohol dependence with withdrawal, uncomplicated (principal); F14.20 Cocaine dependence, uncomplicated; F17.210 Nicotine dependence, cigarettes, uncomplicated; F31.9 Bipolar disorder, unspecified; F19.24 Other psychoactive substance dependence with psychoactive substance-induced mood disorder; F41.9 Anxiety disorder, unspecified; E72.20 Disorder of urea cycle metabolism, unspecified; I10 Essential (primary) hypertension; K21.9 Gastro-esophageal reflux disease without esophagitis; R41.82 Altered mental status, unspecified; R63.4 Abnormal weight loss; Z68.1 Body mass index [BMI] 19.9 or less, adult; Z28.310 Unvaccinated for COVID-19; Z28.9 Immunization not carried out for unspecified reason; Z87.11 Personal history of peptic ulcer disease; Z88.8 Allergy status to other drugs, medicaments and biological substances
CPT/HCPCS: 36415; 80053; 80307; 82140; 82962; 85027; 86780; 87635

== ENCOUNTER 2023-02-28 11:45 | Inpatient (IN) | payer OTHER ==
[2023-02-28 12:18] VITALS: BP 147/76; PULSE 76; RESP 17; TEMP 97.6
== END 2023-02-28 12:40 | disposition left against medical advice (07) | DRG 770 ==
LOC: YASAS 11:45 → Y3E 11:46
PROVIDERS: ADMIT Allergy & Immunology; ATTEND Psychiatry & Neurology Pain Medicine
PROC: HZ42ZZZ Group Counseling for Substance Abuse Treatment, Cognitive-Behavioral (ICD-10-PCS; principal; 2023-02-28)
DX: F10.20 Alcohol dependence, uncomplicated (principal); F17.210 Nicotine dependence, cigarettes, uncomplicated; F31.9 Bipolar disorder, unspecified; I10 Essential (primary) hypertension; J45.909 Unspecified asthma, uncomplicated; K21.9 Gastro-esophageal reflux disease without esophagitis; E78.00 Pure hypercholesterolemia, unspecified

== ENCOUNTER 2023-06-12 13:25 | Inpatient (IN) | payer OTHER ==
[2023-06-12 13:39] VITALS: BMI 23.0
[2023-06-12] MEDS ORDERED: IBUPROFEN 600 MG TABLET (FP) PO PRN (14:06)
[2023-06-12] MEDS ORDERED: IBUPROFEN 400 MG TABLET (FP) PO PRN (14:06)
[2023-06-12] MEDS ORDERED: NALOXONE HCL 0.4 MG/ML VIAL IM PRN (14:06)
[2023-06-12] MEDS ORDERED: NALOXONE HCL (KLOXXADO) 8 MG SPRAY NS PRN (14:06)
[2023-06-12] MEDS ORDERED: BISMUTH SUBSALICYLATE 524 MG/30 ML PO PRN (14:06)
[2023-06-12] MEDS ORDERED: DICYCLOMINE HCL 10 MG CAPSULE PO PRN (14:06)
[2023-06-12] MEDS ORDERED: guaiFENesin 600 MG TABLET.ER (FP) PO PRN (14:06)
[2023-06-12] MEDS ORDERED: NICOTINE POLACRILEX 2 MG LOZENGE BC PRN (14:06)
[2023-06-12] MEDS ORDERED: ONDANSETRON *ODT* 4 MG TABLET SL PRN (14:06)
[2023-06-12] MEDS ORDERED: hydrOXYzine PAMOATE 25 MG CAPSULE (FP) PO PRN (14:06)
[2023-06-12] MEDS ORDERED: POLYETHYLENE GLYCOL (HEALTHYLAX) 3350 17 GM PACKET PO PRN (14:06)
[2023-06-12] MEDS ORDERED: METHOCARBAMOL 500 MG TABLET PO PRN (14:06)
[2023-06-12] MEDS ORDERED: ACETAMINOPHEN 325 MG TABLET (FP) PO PRN (14:06)
[2023-06-12] MEDS ORDERED: LOPERAMIDE HCL 2 MG CAPSULE PO PRN (14:06)
[2023-06-12] MEDS ORDERED: MAGNESIUM HYDROX 2400MG/30ML ORAL SUSPENSION 30 ML CUP PO PRN (14:06)
[2023-06-12] MEDS ORDERED: MAG HYDROX/AL HYDROX/SIMETH 30 ML UNIT-DOSE CUP PO PRN (14:06)
[2023-06-12] MEDS ORDERED: BENZONATATE 200 MG CAPSULE PO PRN (14:06)
[2023-06-12] MEDS ORDERED: LORazepam 1 MG TABLET PO PRN (14:06)
[2023-06-12] MEDS ORDERED: BENZOCAINE/MENTHOL (CHLORASEPTIC ) LOZENGE MM PRN (14:06)
[2023-06-12] MEDS ORDERED: ALBUTEROL SO4 HFA INHALER IH PRN (14:08)
[2023-06-12] MEDS ORDERED: PRENATAL VITAMINS W/ FOLIC ACID TABLET (FP) PO ONE (15:04)
[2023-06-12] MEDS: PRENATAL VITAMINS W/ FOLIC ACID TABLET (FP) PO SCH (15:06)
[2023-06-12] MEDS: LORazepam 2 MG TABLET PO SCH (17:36)
[2023-06-12] MEDS: PANTOPRAZOLE 20 MG TABLET PO SCH (22:22)
[2023-06-12] MEDS: THIAMINE 100 MG TABLET PO SCH (22:22)
[2023-06-12] MEDS: QUEtiapine FUMARATE 50 MG TABLET PO SCH (22:22)
[2023-06-12] MEDS: QUEtiapine FUMARATE 100 MG TABLET (FP) PO SCH (22:22)
[2023-06-12] MEDS: MELATONIN 5 MG TABLETS PO SCH (22:23)
[2023-06-13] MEDS: INSULIN ASPART SLIDING SCALE (NOVOLOG) 1 VIAL SQ SCH (06:52)
[2023-06-13 11:59] LABS: HEMATOCRIT 39.1 % (35.4-49); HEMOGLOBIN 13.5 GM/dL (11.7-16.9); MCH 32.2 pg (25.7-33.7); MCHC 34.5 g/dl (32.0-35.9); MEAN CELL VOLUME 93.3 fl (80-96); PLATELET COUNT 257 10^3/uL (134-434); RBC 4.19 M/mm3 (4.00-5.60); RDW 12.7 % (11.9-15.9); WHITE BLOOD COUNT 5.2 K/mm3 (4.0-10.0)
[2023-06-13 13:15] LABS: ALBUMIN 3.1 g/dl (3.4-5.0); ALK PHOS 69 U/L (45-117); ANION GAP 5 mmol/L (4-13); BILIRUBIN,TOTAL 0.4 mg/dL (0.2-1); BLOOD UREA NITROGEN 17.9 mg/dL (7-18); CALCIUM 8.4 mg/dL (8.5-10.1); CHLORIDE 109 mmol/L (98-107); CO2 25 mmol/L (21-32); GLUCOSE,RANDOM 131 mg/dL (74-106); SGOT/AST 10 U/L (15-37); SGPT/ALT 14 U/L (13-61); SODIUM 139 mmol/L (136-145); TOT PROT 5.6 g/dl (6.4-8.2)
[2023-06-14] MEDS: LORazepam 1 MG TABLET PO SCH (05:15)
[2023-06-14] MEDS: LACTULOSE 20 GM/30 ML UDC (FOR ORAL USE ONLY) PO SCH (13:02)
[2023-06-15] MEDS ORDERED: LORazepam 0.5 MG TABLET PO PRN
[2023-06-15] MEDS: LORazepam 0.5 MG TABLET PO SCH (05:35)
[2023-06-16] MEDS: LORazepam 0.5 MG TABLET PO ONE (05:57)
[2023-06-16 08:51] VITALS: RESP 18
[2023-06-16 12:48] VITALS: BP 106/61; PULSE 66; TEMP 97.8
== END 2023-06-16 13:45 | disposition other institution (70) | DRG 774 ==
LOC: YASAS 13:25 → Y6N 14:19
PROVIDERS: ADMIT Allergy & Immunology; ATTEND Surgery
PROC: HZ2ZZZZ Detoxification Services for Substance Abuse Treatment (ICD-10-PCS; principal; 2023-06-12)
DX: F10.230 Alcohol dependence with withdrawal, uncomplicated (principal); F14.20 Cocaine dependence, uncomplicated; F16.10 Hallucinogen abuse, uncomplicated; F17.213 Nicotine dependence, cigarettes, with withdrawal; F19.94 Other psychoactive substance use, unspecified with psychoactive substance-induced mood disorder; F19.982 Other psychoactive substance use, unspecified with psychoactive substance-induced sleep disorder; I10 Essential (primary) hypertension; E11.9 Type 2 diabetes mellitus without complications; K21.9 Gastro-esophageal reflux disease without esophagitis; J45.909 Unspecified asthma, uncomplicated; E72.20 Disorder of urea cycle metabolism, unspecified; N40.0 Benign prostatic hyperplasia without lower urinary tract symptoms; D57.3 Sickle-cell trait; E78.5 Hyperlipidemia, unspecified; B18.1 Chronic viral hepatitis B without delta-agent; M19.90 Unspecified osteoarthritis, unspecified site; Z79.4 Long term (current) use of insulin; Z86.11 Personal history of tuberculosis; Z86.19 Personal history of other infectious and parasitic diseases; Z28.310 Unvaccinated for COVID-19; Z56.0 Unemployment, unspecified
CPT/HCPCS: 36415; 80053; 80305; 80307; 82140; 82962; 83036; 85027; 86780; 87811; 93005; 93010

== ENCOUNTER 2023-06-16 13:54 | Inpatient (IN) | payer OTHER ==
[2023-06-16] MEDS ORDERED: NICOTINE POLACRILEX 4 MG LOZENGE BC PRN (14:43)
[2023-06-16] MEDS ORDERED: MAGNESIUM HYDROX 2400MG/30ML ORAL SUSPENSION 30 ML CUP PO PRN (14:43)
[2023-06-16] MEDS ORDERED: NALOXONE (NYS OPIOID OVERDOSE PROGRAM) 4 MG/0.1 ML SPRAY NS PRN (14:43)
[2023-06-16] MEDS ORDERED: METHOCARBAMOL 500 MG TABLET PO PRN (14:43)
[2023-06-16] MEDS ORDERED: ACETAMINOPHEN 325 MG TABLET (FP) PO PRN (14:43)
[2023-06-16] MEDS ORDERED: hydrOXYzine PAMOATE 25 MG CAPSULE (FP) PO PRN (14:43)
[2023-06-16] MEDS ORDERED: NALOXONE HCL 0.4 MG/ML VIAL IVPUSH PRN (14:43)
[2023-06-16] MEDS ORDERED: MAG HYDROX/AL HYDROX/SIMETH 30 ML UNIT-DOSE CUP PO PRN (14:43)
[2023-06-16] MEDS ORDERED: POLYETHYLENE GLYCOL (HEALTHYLAX) 3350 17 GM PACKET PO PRN (14:43)
[2023-06-16] MEDS ORDERED: guaiFENesin 600 MG TABLET.ER (FP) PO PRN (14:43)
[2023-06-16] MEDS ORDERED: BENZONATATE 200 MG CAPSULE PO PRN (14:43)
[2023-06-16] MEDS ORDERED: BENZOCAINE/MENTHOL (CHLORASEPTIC ) LOZENGE MM PRN (14:43)
[2023-06-16] MEDS ORDERED: IBUPROFEN 400 MG TABLET (FP) PO PRN (14:43)
[2023-06-16] MEDS ORDERED: NICOTINE POLACRILEX 4 MG GUM BUC PRN (14:43)
[2023-06-16] MEDS ORDERED: IBUPROFEN 600 MG TABLET (FP) PO PRN (14:43)
[2023-06-16] MEDS ORDERED: LOPERAMIDE HCL 2 MG CAPSULE PO PRN (14:43)
[2023-06-16] MEDS ORDERED: ALBUTEROL SO4 HFA INHALER IH PRN (14:47)
[2023-06-16] MEDS: INSULIN ASPART SLIDING SCALE (NOVOLOG) 1 VIAL SQ SCH (17:05)
[2023-06-16] MEDS: MELATONIN 5 MG TABLETS PO SCH (22:11)
[2023-06-16] MEDS: LACTULOSE 20 GM/30 ML UDC (FOR ORAL USE ONLY) PO SCH (22:11)
[2023-06-16] MEDS: THIAMINE 100 MG TABLET PO SCH (22:11)
[2023-06-16] MEDS: PANTOPRAZOLE 20 MG TABLET PO SCH (22:12)
[2023-06-16] MEDS: QUEtiapine FUMARATE 50 MG TABLET PO SCH (22:12)
[2023-06-17] MEDS: PRENATAL VITAMINS W/ FOLIC ACID TABLET (FP) PO SCH (09:48)
[2023-06-17] MEDS ORDERED: QUEtiapine FUMARATE 50 MG TABLET PO SCH (10:00)
[2023-06-18] MEDS ORDERED: INSULIN ASPART SLIDING SCALE (NOVOLOG) 1 VIAL SQ SCH (12:16)
[2023-06-18] MEDS: INSULIN ASPART SLIDING SCALE (NOVOLOG) 1 VIAL SQ SCH (16:22)
[2023-06-19] MEDS ORDERED: LACTULOSE 20 GM/30 ML UDC (FOR ORAL USE ONLY) PO PRN (09:24)
[2023-06-22] MEDS: CLINDAMYCIN PHOSPHATE 1% TOPICAL GEL 30 GM TUBE TP SCH (21:18)
[2023-06-26 06:50] VITALS: RESP 20
[2023-06-27 06:56] VITALS: BP 149/81; PULSE 62; TEMP 97.5
== END 2023-06-27 13:20 | disposition home or self-care (01) | DRG 772 ==
LOC: YASAS 13:54 → Y3W 14:03
PROVIDERS: ADMIT Allergy & Immunology; ATTEND Psychiatry & Neurology Pain Medicine
PROC: HZ42ZZZ Group Counseling for Substance Abuse Treatment, Cognitive-Behavioral (ICD-10-PCS; principal; 2023-06-16)
DX: F10.20 Alcohol dependence, uncomplicated (principal); F14.20 Cocaine dependence, uncomplicated; F17.210 Nicotine dependence, cigarettes, uncomplicated; F19.282 Other psychoactive substance dependence with psychoactive substance-induced sleep disorder; F41.9 Anxiety disorder, unspecified; I10 Essential (primary) hypertension; J45.909 Unspecified asthma, uncomplicated; K21.9 Gastro-esophageal reflux disease without esophagitis; N40.0 Benign prostatic hyperplasia without lower urinary tract symptoms; E11.9 Type 2 diabetes mellitus without complications; R79.89 Other specified abnormal findings of blood chemistry; Z87.11 Personal history of peptic ulcer disease
CPT/HCPCS: 82140; 82962

== ENCOUNTER 2024-10-04 11:36 | Inpatient (IN) | payer OTHER ==
[2024-10-04] MEDS ORDERED: NALOXONE (NARCAN) HCL 4 MG/0.1 ML SPRAY NS PRN (12:51)
[2024-10-04] MEDS ORDERED: IBUPROFEN 600 MG TABLET (FP) PO PRN (12:51)
[2024-10-04] MEDS ORDERED: MAGNESIUM HYDROX 2400MG/30ML ORAL SUSPENSION 30 ML CUP PO PRN (12:51)
[2024-10-04] MEDS ORDERED: POLYETHYLENE GLYCOL (HEALTHYLAX) 3350 17 GM PACKET PO PRN (12:51)
[2024-10-04] MEDS ORDERED: MAG HYDROX/AL HYDROX/SIMETH 30 ML UNIT-DOSE CUP PO PRN (12:51)
[2024-10-04] MEDS ORDERED: BISMUTH SUBSALICYLATE 524 MG/30 ML PO PRN (12:51)
[2024-10-04] MEDS ORDERED: ACETAMINOPHEN 325 MG TABLET (FP) PO PRN (12:51)
[2024-10-04] MEDS ORDERED: BENZOCAINE/MENTHOL (CHLORASEPTIC ) LOZENGE MM PRN (12:51)
[2024-10-04] MEDS ORDERED: hydrOXYzine PAMOATE 25 MG CAPSULE (FP) PO PRN (12:51)
[2024-10-04] MEDS ORDERED: ONDANSETRON *ODT* 4 MG TABLET SL PRN (12:51)
[2024-10-04] MEDS ORDERED: IBUPROFEN 400 MG TABLET (FP) PO PRN (12:51)
[2024-10-04] MEDS ORDERED: DICYCLOMINE HCL 10 MG CAPSULE PO PRN (12:51)
[2024-10-04] MEDS ORDERED: BENZONATATE 200 MG CAPSULE PO PRN (12:51)
[2024-10-04] MEDS ORDERED: LOPERAMIDE HCL 2 MG CAPSULE PO PRN (12:51)
[2024-10-04] MEDS ORDERED: guaiFENesin 600 MG TABLET.ER (FP) PO PRN (12:51)
[2024-10-04 13:00] VITALS: BMI 23.6
[2024-10-04] MEDS ORDERED: PRENATAL VITAMINS W/ FOLIC ACID TABLET (FP) PO ONE (13:56)
[2024-10-04] MEDS: PRENATAL VITAMINS W/ FOLIC ACID TABLET (FP) PO SCH (13:59)
[2024-10-04] MEDS: THIAMINE 100 MG TABLET PO SCH (22:12)
[2024-10-04] MEDS: MELATONIN 5 MG TABLETS PO SCH (22:12)
[2024-10-04] MEDS: QUEtiapine FUMARATE 100 MG TABLET (FP) PO SCH (22:13)
[2024-10-05 10:17] LABS: MCHC 32.5 g/dl (32.3-36.5); MEAN CELL VOLUME 92.8 fl (79.0-92.2); MEAN PLT VOLUME 10.8 fl (9.4-12.4); RDW 11.7 % (12.2-16.4)
[2024-10-05 10:29] LABS: GLUCOSE,RANDOM 144.0 mg/dL (74-106); TOT PROT 6.3 g/dl (6.4-8.2)
[2024-10-05 10:30] LABS: CO2 24.0 mmol/L (21-32)
[2024-10-05 10:31] LABS: ALK PHOS 61.0 U/L (40-150)
[2024-10-05 10:34] LABS: CREATININE 0.85 mg/dL (0.55-1.3); SGOT/AST 33.0 U/L (5-34); SGPT/ALT 18.0 U/L (0-55)
[2024-10-05] MEDS: POTASSIUM CHLORIDE ORAL LIQUID 20 MEQ/15 ML PO ONE (12:19)
[2024-10-05] MEDS: LACTULOSE 20 GM/30 ML UDC (FOR ORAL USE ONLY) PO SCH (13:49)
[2024-10-06] MEDS ORDERED: ALBUTEROL SO4 HFA INHALER IH PRN (12:21)
[2024-10-06] MEDS: TAMSULOSIN HCL 0.4 MG CAP PO SCH (22:31)
[2024-10-06] MEDS: PANTOPRAZOLE 20 MG TABLET PO SCH (22:32)
[2024-10-07] MEDS: METHOCARBAMOL 500 MG TABLET PO PRN (22:06)
[2024-10-08 09:08] VITALS: TEMP 97.6
[2024-10-08 12:42] VITALS: BP 141/80; PULSE 83; RESP 18
== END 2024-10-08 15:00 | disposition other institution (70) | DRG 774 ==
LOC: YASAS 11:36 → Y6N 13:54
PROVIDERS: ADMIT Allergy & Immunology; ATTEND Allergy & Immunology
PROC: HZ2ZZZZ Detoxification Services for Substance Abuse Treatment (ICD-10-PCS; principal; 2024-10-04)
DX: F10.230 Alcohol dependence with withdrawal, uncomplicated (principal); F14.20 Cocaine dependence, uncomplicated; F12.20 Cannabis dependence, uncomplicated; F17.210 Nicotine dependence, cigarettes, uncomplicated; F19.24 Other psychoactive substance dependence with psychoactive substance-induced mood disorder; F19.280 Other psychoactive substance dependence with psychoactive substance-induced anxiety disorder; F19.282 Other psychoactive substance dependence with psychoactive substance-induced sleep disorder; E72.20 Disorder of urea cycle metabolism, unspecified; E87.6 Hypokalemia; E78.00 Pure hypercholesterolemia, unspecified; J45.909 Unspecified asthma, uncomplicated; K21.9 Gastro-esophageal reflux disease without esophagitis; N40.0 Benign prostatic hyperplasia without lower urinary tract symptoms; Z88.8 Allergy status to other drugs, medicaments and biological substances
CPT/HCPCS: 36415; 71046-TC-FY; 80053; 80307; 82140; 82962; 84132; 85027; 86780; 93005; 93010